=== PATIENT | female | born 1940 | race Caucasian/White ===

== ENCOUNTER 2017-03-05 11:47 | Inpatient (IN) | payer MEDICARE ==
[~2017-03-05] VITALS: Ht 167.6 cm; Wt 82.2 kg
[~2017-03-05 11:47] MED LIST: FOSA70TA PO; GABA300 PO; HYDR500C PO; LEVO150T7 PO; LORA-474 PO; NIFE1TAB85 PO; OMEP20TA39 PO; OXYBXL5 PO; PERC5TAB12 PO; RIVA20 PO; VITA20002 PO; VITA500T83 PO
[2017-03-05 11:48] VITALS: BP 153/70; PULSE 85; RESP 24; TEMP 98.8; O2SAT 97
--- NOTE | 2017-03-05 11:55 | PD ---
Physical Exam Date Seen by Provider: Mar 05, 2017 Time Seen by Provider: 11:51 Narrative 76 Y/O female presents with generalized Weakness and dry mouth and nose. Patient also reports falling out of bed 3 days ago, as she was pushed out of bed by her dog, but denies any pain or LOC. Patient feels Lightheaded and weak. Patient feels exhausted. Denies fever. No nausea. V/S Stable. Patient awaiting Med Bed Placement. Data Data Last Documented VS Vital Signs Date Time Temp Pulse Resp B/P Pulse Ox O2 Delivery O2 Flow Rate FiO2 03/05/17 11:48 98.8 85 24 153/70 97 Room Air [facility] Medical Record Reviewed: Yes Supervised Visit with AVERY: Yes Condition: Stable [place] Dumont Mar 05, 2017 11:55
[2017-03-05 13:15] LABS: AUTOMATED NEUTROPHIL # 21.8 TH/MM3 (1.8-7.7); BASOPHIL # 0.1 TH/MM3 (0-0.2); BASOPHIL % 0.2 % (0.0-2.0); HEMATOCRIT 37.5 % (35.0-46.0); LYMPH % 5.7 % (9.0-44.0); LYMPHOCYTE # 1.4 TH/MM3 (1.0-4.8); MEAN CELL VOLUME 97.7 FL (80.0-100.0); MEAN CORPUSCULAR HEMOGLOBIN 30.4 PG (27.0-34.0); MEAN CORPUSCULAR HGB CONC 31.1 % (32.0-36.0); MONO % 4.5 % (0.0-8.0); NEUT % 89.6 % (16.0-70.0); PLATELET COUNT 324 TH/MM3 (150-450); RED BLOOD COUNT 3.84 MIL/MM3 (4.00-5.30); RED CELL DISTRIBUTION WIDTH 14.3 % (11.6-17.2); WHITE BLOOD COUNT 24.3 TH/MM3 (4.0-11.0)
[2017-03-05 13:17] LABS: HEMO FLAGS AUTO DIFF
--- NOTE | 2017-03-05 13:37 | PD ---
HPI Chief Complaint: General Weakness Time Seen by Provider: 13:37 Travel History International Travel<30 days: No Contact w/Intl Traveler<30days: No Traveled to known affect area: No History of Present Illness HPI 76-year-old female with PMH of anemia, splenic infarction, urinary incontinence s/p InterStim implant, right AKA on Xarelto presents to the ED for evaluation of "weeks" long history of weakness, malaise, cough, anorexia. Patient denies dizziness, fevers, chills, chest pain, shortness of breath, abdominal pain, nausea, vomiting, back pain. She states that today the cough has been productive of yellowish-green sputum. She states that she saw her primary care and finished a course of Augmentin 2 days ago with no improvement of symptoms. PFSH Past Medical History Hx Anticoagulant Therapy: Yes Arthritis: Yes (OSTEO) Asthma: Yes Cancer: No Cardiovascular Problems: Yes Chemotherapy: No Cerebrovascular Accident: No Diabetes: No Diminished Hearing: No Endocrine: Yes Fibromyalgia: Yes Gastrointestinal Disorders: No Genitourinary: Yes (INCONTINENCE) Hepatitis: No Hiatal Hernia: No Hypertension: Yes Immune Disorder: Yes (FIBROMYALGIA) Implanted Vascular Access Dvce: Yes Musculoskeletal: Yes (OSTEOPOROSIS) Neurologic: No Psychiatric: No Reproductive: No Respiratory: Yes (ASTHMA) Thyroid Disease: Yes (HYPOTHYROID) Menopausal: Yes Ovarian Cysts: Yes Past Surgical History Abdominal Surgery: Yes (APPY) AICD: No Appendectomy: Yes Arteriovenous Shunt: No Body Medical Devices: BREAST IMPLANTS Cardiac Surgery: No Ear Surgery: No Endocrine Surgery: No Eye Surgery: No Genitourinary Surgery: Yes (BLADDER SLING) Gynecologic Surgery: Yes (HYSTERECTOMY) Hysterectomy: Yes Insulin Pump: No Joint Replacement: Yes (left hip) Neurologic Surgery: No Oral Surgery: No Pacemaker: No Thoracic Surgery: Yes (BREAST IMPLANTS) Other Surgery: Yes Social History Alcohol Use: Yes (OCC) Tobacco Use: No Substance Use: No Allergies-Medications (Allergen,Severity, Reaction): Coded Allergies: Bacitracin (Verified Allergy, Severe, 03/05/17) REDNESS, SWELLING Latex (Verified Allergy, Intermediate, 03/05/17) BLISTERS,RED,BURNING SKIN *MDRO Multi-Drug Resistant Organism (Unverified Adverse Reaction, Unknown , 03/05/17) MRSA wound 04/2015. MRSA PCR screen positive - 01/09/16 Reported Meds & Prescriptions Reported Meds & Active Scripts Active Nifedipine Er (Nifedipine) 30 Mg Tab 30 Mg PO DAILY Percocet 5-325 mg (Oxycodone/Acetaminophen) Oxycodone 5/325 Acetaminophen Tab 1 Tab PO Q4H PRN Neurontin (Gabapentin) 300 Mg Cap 300 Mg PO TID 30 Days Xarelto 20 Mg Tab (Rivaroxaban) 20 Mg Tab 20 Mg PO DAILY 30 Days Reported Hydroxyurea 500 Mg Cap 500 Mg PO DAILY Vitamin C (Ascorbic Acid) 500 Mg Tab 500 Mg PO DAILY Ditropan XL 5 mg (Oxybutynin Chloride) 5 Mg Lena 5 Mg PO BID Levothyroxine 150 mcg (Levothyroxine Sodium) 150 Mcg Tab 150 Mcg PO DAILY Ativan (Lorazepam) 1 Mg Tab 1 Mg PO TID Vitamin D-3 (Cholecalciferol) 2 000 Tab 2,000 Unit PO DAILY Hm Omeprazole (Omeprazole) 20 Mg Tab 20 Mg PO DAILY Fosamax (Alendronate Sodium) 70 Mg Tab 70 Mg PO Q7D TAKE 30 MINUTES BEFORE THE MORNING MEAL, ONLY WATER Review of Systems Except as stated in HPI: all other systems reviewed are Neg Physical Exam Narrative GENERAL: Well-nourished, well-developed white female in no acute distress. SKIN: Focused skin assessment warm/dry. Right AKA with well-healed surgical scars, no signs of infection. HEAD: Normocephalic. EYES: No scleral icterus. No injection or drainage. ENT: mucous membranes dry. NECK: Supple, trachea midline. No JVD or lymphadenopathy. CARDIOVASCULAR: Regular rate and rhythm without murmurs, gallops, or rubs. RESPIRATORY: Breath sounds clear and equal bilaterally. No accessory muscle use. GASTROINTESTINAL: Abdomen soft, non-tender, nondistended. Active bowel sounds. MUSCULOSKELETAL: No cyanosis. 2+ pitting edema to the mid sanders on the left. Right AKA. BACK: Nontender without obvious deformity. No CVA tenderness. Data Data Last Documented VS Vital Signs Date Time Temp Pulse Resp B/P Pulse Ox O2 Delivery O2 Flow Rate FiO2 03/05/17 11:48 98.8 85 24 153/70 97 Room Air Orders Electrocardiogram (03/05/17 11:55) Complete Blood Count With Diff (03/05/17 11:55) Basic Metabolic Panel (Bmp) (03/05/17 11:55) Troponin I (03/05/17 11:55) Urinalysis - C+S If Indicated (03/05/17 12:34) Ecg Monitoring (03/05/17 14:13) Iv Access Insert/Monitor (03/05/17 14:13) Oximetry (03/05/17 14:13) Sodium Chloride 0.9% Flush (Ns Flush) (03/05/17 14:15) Sodium Chlor 0.9% 1000 Ml Inj (Ns 1000 M (03/05/17 14:13) Chest, Single Ap (03/05/17 14:27) Sodium Chloride 0.9% Flush (Ns Flush) (03/05/17 14:30) B-Type Natriuretic Peptide (03/05/17 14:43) Ceftriaxone Inj (Rocephin Inj) (03/05/17 14:44) Azithromycin Inj (Zithromax Inj) (03/05/17 14:44) Labs Laboratory Tests Test 03/05/17 03/05/17 12:30 13:45 White Blood Count 24.3 TH/MM3 Red Blood Count 3.84 MIL/MM3 Hemoglobin 11.7 GM/DL Hematocrit 37.5 % Mean Corpuscular Volume 97.7 FL Mean Corpuscular Hemoglobin 30.4 PG Mean Corpuscular Hemoglobin 31.1 % Concent Red Cell Distribution Width 14.3 % Platelet Count 324 TH/MM3 Mean Platelet Volume 10.0 FL Neutrophils (%) (Auto) 89.6 % Lymphocytes (%) (Auto) 5.7 % Monocytes (%) (Auto) 4.5 % Eosinophils (%) (Auto) 0.0 % Basophils (%) (Auto) 0.2 % Neutrophils # (Auto) 21.8 TH/MM3 Lymphocytes # (Auto) 1.4 TH/MM3 Monocytes # (Auto) 1.1 TH/MM3 Eosinophils # (Auto) 0.0 TH/MM3 Basophils # (Auto) 0.1 TH/MM3 CBC Comment AUTO DIFF Differential Total Cells 100 Counted Neutrophils % (Manual) 84 % Band Neutrophils % 6 % Lymphocytes % 5 % Monocytes % 4 % Neutrophils # (Manual) 22.1 TH/MM3 Myelocytes 1 % Differential Comment FINAL DIFF MANUAL Platelet Estimate NORMAL Platelet Morphology Comment NORMAL Sodium Level 140 MEQ/L Potassium Level 4.0 MEQ/L Chloride Level 107 MEQ/L Carbon Dioxide Level 27.8 MEQ/L Anion Gap 5 MEQ/L Blood Urea Nitrogen 19 MG/DL Creatinine 0.90 MG/DL Estimat Glomerular Filtration 61 ML/MIN Rate Random Glucose 131 MG/DL Calcium Level 8.8 MG/DL Troponin I LESS THAN 0.02 NG/ML Urine Color YELLOW Urine Turbidity CLEAR Urine pH 6.5 Urine Specific [place] 1.014 Urine Protein TRACE mg/dL Urine Glucose (UA) NEG mg/dL Urine Ketones NEG mg/dL Urine Occult Blood TRACE Urine Nitrite NEG Urine Bilirubin NEG Urine Urobilinogen LESS THAN 2.0 MG/DL Urine Leukocyte Esterase NEG Urine RBC LESS THAN 1 /hpf Urine WBC 1 /hpf Urine Squamous Epithelial 1 /hpf Cells Urine Transitional Epithelial <1 /hpf Cells Urine Bacteria RARE /hpf Microscopic Urinalysis Comment CULT NOT INDICATED MDM Medical Decision Making Medical Screen Exam Complete: Yes Emergency Medical Condition: Yes Differential Diagnosis Anemia versus dehydration versus pneumonia versus UTI versus electrolyte abnormality versus other Narrative Course 76-year-old female with PMH of anemia, splenic infarction, urinary incontinence s/p InterStim implant, right AKA on Xarelto presents to the ED for evaluation of "weeks" long history of weakness, malaise, cough, anorexia. Patient denies dizziness, fevers, chills, chest pain, shortness of breath, abdominal pain, nausea, vomiting, back pain. She states that today the cough has been productive of yellowish-green sputum. She states that she saw her primary care and finished a course of Augmentin 2 days ago with no improvement of symptoms. Followed by Dr. Coates, PCP. Vitals reviewed. O2 saturation 97% on room air. Physical exam reveals a nontoxic-appearing white female in no acute distress. Chest is clear to auscultation bilaterally. Abdomen soft, nontender. Well- healed right AKA stump. 2+ pitting edema to the mid sanders on the left leg. Palpable DP pulse. Otherwise unremarkable. Patient was placed on continuous monitoring. IV is established. CBC: WBC 24.3 with a left shift. CMP: BUN 19, creatinine 0.9 BNP: pending Troponin: Less than 0.02. EKG: rate 78, QRS 96 ms, QTC 435 ms, normal axis. No ST changes. Reading obscured by InterStim interference. Reviewed by Dr. Costello. CXR: Patchy areas of non-consolidative infiltrate in the left lower lung per radiology read. UA: no culture indicated Patient was administered 1 L normal saline, IV Rocephin, IV azithromycin. Patient has failed outpatient treatment, call placed to [facility] for admission. I spoke with Dr. Campbell who agrees to accept the patient to the medicine service. Please see medicine notes for disposition. Diagnosis Primary Impression: Left lower lobe pneumonia Qualified Code: J18.1 - Pneumonia of left lower lobe due to infectious organism Additional Impression: Dehydration Condition: Stable Mariela Alanis Mar 05, 2017 13:37
[2017-03-05 13:44] LABS: ANION GAP 5 MEQ/L (5-15); BICARBONATE 27.8 MEQ/L (21.0-32.0); BLOOD UREA NITROGEN 19 MG/DL (7-18); CHLORIDE 107 MEQ/L (98-107); GLOMERULAR FILTRATION RATE 61 ML/MIN (>89); SODIUM (NA) 140 MEQ/L (136-145)
[2017-03-05 13:50] LABS: BANDS 6 % (0-6); MYELOCYTES 1 % (0-0); NEUTROPHIL # MANUAL DIFF 22.1 TH/MM3 (1.8-7.7); POLYS (SEG NEUTROPHILS) 84 % (16-70); WBC DIFF SAMPLE 100
[2017-03-05 13:52] LABS: PLATELET ESTIMATE SMEAR NORMAL (NORMAL); PLATELET MORPHOLOGY NORMAL (NORMAL); SCAN/DIFF FINAL DIFF MANUAL
[2017-03-05] MEDS ORDERED: SODIUM CHLOR 0.9% 1000 ML INJ 1,000 ML IV ONE (14:13)
[2017-03-05] MEDS ORDERED: SODIUM CHLORIDE 0.9% FLUSH 10 ML FLUSH IVF PRN ×2 (14:15→14:30)
[2017-03-05 14:23] LABS: BACTERIA, URINE RARE /hpf; BLOOD, URINE TRACE (NEG); COMMENT (UR) CULT NOT INDICATED; CULTURE IF INDICATED CULT NOT INDICATED; GLUCOSE,URINE NEG (NEG); KETONE, URINE NEG (NEG); NITRITE,URINE NEG (NEG); PH, URINE 6.5 (5.0-8.5); SQUAMOUS EPITHELIAL CELL URINE 1 /hpf (0-5); TRANSITIONAL EPI CELLS, URINE <1 /hpf; URINE COLOR YELLOW (YELLW/STRAW)
[2017-03-05] MEDS ORDERED: cefTRIAXone INJ 2,000 MG in SODIUM CHLORIDE 0.9% INJ 100 ML IV STA (14:44)
[2017-03-05] MEDS ORDERED: AZITHROMYCIN INJ 500 MG in SODIUM CHLOR 0.9% 250 ML INJ 250 ML IV STA (14:44)
--- NOTE | 2017-03-05 15:21 | RADRPT ---
EXAM DATE/TIME: 03/05/2017 15:00 [facility] COMPARISON: CHEST SINGLE AP, January 04, 2016, 13:45. INDICATIONS : Cough and shortness of breath post treatment for bronchitis. MEDICAL HISTORY : Hypertension. asthma; ovarian cysts SURGICAL HISTORY : Appendectomy. Hysterectomy. ENCOUNTER: Initial ACUITY: 2 weeks PAIN SCORE: 5/10 LOCATION: Bilateral upper chest FINDINGS: The patient is mildly rotated towards the right. There are patchy areas of infiltrate in the lower l ateral right lung without consolidation. Both hemidiaphragms will delineated. Left lung is clear. The heart is normal in size. CONCLUSION: Patchy areas of non-consolidative infiltrate lower lateral right lung. Anibal Alves MD on March 05, 2017 at 15:19 Board Certified Radiologist. This report was verified electronically.
[2017-03-05 15:45] VITALS: O2SAT 100
[2017-03-05] MEDS ORDERED: ASCO500T PO (16:29)
[2017-03-05] MEDS ORDERED: FOSA70TA PO (16:29)
[2017-03-05] MEDS ORDERED: GABA300C5 PO (16:34)
[2017-03-05] MEDS ORDERED: HYDR500C2 PO (16:34)
[2017-03-05] MEDS ORDERED: LEVO150T7 PO (16:34)
[2017-03-05] MEDS ORDERED: D-20TAB3 PO (16:34)
[2017-03-05] MEDS ORDERED: LORA-474 PO (16:37)
[2017-03-05] MEDS ORDERED: XARE20TA PO (16:41)
[2017-03-05] MEDS ORDERED: NIFE30TA61 PO (16:41)
[2017-03-05] MEDS ORDERED: OXYC1CAP PO (16:41)
[2017-03-05] MEDS ORDERED: ACETAMINOPHEN 325 MG TAB PO PRN (17:45)
--- NOTE | 2017-03-05 17:45 | HHI.HP ---
HPI Service [facility] Hospitalists Primary Care Physician [place] Coates M.D. Admission Diagnosis pneumonia weakness Chief Complaint: weak/sob Travel History International Travel<30 Days: No Contact w/Intl Traveler <30 Da: No Traveled to Known Affected Are: No History of Present Illness Pt is 76 yo with hypercoagulable d/o, essential thrombocytosis, myelofibrosis, right aka, who presents with sob and weakness. In ED found to have pna and given rocephin and azithromycin. no n/v/d. Pt was initially very weak and lethargic when I entered the room. I began asking questions about her dog and she became very alert and appeared in no distress. Review of Systems Other generally weak cough Past Family Social History Past Medical History Hypercoagulable essential thrombocytosis myelofibrosis pancreatitis splenic infarction right leg thromboembolic occlusion Osteoarthritis HTN Anemia Hyperlipidemia Hypothyroidism Asthma ckd Anxiety/Depression Fibromyalgia Hx of erosive gastritis right AKA on 01/24/[address] Frobes Left total hip arthroplasty with direct anterior exposure Anterior colporrhaphy Hysterectomy Tubal ligation Breast lumpectomy (benign) Reported Medications Reported Meds & Active Scripts Active Reported Xarelto (Rivaroxaban) 20 Mg Tab 20 Mg PO DAILY Oxycodone (Oxycodone HCl) 5 Mg Cap 5 Mg PO Q4H PRN Nifedipine ER 24 HR (Nifedipine) 30 Mg Tab 30 Mg PO DAILY Ativan (Lorazepam) 1 Mg Tab 1 Mg PO TID PRN Levothyroxine (Levothyroxine Sodium) 150 Mcg Tab 150 Mcg PO DAILY Hydroxyurea 500 Mg Cap 500 Mg PO DAILY Gabapentin 300 Mg Cap 300 Mg PO TID D-2000 Maximum Strength (Cholecalciferol) 2,000 Unit Tab 2,000 Units PO DAILY Ascorbic Acid 500 Mg Tab 500 Mg PO Allergies: Coded Allergies: Bacitracin (Verified Allergy, Severe, 03/05/17) REDNESS, SWELLING Latex (Verified Allergy, Intermediate, 03/05/17) BLISTERS,RED,BURNING SKIN *MDRO Multi-Drug Resistant Organism (Unverified Adverse Reaction, Unknown , 03/05/17) MRSA wound 04/2015. MRSA PCR screen positive - 01/09/16 Family History Mother - Hx of aneurysm, blood clot when she was Father - CAD/[place] Brother - Hx of CAD, Ulcerative colitis, Diabetes Sister - Hx of colon cancer Social History no etoh/tob Physical Exam Vital Signs initially appeared lethargic after mentioning her dog..pt perked up and was very alert and no appearance of labored breathing. heart reg lung wheezes gavin. diminished bases abd s/nt ext right aka. Vital Signs Date Time Temp Pulse Resp B/P Pulse Ox O2 Delivery O2 Flow Rate FiO2 03/05/17 15:45 Room Air 03/05/17 15:45 100 Room Air 03/05/17 11:48 98.8 85 24 153/70 97 Room Air Laboratory Laboratory Tests Test 03/05/17 03/05/17 12:30 13:45 White Blood Count 24.3 Red Blood Count 3.84 Hemoglobin 11.7 Hematocrit 37.5 Mean Corpuscular Volume 97.7 Mean Corpuscular Hemoglobin 30.4 Mean Corpuscular Hemoglobin 31.1 Concent Red Cell Distribution Width 14.3 Platelet Count 324 Mean Platelet Volume 10.0 Neutrophils (%) (Auto) 89.6 Lymphocytes (%) (Auto) 5.7 Monocytes (%) (Auto) 4.5 Eosinophils (%) (Auto) 0.0 Basophils (%) (Auto) 0.2 Neutrophils # (Auto) 21.8 Lymphocytes # (Auto) 1.4 Monocytes # (Auto) 1.1 Eosinophils # (Auto) 0.0 Basophils # (Auto) 0.1 CBC Comment AUTO DIFF Differential Total Cells 100 Counted Neutrophils % (Manual) 84 Band Neutrophils % 6 Lymphocytes % 5 Monocytes % 4 Neutrophils # (Manual) 22.1 Myelocytes 1 Differential Comment FINAL DIFF MANUAL Platelet Estimate NORMAL Platelet Morphology Comment NORMAL Sodium Level 140 Potassium Level 4.0 Chloride Level 107 Carbon Dioxide Level 27.8 Anion Gap 5 Blood Urea Nitrogen 19 Creatinine 0.90 Estimat Glomerular Filtration 61 Rate Random Glucose 131 Calcium Level 8.8 Troponin I LESS THAN 0.02 Urine Color YELLOW Urine Turbidity CLEAR Urine pH 6.5 Urine Specific [place] 1.014 Urine Protein TRACE Urine Glucose (UA) NEG Urine Ketones NEG Urine Occult Blood TRACE Urine Nitrite NEG Urine Bilirubin NEG Urine Urobilinogen LESS THAN 2.0 Urine Leukocyte Esterase NEG Urine RBC LESS THAN 1 Urine WBC 1 Urine Squamous Epithelial 1 Cells Urine Transitional Epithelial <1 Cells Urine Bacteria RARE Microscopic Urinalysis Comment CULT NOT INDICATED Result Diagram: 03/05/17 1230 03/05/17 1230 Assessment and Plan Problem List: (1) Pneumonia Status: Acute Plan: Pt is 76 yo with essential thrombocytosis, myelofibrosis, hypercoagulable problems with both venous and arterial thrombosis. right AKA. on chronic hydrea and xarelto. presents with cough and weakness. found to have wbc 24k and right lung infiltrate concerning for CAP. cont iv abx to cover CAP nebs as needed. CTchest. oxygen PT. cont her xarelto and hydrea further w/up as needed. 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 In the case of services not specified as inpatient-only, they are appropriately provided as inpatient services in accordance with the 2-midnight benchmark. Estimated LOS (days): 3 3 days is the estimated time the patient will need to remain in the hospital, assuming treatment plan goals are met and no additional complications. Post-Hospital Plan: Home Austin Campbell MD Mar 05, 2017 17:45
[2017-03-05] MEDS: GABAPENTIN 300 MG CAP PO SCH (19:17)
[2017-03-05] MEDS: RESP: ALBUTEROL 2.5 MG/IPRATROPIUM 0.5 MG NEB (SCH) NEB (19:19)
[2017-03-05 19:20] VITALS: O2SAT 96
[2017-03-05 20:10] VITALS: TEMP 98.9
[2017-03-05 20:17] VITALS: BP 138/62; PULSE 93; RESP 18; TEMP 98; O2SAT 97
--- NOTE | 2017-03-05 20:32 | RADRPT ---
EXAM DATE/TIME: 03/05/2017 19:49 [facility] COMPARISON: CT THORAX W/O CONTRAST, January 27, 2015, 20:49. INDICATIONS : Shortness of breath; possible pneumonia. RADIATION DOSE: 6.14 CTDIvol (mGy) MEDICAL HISTORY : Cardiovascular disease. Hypertension. SURGICAL HISTORY : breast augmentation ENCOUNTER: Initial ACUITY: 1 day PAIN SCALE: 0/10 LOCATION: chest TECHNIQUE: Volumetric scanning of the chest was performed. Using automated exposure control and adjustment of t he mA and/or kV according to patient size, radiation dose was kept as low as reasonably achievable to obtain optimal diagnostic quality images. FINDINGS: LUNGS: There are new scattered areas of opacity, characterized by increased ground substance and non-consoli dative opacity located in the periphery of the right lower lung and in the lateral left midlung. No focal areas of consolidation seen. PLEURAE: Prior CT had demonstrated a moderate-sized left pleural effusion. This has resolved. No pleural eff usion seen on today's examination. MEDIASTINUM: The heart and great vessels demonstrate no acute abnormality. There is no mediastinal or hilar lymph adenopathy. AXILLAE: Within normal limits. No lymphadenopathy. Bilateral breast implants. MUSCULOSKELETAL: Within normal limits for patient age. MISCELLANEOUS: Prior CT demonstrated marked splenomegaly. The spleen is normal today's exam measuring 7.1 cm in garcia perior/inferior extent. CONCLUSION: 1. There are new patchy areas of non-consolidative infiltrate and groundglass opacity in the peripher y of the right lung and a solitary area of non-consolidative infiltrate in the left lung. 2. Interval resolution of left pleural effusion and splenomegaly. Anibal Alves MD on March 05, 2017 at 20:25 Board Certified Radiologist. This report was verified electronically.
[2017-03-06] VITALS (7 sets, daily range): BP systolic 106–126; BP diastolic 53–71; PULSE 68–95; RESP 16–20; TEMP 98–99.8; O2SAT 95–99
[2017-03-06] MEDS: LEVOTHYROXINE SODIUM 150 MCG TAB PO SCH (05:34)
[2017-03-06 07:23] LABS: AUTOMATED NEUTROPHIL # 12.1 TH/MM3 (1.8-7.7); BASOPHIL # 0.1 TH/MM3 (0-0.2); BASOPHIL % 0.8 % (0.0-2.0); EOSINOPHIL # 0.5 TH/MM3 (0-0.4); HEMO FLAGS DIFF FINAL; LYMPH % 14.3 % (9.0-44.0); LYMPHOCYTE # 2.4 TH/MM3 (1.0-4.8); MEAN CORPUSCULAR HEMOGLOBIN 30.9 PG (27.0-34.0); MEAN CORPUSCULAR HGB CONC 31.6 % (32.0-36.0); MONO % 10.7 % (0.0-8.0); NEUT % 71.2 % (16.0-70.0); PLATELET COUNT 274 TH/MM3 (150-450); RED BLOOD COUNT 3.36 MIL/MM3 (4.00-5.30); RED CELL DISTRIBUTION WIDTH 14.3 % (11.6-17.2); WHITE BLOOD COUNT 16.9 TH/MM3 (4.0-11.0)
[2017-03-06 07:28] LABS: BICARBONATE 23.6 MEQ/L (21.0-32.0); POTASSIUM 3.4 MEQ/L (3.5-5.1)
[2017-03-06] MEDS: RESP: ALBUTEROL 2.5 MG/IPRATROPIUM 0.5 MG NEB (SCH) NEB ×3 (08:10→20:50)
[2017-03-06] MEDS: NIFEdipine 30 MG SUSTAINED RELEASE TAB PO SCH ×2 (09:00→09:23)
[2017-03-06] MEDS: HYDROXYUREA 500 MG CAP PO SCH (09:22)
[2017-03-06] MEDS: GABAPENTIN 300 MG CAP PO SCH ×3 (09:23→18:08)
[2017-03-06] MEDS: RIVAROXABAN 20 MG TAB PO SCH (09:23)
--- NOTE | 2017-03-06 13:06 | HHI.PR ---
Subjective Remarks pt seems more alert and comfortable. Objective Vitals heart reg lung course bs gavin abd s/nt ext no edema. aka right Vital Signs Date Time Temp Pulse Resp B/P Pulse Ox O2 Delivery O2 Flow Rate FiO2 03/06/17 12:01 98.2 91 18 106/53 96 03/06/17 08:11 99 21 03/06/17 08:00 Room Air 03/06/17 08:00 98.7 76 20 126/71 97 03/06/17 04:00 98.0 72 16 116/59 97 03/06/17 00:00 98.1 85 18 112/56 99 03/06/17 00:00 Room Air 03/05/17 20:17 98.0 93 18 138/62 97 03/05/17 20:10 98.9 03/05/17 19:20 96 03/05/17 15:45 Room Air 03/05/17 15:45 100 Room Air 03/05/17 03/05/17 03/06/17 15:00 23:00 07:00 Intake Total 120 ml 120 ml Balance 120 ml 120 ml Intake Oral 120 ml 120 ml # Voids 1 1 # Bowel Movements 0 0 Result Diagram: 03/06/17 0637 03/06/17 0637 A/P Problem List: (1) Pneumonia Status: Acute Plan: Pt is 76 yo with essential thrombocytosis, myelofibrosis, hypercoagulable problems with both venous and arterial thrombosis. right AKA. on chronic hydrea and xarelto. presents with cough and weakness. found to have wbc 24k and right lung infiltrate concerning for CAP. ct shows smaller infiltrate on the left. overall today seems better. wbc trending down sputum gs/cx. urine antigens nebs prn mucinex cont abx oxygen PT. 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
[2017-03-06] MEDS ORDERED: PADIMATE (CHAPSTICK) 4.5 GM TUBE TOPICAL PRN (13:15)
[2017-03-06] MEDS ORDERED: guaiFENesin E.R. 600 MG TAB PO ONE (13:15)
[2017-03-06] MEDS ORDERED: PADIMATE (CHAPSTICK) 4.5 GM TUBE TOPICAL ONE (13:15)
--- NOTE | 2017-03-06 14:39 | EKG ---
Date Performed: 03/05/2017 Time Performed: 12:13:43 PTAGE: 76 years EKG: ELECTRONIC ATRIAL PACEMAKER Tracing appears to have an atrial pacer at a high escape rate, conduction is controlled by sinus mechanism. Possibility of artifact should also be considered Clinic al correlation is strongly recommended ABNORMAL RHYTHM ECG PREVIOUS TRACING : 01/04/2016 13.39 DOCTOR: Eris Best Interpretating Date/Time 03/06/2017 14:38:04
[2017-03-06] MEDS: cefTRIAXone INJ 1,000 MG in SODIUM CHLORIDE 0.9% INJ 100 ML IV SCH (15:55)
[2017-03-06] MEDS: AZITHROMYCIN INJ 500 MG in SODIUM CHLOR 0.9% 250 ML INJ 250 ML IV SCH (18:07)
[2017-03-06] MEDS: LORazepam 1 MG TAB PO PRN (21:11)
[2017-03-06] MEDS: guaiFENesin E.R. 600 MG TAB PO SCH (21:11)
[2017-03-07] VITALS (8 sets, daily range): BP systolic 115–160; BP diastolic 56–77; PULSE 66–92; RESP 17–20; TEMP 97.9–99.9; O2SAT 91–98
[2017-03-07] MEDS: LEVOTHYROXINE SODIUM 150 MCG TAB PO SCH (04:05)
[2017-03-07] MEDS: LORazepam 1 MG TAB PO PRN ×2 (04:05→08:39)
[2017-03-07 07:40] LABS: AUTOMATED NEUTROPHIL # 11.5 TH/MM3 (1.8-7.7); BASOPHIL # 0.1 TH/MM3 (0-0.2); BASOPHIL % 0.6 % (0.0-2.0); EOSINOPHIL # 0.6 TH/MM3 (0-0.4); EOSINOPHIL % 3.4 % (0.0-4.0); HEMATOCRIT 33.6 % (35.0-46.0); HEMO FLAGS DIFF FINAL; LYMPH % 14.3 % (9.0-44.0); LYMPHOCYTE # 2.3 TH/MM3 (1.0-4.8); MEAN CELL VOLUME 97.6 FL (80.0-100.0); MEAN CORPUSCULAR HEMOGLOBIN 31.3 PG (27.0-34.0); MONO % 10.4 % (0.0-8.0); NEUT % 71.3 % (16.0-70.0); PLATELET COUNT 288 TH/MM3 (150-450); RED BLOOD COUNT 3.44 MIL/MM3 (4.00-5.30); RED CELL DISTRIBUTION WIDTH 14.5 % (11.6-17.2); WHITE BLOOD COUNT 16.1 TH/MM3 (4.0-11.0)
[2017-03-07 07:54] LABS: BICARBONATE 23.1 MEQ/L (21.0-32.0)
[2017-03-07 07:57] LABS: POTASSIUM 4.2 MEQ/L (3.5-5.1)
[2017-03-07] MEDS: guaiFENesin E.R. 600 MG TAB PO SCH ×2 (08:38→21:50)
[2017-03-07] MEDS: RIVAROXABAN 20 MG TAB PO SCH (08:38)
[2017-03-07] MEDS: GABAPENTIN 300 MG CAP PO SCH ×3 (08:39→17:13)
[2017-03-07] MEDS: HYDROXYUREA 500 MG CAP PO SCH (08:42)
[2017-03-07] MEDS: RESP: ALBUTEROL 2.5 MG/IPRATROPIUM 0.5 MG NEB (SCH) NEB ×3 (09:12→20:48)
--- NOTE | 2017-03-07 09:33 | HHI.PR ---
Subjective Remarks c/o right lbp.msk. starting to cough up sputum Objective Vitals heart reg lung scattered wheezing gavin. diminished right base abd s/nt ext no edema. aka right tender to palpation lumbar paraspinous muscles. Vital Signs Date Time Temp Pulse Resp B/P Pulse Ox O2 Delivery O2 Flow Rate FiO2 03/07/17 08:00 99.2 82 20 140/71 98 03/07/17 04:00 Room Air 03/07/17 04:00 97.9 85 17 160/77 97 03/07/17 00:15 Room Air 03/07/17 00:15 98.1 66 19 115/60 96 03/06/17 20:45 98.4 68 17 113/55 95 03/06/17 20:45 Room Air 03/06/17 16:00 99.8 95 18 119/58 97 03/06/17 12:01 98.2 91 18 106/53 96 03/06/17 03/06/17 03/07/17 15:00 23:00 07:00 Intake Total 480 ml 500 ml 900 ml Balance 480 ml 500 ml 900 ml Intake Oral 480 ml 500 ml 900 ml # Voids 2 1 2 # Bowel Movements 0 0 Result Diagram: 03/07/17 0655 03/07/17 0653 A/P Problem List: (1) Pneumonia Status: Acute Plan: Pt is 76 yo with essential thrombocytosis, myelofibrosis, hypercoagulable problems with both venous and arterial thrombosis. right AKA. on chronic hydrea and xarelto. presents with cough and weakness. found to have wbc 24k and right lung infiltrate concerning for CAP. ct shows smaller infiltrate on the left. sputum gs/cx. urine antigens pending nebs and mucomyst scheduled. mucinex cont abx oxygen PT. oob inc spirometer. cont her xarelto and hydrea few doses naprosyn for lbp. (2) Hypercoagulable state Status: Chronic (3) Essential thrombocytosis Status: Chronic (4) HTN (hypertension), benign Status: Chronic (5) Hypothyroidism Status: Chronic (6) Hyperlipidemia Status: Chronic (7) Hypertension Status: Chronic (8) Above knee amputation of right lower extremity Status: Chronic Austin Campbell MD Mar 07, 2017 09:33
[2017-03-07] MEDS ORDERED: NAPROXEN 500 MG TAB PO ONE (11:00)
[2017-03-07] MEDS: RESP: ACETYLCYSTEINE 20% 30 ML NEB NEB SCH ×2 (13:42→20:48)
[2017-03-07] MEDS: cefTRIAXone INJ 1,000 MG in SODIUM CHLORIDE 0.9% INJ 100 ML IV SCH (15:00)
[2017-03-07] MEDS: AZITHROMYCIN INJ 500 MG in SODIUM CHLOR 0.9% 250 ML INJ 250 ML IV SCH (15:43)
[2017-03-07] MEDS: NAPROXEN 500 MG TAB PO SCH (21:50)
[2017-03-08] VITALS (8 sets, daily range): BP systolic 104–134; BP diastolic 54–73; PULSE 66–96; RESP 14–18; TEMP 97.1–98.1; O2SAT 94–98
[2017-03-08] MEDS: LEVOTHYROXINE SODIUM 150 MCG TAB PO SCH (05:33)
[2017-03-08 08:05] LABS: AUTOMATED NEUTROPHIL # 8.4 TH/MM3 (1.8-7.7); BASOPHIL # 0.1 TH/MM3 (0-0.2); BASOPHIL % 0.9 % (0.0-2.0); EOSINOPHIL # 0.5 TH/MM3 (0-0.4); HEMO FLAGS DIFF FINAL; LYMPH % 14.8 % (9.0-44.0); LYMPHOCYTE # 1.8 TH/MM3 (1.0-4.8); MEAN CELL VOLUME 98.7 FL (80.0-100.0); MEAN CORPUSCULAR HEMOGLOBIN 30.8 PG (27.0-34.0); MEAN CORPUSCULAR HGB CONC 31.2 % (32.0-36.0); MONO % 11.7 % (0.0-8.0); NEUT % 68.6 % (16.0-70.0); PLATELET COUNT 230 TH/MM3 (150-450); RED BLOOD COUNT 3.44 MIL/MM3 (4.00-5.30); RED CELL DISTRIBUTION WIDTH 14.2 % (11.6-17.2); WHITE BLOOD COUNT 12.2 TH/MM3 (4.0-11.0)
[2017-03-08] MEDS: HYDROXYUREA 500 MG CAP PO SCH (08:49)
[2017-03-08] MEDS: NAPROXEN 500 MG TAB PO SCH (09:00)
[2017-03-08] MEDS: GABAPENTIN 300 MG CAP PO SCH ×3 (09:00→17:38)
[2017-03-08] MEDS: guaiFENesin E.R. 600 MG TAB PO SCH ×2 (09:00→22:17)
[2017-03-08] MEDS: RIVAROXABAN 20 MG TAB PO SCH (09:00)
[2017-03-08] MEDS: RESP: ACETYLCYSTEINE 20% 30 ML NEB NEB SCH ×3 (09:01→19:10)
[2017-03-08] MEDS: RESP: ALBUTEROL 2.5 MG/IPRATROPIUM 0.5 MG NEB (SCH) NEB ×3 (09:01→19:10)
--- NOTE | 2017-03-08 11:45 | HHI.PR ---
Subjective Remarks Pt overall feeling better today Less cough/congestion Afebrile Pt is on RA Objective Vitals Vital Signs Date Time Temp Pulse Resp B/P Pulse Ox O2 Delivery O2 Flow Rate FiO2 03/08/17 09:04 98 21 03/08/17 08:00 97.8 71 18 121/73 98 03/08/17 04:00 97.1 66 14 105/54 97 03/08/17 00:00 97.6 80 16 104/54 94 03/07/17 20:50 95 03/07/17 20:00 Room Air 03/07/17 20:00 97.9 85 18 117/57 91 03/07/17 16:00 99.4 92 20 122/56 97 03/07/17 13:42 96 21 03/07/17 12:00 99.9 83 18 141/65 97 03/07/17 03/07/17 03/08/17 15:00 23:00 07:00 Intake Total 240 ml 530 ml 240 ml Balance 240 ml 530 ml 240 ml Intake Oral 240 ml 530 ml 240 ml # Voids 2 2 0 # Bowel Movements 0 0 0 Result Diagram: 03/08/17 0735 03/07/17 0653 Other Results Laboratory Tests Test 03/07/17 03/07/17 03/08/17 06:53 06:55 07:35 Sodium Level 143 MEQ/L Potassium Level 4.2 MEQ/L Chloride Level 109 MEQ/L Carbon Dioxide Level 23.1 MEQ/L Anion Gap 11 MEQ/L Blood Urea Nitrogen 12 MG/DL Creatinine 0.63 MG/DL Estimat Glomerular Filtration 92 ML/MIN Rate Random Glucose 95 MG/DL Calcium Level 8.1 MG/DL White Blood Count 16.1 TH/MM3 12.2 TH/MM3 Red Blood Count 3.44 MIL/MM3 3.44 MIL/MM3 Hemoglobin 10.8 GM/DL 10.6 GM/DL Hematocrit 33.6 % 34.0 % Mean Corpuscular Volume 97.6 FL 98.7 FL Mean Corpuscular Hemoglobin 31.3 PG 30.8 PG Mean Corpuscular Hemoglobin 32.0 % 31.2 % Concent Red Cell Distribution Width 14.5 % 14.2 % Platelet Count 288 TH/MM3 230 TH/MM3 Mean Platelet Volume 9.8 FL 9.6 FL Neutrophils (%) (Auto) 71.3 % 68.6 % Lymphocytes (%) (Auto) 14.3 % 14.8 % Monocytes (%) (Auto) 10.4 % 11.7 % Eosinophils (%) (Auto) 3.4 % 4.0 % Basophils (%) (Auto) 0.6 % 0.9 % Neutrophils # (Auto) 11.5 TH/MM3 8.4 TH/MM3 Lymphocytes # (Auto) 2.3 TH/MM3 1.8 TH/MM3 Monocytes # (Auto) 1.7 TH/MM3 1.4 TH/MM3 Eosinophils # (Auto) 0.6 TH/MM3 0.5 TH/MM3 Basophils # (Auto) 0.1 TH/MM3 0.1 TH/MM3 CBC Comment DIFF FINAL DIFF FINAL Differential Comment Imaging Last Impressions Chest X-Ray 03/05/17 1427 Signed Impressions: Service Date/Time: Sunday, March 05, 2017 15:00 - CONCLUSION: Patchy areas of non-consolidative infiltrate lower lateral right lung. Anibal Alves MD Chest CT 03/05/17 0000 Signed Impressions: Service Date/Time: Sunday, March 05, 2017 19:49 - CONCLUSION: 1. There are new patchy areas of non-consolidative infiltrate and groundglass opacity in the periphery of the right lung and a solitary area of non-consolidative infiltrate in the left lung. 2. Interval resolution of left pleural effusion and splenomegaly. Anibal Alves MD Objective Remarks General: NAD, AAOx3 Chest: CTA Cardiac: Regular Abd: +BS, soft ND/NT Ext: no edema A/P Problem List: (1) Pneumonia Status: Acute Plan: - Pt is 76 yo with essential thrombocytosis, myelofibrosis, hypercoagulable problems with both venous and arterial thrombosis and previous right AKA. - Pt is on chronic Hydrea and Xarelto. - She presented with cough and weakness. She was found to have WBC 24k at admission and right lung infiltrate concerning for CAP. - CT Thorax (03/05) --> There are new patchy areas of non-consolidative infiltrate and groundglass opacity in the periphery of the right lung and a solitary area of non-consolidative infiltrate in the left lung. - Sputum GS with rare positive cocci in pairs and moderate budding yeast with pseudohyphae. - Sputum CX is pending. - Urine antigens are negative. - Cont. nebs and Mucomyst scheduled. - Cont. Mucinex - Cont. Azithromycin/Ceftriaxone - Pt has been weaned off supplemental O2 to RA - PT daily/Encourage OOB - Inc spirometer. - Cont her Xarelto and Hydrea - Pt plans to return to home at the time of discharge. 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 Assessment and plan formulated with Marline Keys PA-C. I agree with the above. Marline Keys Mar 08, 2017 11:45 Herber Mosquera DO March 19, 2017 10:58
[2017-03-08] MEDS: LEVOFLOXACIN 500 MG TAB PO SCH (14:00)
[2017-03-09 01:30] VITALS: BP 113/54; PULSE 81; RESP 16; TEMP 98.3; O2SAT 98
[2017-03-09 05:27] VITALS: BP 132/66; PULSE 76; RESP 16; TEMP 97.7; O2SAT 97
[2017-03-09] MEDS: LEVOTHYROXINE SODIUM 150 MCG TAB PO SCH (06:08)
[2017-03-09 08:00] VITALS: BP 136/63; PULSE 83; RESP 18; TEMP 97.9; O2SAT 100
[2017-03-09] MEDS: RESP: ACETYLCYSTEINE 20% 30 ML NEB NEB SCH ×3 (08:38→20:00)
[2017-03-09] MEDS: RESP: ALBUTEROL 2.5 MG/IPRATROPIUM 0.5 MG NEB (SCH) NEB ×2 (08:38→14:36)
[2017-03-09] MEDS: RIVAROXABAN 20 MG TAB PO SCH (09:25)
[2017-03-09] MEDS: GABAPENTIN 300 MG CAP PO SCH ×3 (09:25→18:32)
[2017-03-09] MEDS: HYDROXYUREA 500 MG CAP PO SCH (09:26)
[2017-03-09] MEDS: LEVOFLOXACIN 500 MG TAB PO SCH (09:27)
[2017-03-09] MEDS: guaiFENesin E.R. 600 MG TAB PO SCH ×2 (09:27→21:47)
[2017-03-09] MEDS ORDERED: MUCI600T PO (09:56)
--- NOTE | 2017-03-09 09:59 | HHI.FF ---
Face to Face Verification Diagnosis: (1) Left lower lobe pneumonia (2) HTN (hypertension), benign (3) Hypercoagulable state (4) Hyperlipidemia (5) Hypothyroidism Physical Therapy Order: Evaluate and Treat, Improve ambulation, Strength and gait training Home Health Nursing Order: Medical education Signs/symptoms of disease process Nursing assessment with vital signs I have seen patient Sheila Villa on 03/09/17. My clinical findings support the need for the requested home health care services because: High risk of falls I certify that my clinical findings support that this patient is homebound because: Unsteady gait/balance Marline Keys Mar 09, 2017 09:59
--- NOTE | 2017-03-09 10:03 | HHI.DCPOC ---
Discharge Care Plan Diagnosis: (1) Left lower lobe pneumonia (2) HTN (hypertension), benign (3) Hypercoagulable state (4) Essential thrombocytosis (5) Hyperlipidemia (6) Hypothyroidism Goals to Promote Your Health - Patient will complete 5 more days of Levaquin 500mg once daily - She can continue to use Mucinex 600mg twice daily to help with the mucous production - Patient will continue to use Albuterol/Ipratropium nebulizers every 4-6 hours while awake for the next 4-5 days and then can be backed down to every 4-6 hours as needed for any shortness of breath or wheezing. - Patient is to followup with her PCP, Dr. Coates, in 1 week, call for an appt. Directions to Meet Your Goals Take your medications as prescribed Follow your dietary instruction Follow activity as directed Keep your appointments as scheduled Take your immunizations and boosters as scheduled If your symptoms worsen call your PCP, if no PCP go to Urgent Care Center or Emergency Room Smoking is Dangerous to Your Health. Avoid second hand smoke Call the 24-hour hour crisis hotline for domestic abuse at Marline Keys Mar 09, 2017 10:03 Herber Mosquera DO March 19, 2017 11:00
--- NOTE | 2017-03-09 11:16 | HHI.DS ---
Discharge Summary Admission Date Mar 05, 2017 at 16:04 Discharge Date: Mar 10, 2017 Admitting Diagnosis pneumonia weakness (1) Pneumonia Diagnosis: Principal (2) Hypercoagulable state (3) Essential thrombocytosis Diagnosis: Secondary (4) HTN (hypertension), benign Diagnosis: Secondary (5) Hypothyroidism Diagnosis: Secondary (6) Hyperlipidemia Diagnosis: Secondary (7) Hypertension Diagnosis: Secondary (8) Above knee amputation of right lower extremity Diagnosis: Secondary Brief History Pt is 76 yo with hypercoagulable d/o, essential thrombocytosis, myelofibrosis, right aka, who presents with sob and weakness. In ED found to have pna and given rocephin and azithromycin. no n/v/d. Pt was initially very weak and lethargic when I entered the room. I began asking questions about her dog and she became very alert and appeared in no distress. CBC/BMP: 03/08/17 0735 03/07/17 0653 Significant Findings Laboratory Tests Test 03/07/17 03/07/17 03/08/17 06:53 06:55 07:35 Chloride Level 109 MEQ/L (98-107) Calcium Level 8.1 MG/DL (8.5-10.1) White Blood Count 16.1 TH/MM3 12.2 TH/MM3 (4.0-11.0) (4.0-11.0) Red Blood Count 3.44 MIL/MM3 3.44 MIL/MM3 (4.00-5.30) (4.00-5.30) Hemoglobin 10.8 GM/DL 10.6 GM/DL (11.6-15.3) (11.6-15.3) Hematocrit 33.6 % 34.0 % (35.0-46.0) (35.0-46.0) Neutrophils (%) (Auto) 71.3 % (16.0-70.0) Monocytes (%) (Auto) 10.4 % 11.7 % (0.0-8.0) (0.0-8.0) Neutrophils # (Auto) 11.5 TH/MM3 8.4 TH/MM3 (1.8-7.7) (1.8-7.7) Monocytes # (Auto) 1.7 TH/MM3 1.4 TH/MM3 (0-0.9) (0-0.9) Eosinophils # (Auto) 0.6 TH/MM3 0.5 TH/MM3 (0-0.4) (0-0.4) Mean Corpuscular Hemoglobin 31.2 % Concent (32.0-36.0) Imaging Last Impressions Chest X-Ray 03/05/17 1427 Signed Impressions: Service Date/Time: Sunday, March 05, 2017 15:00 - CONCLUSION: Patchy areas of non-consolidative infiltrate lower lateral right lung. Anibal Alves MD Chest CT 03/05/17 0000 Signed Impressions: Service Date/Time: Sunday, March 05, 2017 19:49 - CONCLUSION: 1. There are new patchy areas of non-consolidative infiltrate and groundglass opacity in the periphery of the right lung and a solitary area of non-consolidative infiltrate in the left lung. 2. Interval resolution of left pleural effusion and splenomegaly. Anibal Alves MD PE at Discharge General: NAD, AAOx3 Chest: CTA Cardiac: Regular Abd: +BS, soft ND/NT Ext: no edema Hospital Course Pt is 76 yo with essential thrombocytosis, myelofibrosis, hypercoagulable problems with both venous and arterial thrombosis and previous right AKA. Pt is on chronic Hydrea and Xarelto. She presented with cough and weakness. She was found to have WBC 24k at admission and right lung infiltrate concerning for CAP. CT Thorax (03/05) revealed new patchy areas of non-consolidative infiltrate and groundglass opacity in the periphery of the right lung and a solitary area of non-consolidative infiltrate in the left lung. Sputum GS with rare positive cocci in pairs and moderate budding yeast with pseudohyphae. Preliminary sputum culture with heavy growth of normal respiratory luna. Urine antigens are negative for legionella and strep pneumoniae. Pt has been treated with Duo nebs and Mucomyst scheduled, Mucinex BID, and was on IV Azithromycin/Ceftriaxone up until 03/08/17 when she was switched to PO Levaquin which she tolerated well. Pts sputum culture resulted on 03/10/17 with MRSA resistant to Levaquin so her antibiotics were changed to Bactrim DS BID dosing x 7 days at discharge, first dose give prior to discharge. Pt has been weaned off supplemental O2 to RA. PT evaluated the pt and recommended HHC/PT. Pt evaluated on the day of discharge and is felt to be stable for discharge to home on po Bactrim, Mucinex BID and continued Duoneb treatments. Pt will need to followup with her PCP, Dr. [place] Coates, in 1 week. Pt Condition on Discharge: Stable Discharge Disposition: Disch w/ Home Health Serv Discharge Instructions DIET: Follow Instructions for: Heart Healthy Diet Activities you can perform: Regular-No Restrictions Follow up Referrals: PCP Follow-up - [address] [place] Coates New Medications: Albuterol Neb (Albuterol Neb) 2.5 Mg/3 Ml Neb 2.5 MG NEB Q4HR NEB PRN SHORTNESS OF BREATH #60 Ref 0 NEBULE Ipratropium Neb (Ipratropium Neb) 0.5 Mg/2.5 Ml Amp 0.5 MG NEB Q4HR NEB PRN SHORTNESS OF BREATH #180 Ref 0 NEBULE Nebulizer/Adult Mask (Nebulizer/Adult Mask) 1 Kit Kit 1 KIT .ROUTE DIRECTED Breathing Treatment #1 Ref 0 KIT Sulfamethoxazole-Trimethoprim (Bactrim DS) 800-160 Mg Tab 1 TAB PO BID Infection #14 Ref 0 TAB Guaifenesin ER 12 HR (Mucinex ER 12 HR) 600 Mg Lena 600 MG PO BID pneumonia #14 TAB Continued Medications: Ascorbic Acid (Ascorbic Acid) 500 Mg Tab 500 MG PO TAB Cholecalciferol (D-2000 Maximum Strength) 2,000 Unit Tab 2000 UNITS PO DAILY Nutritional Supplement #30 Ref 0 TAB Gabapentin (Gabapentin) 300 Mg Cap 300 MG PO TID #90 Ref 0 CAP Hydroxyurea (Hydroxyurea) 500 Mg Cap 500 MG PO DAILY Ref 0 CAP Levothyroxine (Levothyroxine) 150 Mcg Tab 150 MCG PO DAILY Thyroid #30 Ref 0 TAB Lorazepam (Ativan) 1 Mg Tab 1 MG PO TID PRN ANXIETY AND/OR AGITATION Ref 0 TAB Oxycodone (Oxycodone) 5 Mg Cap 5 MG PO Q4H PRN PAIN Ref 0 CAP Rivaroxaban (Xarelto) 20 Mg Tab 20 MG PO DAILY Blood Clot Prevention Ref 0 TAB Additional Information Patient examined. Assessment and plan formulated with Marline Keys PA-C. I agree with the above. Marline Keys Mar 09, 2017 11:16 Herber Mosquera DO March 19, 2017 10:58
[2017-03-09] MEDS ORDERED: IPRA0.02 NEB (11:18)
[2017-03-09] MEDS ORDERED: ALBU0.08 NEB (11:18)
[2017-03-09] MEDS ORDERED: NEBULIZER/ADULT1 KIT (11:19)
[2017-03-09] MEDS: ACYCLOVIR 5% OINT 5 APPLIC/5 GM TUBE TOPICAL SCH ×3 (14:00→21:50)
[2017-03-09 16:00] VITALS: BP 124/62; PULSE 82; RESP 18; TEMP 97.3; O2SAT 99
[2017-03-09 20:00] VITALS: BP 116/55; PULSE 94; RESP 20; TEMP 98.1; O2SAT 98
[2017-03-09 20:14] VITALS: O2SAT 99
[2017-03-09] MEDS: RESP: ALBUTEROL 2.5 MG/IPRATROPIUM 0.5 MG NEB (PRN) NEB (20:14)
[2017-03-10] VITALS: BP 119/58; PULSE 96; RESP 20; TEMP 98; O2SAT 93
[2017-03-10 04:00] VITALS: BP 141/80; PULSE 86; RESP 20; TEMP 98.6; O2SAT 98
[2017-03-10] MEDS: LEVOTHYROXINE SODIUM 150 MCG TAB PO SCH (05:37)
[2017-03-10] MEDS: ACYCLOVIR 5% OINT 5 APPLIC/5 GM TUBE TOPICAL SCH (05:39)
[2017-03-10] MEDS: RESP: ALBUTEROL 2.5 MG/IPRATROPIUM 0.5 MG NEB (PRN) NEB ×2 (07:55→13:07)
[2017-03-10] MEDS: RESP: ACETYLCYSTEINE 20% 30 ML NEB NEB SCH ×2 (07:55→13:07)
[2017-03-10 08:00] VITALS: BP 145/63; PULSE 85; RESP 20; TEMP 97.3; O2SAT 100
[2017-03-10] MEDS ORDERED: BACT800T5 PO (08:49)
[2017-03-10] MEDS ORDERED: SULFAMETHOXAZOLE-TRIMETHOPRIM DS 800-160 MG TAB PO SCH (09:00)
[2017-03-10] MEDS: GABAPENTIN 300 MG CAP PO SCH ×2 (09:00→13:00)
[2017-03-10] MEDS: guaiFENesin E.R. 600 MG TAB PO SCH (09:58)
[2017-03-10] MEDS: RIVAROXABAN 20 MG TAB PO SCH (09:58)
[2017-03-10] MEDS: HYDROXYUREA 500 MG CAP PO SCH (10:03)
[2017-03-10] MEDS ORDERED: ACYC5OIN4 TOPICAL (10:36)
[2017-03-10 12:00] VITALS: BP 182/83; PULSE 81; RESP 20; TEMP 98; O2SAT 97
== END 2017-03-10 17:25 | disposition home health service (06) | DRG 194 ==
LOC: NEPC 11:47 → NEDA 16:04 → N04A 20:17
PROVIDERS: ADMIT Hospitalist; ATTEND Hospitalist
DX: J18.9 Pneumonia, unspecified organism (principal); D75.81 Myelofibrosis; D68.59 Other primary thrombophilia; Z89.611 Acquired absence of right leg above knee; D47.3 Essential (hemorrhagic) thrombocythemia; Z79.01 Long term (current) use of anticoagulants; I12.9 Hypertensive chronic kidney disease with stage 1 through stage 4 chronic kidney disease, or unspecified chronic kidney disease; E03.9 Hypothyroidism, unspecified; E78.5 Hyperlipidemia, unspecified; N18.9 Chronic kidney disease, unspecified; M19.90 Unspecified osteoarthritis, unspecified site; M79.7 Fibromyalgia; F32.9 Major depressive disorder, single episode, unspecified; F41.9 Anxiety disorder, unspecified; Z96.642 Presence of left artificial hip joint
CPT/HCPCS: 71010; 71250; 80048; 81001; 83880; 84484; 85007; 85025; 85027; 86403; 87070; 87077; 87186; 87205; 87449; 93005; 94150; 94640; 94664; J0456; J0696; J7030; J7050; J7608

== ENCOUNTER 2018-03-14 15:42 | Emergency (ER) | payer MEDICARE ==
[~2018-03-14] VITALS: Ht 152.4 cm; Wt 75.0 kg
[~2018-03-14 15:42] MED LIST changes: +ACYC5OIN4 TOPICAL; +ALBU0.08 NEB; +ASCO500T PO; +BACT800T5 PO; +D-20TAB3 PO; -FOSA70TA PO; -GABA300 PO; +GABA300C5 PO; -HYDR500C PO; +IPRA0.02 NEB; +NEBULIZER/ADULT1 KIT; -NIFE1TAB85 PO; -OMEP20TA39 PO; -OXYBXL5 PO; +OXYC1CAP PO; -PERC5TAB12 PO; -RIVA20 PO; -VITA20002 PO; -VITA500T83 PO; +XARE20TA PO
[2018-03-14 15:51] VITALS: BP 121/60; PULSE 65; RESP 16; TEMP 98.3; O2SAT 100
[2018-03-14] MEDS ORDERED: SODIUM CHLOR 0.9% 1000 ML INJ 1,000 ML IV ONE (16:15)
[2018-03-14 16:28] VITALS: BP 137/63; PULSE 62; RESP 12; O2SAT 95; O2SAT 98
--- NOTE | 2018-03-14 16:33 | PD ---
HPI Chief Complaint: Skin Problem Time Seen by Provider: 15:56 Travel History International Travel<30 days: No Contact w/Intl Traveler<30days: No Traveled to known affect area: No History of Present Illness HPI 77 YO F with PMH of fibromyalgia, thrombocytosis, HTN, iron deficiency anemia on Xarelto presents to the ED for evaluation of wound of the dorsum of the left foot. Patient states the wound has been present for " a few weeks." She denies fever, chills, chest pain, shortness of breath. She is largely confined to a wheelchair due to right AKA and intolerance of her prosthesis. She saw her computer forensic examiner, Dr. Atwood, who was concerned for ulcer caused by venous insufficiency versus hydrea treatment, withheld the medication and prescribed steroid cream. The patient then saw a provider at urgent care and was prescribed doxycycline. She states that she then saw Dr. Forbes who added a second (unknown) antibiotic. She has also been evaluated by an infectious disease provider. Patient has been referred to vascular surgeon but has not yet followed up. PFSH Past Medical History Hx Anticoagulant Therapy: Yes Arthritis: Yes (OSTEO) Asthma: Yes Cancer: No Cardiovascular Problems: Yes Chemotherapy: No Cerebrovascular Accident: No Diabetes: No Diminished Hearing: No Endocrine: Yes Fibromyalgia: Yes Gastrointestinal Disorders: No Genitourinary: Yes (INCONTINENCE) Hepatitis: No Hiatal Hernia: No Hypertension: Yes Immune Disorder: Yes (FIBROMYALGIA) Implanted Vascular Access Dvce: Yes Musculoskeletal: Yes Neurologic: No Psychiatric: No Reproductive: No Respiratory: Yes Thyroid Disease: Yes (HYPOTHYROID) Menopausal: Yes Ovarian Cysts: Yes Past Surgical History Abdominal Surgery: Yes (APPY) AICD: No Appendectomy: Yes Arteriovenous Shunt: No Body Medical Devices: BREAST IMPLANTS Cardiac Surgery: No Ear Surgery: No Endocrine Surgery: No Eye Surgery: No Genitourinary Surgery: Yes (BLADDER SLING) Gynecologic Surgery: Yes (HYSTERECTOMY) Hysterectomy: Yes Insulin Pump: No Joint Replacement: Yes (left hip) Neurologic Surgery: No Oral Surgery: No Pacemaker: No Thoracic Surgery: Yes (BREAST IMPLANTS) Other Surgery: Yes Social History Alcohol Use: Yes (OCC) Tobacco Use: No Substance Use: No Allergies-Medications (Allergen,Severity, Reaction): Coded Allergies: bacitracin (Unverified Allergy, Severe, 03/14/18) REDNESS, SWELLING latex (Unverified Allergy, Intermediate, 03/14/18) BLISTERS,RED,BURNING SKIN *MDRO Multi-Drug Resistant Organism (Unverified Adverse Reaction, Unknown , 03/14/18) MRSA (wound) - 04/2015; (sputum) - 03/07/17 MRSA PCR Screen POSITIVE - 01/09/16 Reported Meds & Prescriptions Reported Meds & Active Scripts Active Clindamycin (Clindamycin HCl) 150 Mg Cap 450 Mg PO Q6H 7 Days Acyclovir Topical (Acyclovir) 5% Oint 1 Applic TOPICAL 5 TIMES A DAY Bactrim DS (Sulfamethoxazole-Trimethoprim) 800-160 Mg Tab 1 Tab PO BID Ipratropium Neb (Ipratropium [place]) 0.5 Mg/2.5 Ml Amp 0.5 Mg NEB Q4HR NEB PRN Albuterol Neb (Albuterol Sulfate) 2.5 Mg/3 Ml Neb 2.5 Mg NEB Q4HR NEB PRN Reported Vesicare (Solifenacin) 10 Mg Tab 10 Mg PO DAILY Ambien (Zolpidem Tartrate) 10 Mg Tab 10 Mg PO HS PRN Amoxicillin 500 Mg Cap 500 Mg PO TID 10 Days Norvasc (Amlodipine Besylate) 2.5 Mg Tab 2.5 Mg PO DAILY Xarelto (Rivaroxaban) 10 Mg Tab 10 Mg PO DAILY Ativan (Lorazepam) 1 Mg Tab 1 Mg PO TID PRN Levothyroxine (Levothyroxine Sodium) 150 Mcg Tab 150 Mcg PO DAILY Gabapentin 300 Mg Cap 300 Mg PO TID D-2000 Maximum Strength (Cholecalciferol) 2,000 Unit Tab 2,000 Units PO DAILY Review of Systems Except as stated in HPI: all other systems reviewed are Neg Physical Exam Narrative GENERAL: Well-nourished, well-developed white female no acute distress. SKIN: Focused skin assessment warm/dry. 1 cm shallow ulcer of the dorsum of the left foot with surrounding erythema, edema, tenderness and warmth. Stage I decubitus ulcer noted. HEAD: Normocephalic. EYES: No scleral icterus. No injection or drainage. NECK: Supple, trachea midline. No JVD or lymphadenopathy. CARDIOVASCULAR: Regular rate and rhythm without murmurs, gallops, or rubs. RESPIRATORY: Breath sounds clear and equal bilaterally. No accessory muscle use. GASTROINTESTINAL: Abdomen soft, non-tender, nondistended. MUSCULOSKELETAL: No cyanosis. FOCUSED LEFT LOWER EXTREMITY EXAM: 2+ DP pulse. Edema and erythema of the anterior aspect of the sanders. Homans sign positive. Patient retains full, active, painless ROM of the extremity. Neurovascularly intact distally. BACK: Nontender without obvious deformity. No CVA tenderness. Data Data Last Documented VS Vital Signs Date Time Temp Pulse Resp B/P (MAP) Pulse Ox O2 Delivery O2 Flow Rate FiO2 03/14/18 19:25 03/14/18 18:30 72 17 96 Room Air 03/14/18 15:51 98.3 Orders Orders Complete Blood Count With Diff (03/14/18 16:15) Comprehensive Metabolic Panel (03/14/18 16:15) Prothrombin Time / Inr (Pt) (03/14/18 16:15) Act Partial Throm Time (Ptt) (03/14/18 16:15) Urinalysis - C+S If Indicated (03/14/18 16:15) Blood Culture (03/14/18 16:15) Ecg Monitoring (03/14/18 16:15) Iv Access Insert/Monitor (03/14/18 16:15) Oximetry (03/14/18 16:15) Sodium Chlor 0.9% 1000 Ml Inj (Ns 1000 M (03/14/18 16:15) Us Leg Venous Doppler (03/14/18 16:15) Foot, Limited (2vws) (03/14/18 16:15) Clindamycin 900 Mg/Ns Premix (Cleocin 90 (03/14/18 17:45) Ed Discharge Order (03/14/18 19:22) Labs Laboratory Tests Test 03/14/18 17:05 03/14/18 18:08 03/14/18 18:15 White Blood Count 13.4 TH/MM3 Red Blood Count 4.69 MIL/MM3 Hemoglobin 13.2 GM/DL Hematocrit 41.4 % Mean Corpuscular Volume 88.3 FL Mean Corpuscular Hemoglobin 28.2 PG Mean Corpuscular Hemoglobin Concent 31.9 % Red Cell Distribution Width 16.7 % Platelet Count 688 TH/MM3 Mean Platelet Volume 9.6 FL Neutrophils (%) (Auto) 64.7 % Lymphocytes (%) (Auto) 18.0 % Monocytes (%) (Auto) 10.8 % Eosinophils (%) (Auto) 5.8 % Basophils (%) (Auto) 0.7 % Neutrophils # (Auto) 8.7 TH/MM3 Lymphocytes # (Auto) 2.4 TH/MM3 Monocytes # (Auto) 1.5 TH/MM3 Eosinophils # (Auto) 0.8 TH/MM3 Basophils # (Auto) 0.1 TH/MM3 CBC Comment AUTO DIFF Differential Comment AUTO DIFF CONFIRMED Platelet Estimate HIGH Platelet Morphology Comment ENLARGED Prothrombin Time 12.7 SEC Prothromb Time International Ratio 1.3 RATIO Activated Partial Thromboplast Time 34.7 SEC Blood Urea Nitrogen 12 MG/DL Creatinine 0.67 MG/DL Random Glucose 74 MG/DL Total Protein 6.6 GM/DL Albumin 3.2 GM/DL Calcium Level 8.2 MG/DL Alkaline Phosphatase 81 U/L Aspartate Amino Transf (AST/SGOT) 40 U/L Alanine Aminotransferase (ALT/SGPT) 38 U/L Total Bilirubin 0.2 MG/DL Sodium Level 141 MEQ/L Potassium Level 4.2 MEQ/L Chloride Level 110 MEQ/L Carbon Dioxide Level 23.6 MEQ/L Anion Gap 7 MEQ/L Estimat Glomerular Filtration Rate 86 ML/MIN Urine Color LIGHT-YELLOW Urine Turbidity CLEAR Urine pH 6.5 Urine Specific [place] 1.009 Urine Protein NEG mg/dL Urine Glucose (UA) NEG mg/dL Urine Ketones NEG mg/dL Urine Occult Blood SMALL Urine Nitrite NEG Urine Bilirubin NEG Urine Urobilinogen LESS THAN 2.0 MG/DL Urine Leukocyte Esterase TRACE Urine RBC 11 /hpf Urine WBC 1 /hpf Urine Squamous Epithelial Cells 1 /hpf Microscopic Urinalysis Comment CATH-CULT NOT IND MDM Medical Decision Making Medical Screen Exam Complete: Yes Emergency Medical Condition: Yes Differential Diagnosis cellulitis versus DVT versus venous stasis ulcer versus anemia versus other Narrative Course 77 YO F with PMH of fibromyalgia, thrombocytosis, HTN, iron deficiency anemia on Xarelto presents to the ED for evaluation of wound of the dorsum of the left foot. Patient states the wound has been present for " a few weeks." She is largely confined to a wheelchair due to right AKA and intolerance of her prosthesis. She saw her computer forensic examiner, Dr. Atwood who prescribed steroid cream. She then saw a provider at urgent care and was prescribed doxycycline. She then saw Dr. Forbes who added a second (unknown) antibiotic. She has also been evaluated by an infectious disease provider. Patient is afebrile on presentation. On exam there is a shallow ulcer on the dorsum of the left foot with surrounding cellulitic changes. Patient also has some edema of the calf with positive Homans sign. IV was established. CBC: WBC 13.4. Hemoglobin 13.2. INR: 1.3. CMP: BUN 12, creatinine 0.67. Calcium 8.2. UA: No culture indicated. X-ray: Osseous structures of foot grossly intact. Ultrasound left lower extremity: No sonographic evidence for DVT. Redemonstration of Shetty's cyst. Calf soft tissue edema. Patient was administered 900 mg clindamycin IV. She is prescribed a course of antibiotics to take home. She is instructed to follow-up with the wrist liner and vascular surgeon. She is given strict instructions to return to the ED in 48 hours if symptoms have not improved. The patient and her son at bedside indicated understanding of the instructions and are agreeable to care plan. The patient is stable and discharged home. Diagnosis Primary Impression: Cellulitis of left lower extremity Referrals: Abel Bailey MD, Jessica Isabel DPM Additional Instructions: Rest, hydrate. Keep the foot wound clean, dry and covered. Begin antibiotics tomorrow and take them until every dose is gone. Continue treatment of sacral decubitus as previously prescribed. Call the wrist liner tomorrow for a follow up appointment as discussed. Call the vascular surgeon tomorrow for a follow up appointment as discussed. Return to the ED for worsening symptoms or any urgent/ emergent medical condition. Med/Other Pt SpecificInfo: Prescription(s) given Scripts Clindamycin (Clindamycin) 150 Mg Cap 450 MG PO Q6H for Infection for 7 Days, #84 CAP 0 Refills Prov: Mayank Briceño MD 03/14/18 Disposition: 01 DISCHARGE HOME Condition: Stable Mariela Alanis March 14, 2018 16:33
--- NOTE | 2018-03-14 16:47 | RADRPT ---
EXAM DATE/TIME: 03/14/2018 16:28 [facility] COMPARISON: No previous studies available for comparison. INDICATIONS : Left foot inflammation and pain, sore on dorsal surface. MEDICAL HISTORY : None. SURGICAL HISTORY : None. ENCOUNTER: Initial ACUITY: 3 weeks PAIN SCORE: 5/10 LOCATION: Left foot, dorsal surface. FINDINGS: Two view examination of the left foot demonstrates no soft tissue swelling, dislocation, or fracture. The calcaneus is intact. Bony mineralization is normal. CONCLUSION: The osseous structures of the foot are grossly intact. Anibal Alves MD on March 14, 2018 at 16:45 Board Certified Radiologist. This report was verified electronically.
[2018-03-14] MEDS ORDERED: AMBI10TA PO (17:05)
[2018-03-14] MEDS ORDERED: XARE10TA PO (17:05)
[2018-03-14] MEDS ORDERED: AMOX500C PO (17:05)
[2018-03-14] MEDS ORDERED: VESI10TA2 PO (17:05)
[2018-03-14] MEDS ORDERED: NORV2.5T PO (17:05)
--- NOTE | 2018-03-14 17:09 | RADRPT ---
EXAM DATE/TIME: 03/14/2018 16:34 [facility] COMPARISON: US LEG LEFT VENOUS DOPPLER, March 26, 2015, 18:41. INDICATIONS : Left anterior foot wound x 2 weeks. MEDICAL HISTORY : Renal insufficiency, chronic. Hypertension. Hypothyroidism. Peripheral Vascular Disease. Asthma. Splenic Infarction. Gastritis. Esophagitis. Fibromyalgia. MRSA wound infection - 04/2015. Essent ial Thrombocytosis. SURGICAL HISTORY : Appendectomy. Hysterectomy. Right Above the Knee Amputation. Left total hip replacement. ENCOUNTER: Initial ACUITY: 2 weeks PAIN SCORE: 3/10 LOCATION: Left leg. TECHNIQUE: Venous ultrasound of the leg was performed from the inguinal ligament to the proximal calf. Real-herminio e, color Doppler and spectral tracing, compression and augmentation techniques were used. FINDINGS: There is normal compressibility of the deep venous system from the inguinal region to the proximal ca lf. No echogenic clot is seen in the lumen of the common femoral, femoral, popliteal, and posterior tibial veins. There is a normal response of the venous system to proximal and distal augmentation an d respiration. Diffuse soft tissue edema with a small complex hypoechoic collection in the popliteal fossa measuring 3.9 x 2.9 x 1.2 cm similar to prior exam. CONCLUSION: 1. No sonographic evidence for left lower extremity DVT. 2. Redemonstration of left popliteal fossa Shetty's cyst. 3. Calf soft tissue edema. Yoni Norris MD on March 14, 2018 at 17:06 Board Certified Radiologist. This report was verified electronically.
[2018-03-14 17:29] LABS: AUTOMATED NEUTROPHIL # 8.7 TH/MM3 (1.8-7.7); BASOPHIL # 0.1 TH/MM3 (0-0.2); BASOPHIL % 0.7 % (0.0-2.0); EOSINOPHIL # 0.8 TH/MM3 (0-0.4); EOSINOPHIL % 5.8 % (0.0-4.0); HEMATOCRIT 41.4 % (35.0-46.0); HEMOGLOBIN 13.2 GM/DL (11.6-15.3); LYMPHOCYTE # 2.4 TH/MM3 (1.0-4.8); MEAN CELL VOLUME 88.3 FL (80.0-100.0); MEAN CORPUSCULAR HEMOGLOBIN 28.2 PG (27.0-34.0); MEAN CORPUSCULAR HGB CONC 31.9 % (32.0-36.0); MEAN PLATELET VOLUME 9.6 FL (7.0-11.0); MONO % 10.8 % (0.0-8.0); MONOCYTE # 1.5 TH/MM3 (0-0.9); NEUT % 64.7 % (16.0-70.0); PLATELET COUNT 688 TH/MM3 (150-450); RED BLOOD COUNT 4.69 MIL/MM3 (4.00-5.30); RED CELL DISTRIBUTION WIDTH 16.7 % (11.6-17.2); WHITE BLOOD COUNT 13.4 TH/MM3 (4.0-11.0)
[2018-03-14 17:31] VITALS: BP 135/60; PULSE 62; RESP 13; O2SAT 97
[2018-03-14 17:40] LABS: INTERNATIONAL NORMALIZED RATIO 1.3 RATIO; PROTHROMBIN TIME - PATIENT 12.7 SEC (9.8-11.6)
[2018-03-14] MEDS ORDERED: CLINDAMYCIN 900 MG/NS PREMIX 50 ML IV ONE (17:45)
[2018-03-14 18:22] VITALS: BP 143/63; PULSE 70; RESP 18; O2SAT 98
[2018-03-14 18:30] VITALS: BP 127/58; PULSE 72; RESP 17; O2SAT 96
[2018-03-14 18:47] LABS: BILIRUBIN, URINE NEG (NEG); BLOOD, URINE SMALL (NEG); GLUCOSE,URINE NEG (NEG); KETONE, URINE NEG (NEG); NITRITE,URINE NEG (NEG); PH, URINE 6.5 (5.0-8.5); SQUAMOUS EPITHELIAL CELL URINE 1 /hpf (0-5); URINE COLOR LIGHT-YELLOW (YELLW/STRAW); URINE LEUKOCYTE ESTERASE TRACE (NEG)
[2018-03-14] MEDS ORDERED: CLIN150C14 PO (18:57)
[2018-03-14 19:13] LABS: ALT (GPT) 38 U/L (10-53)
[2018-03-14 19:15] LABS: ALKALINE PHOSPHATASE 81 U/L (45-117); TOTAL BILIRUBIN ADULT 0.2 MG/DL (0.2-1.0); TOTAL PROTEIN 6.6 GM/DL (6.4-8.2)
[2018-03-14 19:19] LABS: ALBUMIN 3.2 GM/DL (3.4-5.0); AST (GOT) 40 U/L (15-37); BICARBONATE 23.6 MEQ/L (21.0-32.0); BLOOD UREA NITROGEN 12 MG/DL (7-18); CALCIUM 8.2 MG/DL (8.5-10.1); CHLORIDE 110 MEQ/L (98-107); CREATININE 0.67 MG/DL (0.50-1.00); GLOMERULAR FILTRATION RATE 86 ML/MIN (>89); GLUCOSE,RANDOM 74 MG/DL (74-106); SODIUM (NA) 141 MEQ/L (136-145)
== END 2018-03-14 19:53 | disposition home or self-care (01) ==
LOC: NEPE 15:42
DX: L03.116 Cellulitis of left lower limb (principal); E03.9 Hypothyroidism, unspecified; D50.9 Iron deficiency anemia, unspecified; L89.891 Pressure ulcer of other site, stage 1; M79.672 Pain in left foot; M79.7 Fibromyalgia
CPT/HCPCS: 73620; 80053; 81001; 85025; 85610; 85730; 87040; 93971; 96361; 96365; 99285; J7030

== ENCOUNTER 2018-04-10 14:30 | Emergency (ER) | payer MEDICARE ==
[~2018-04-10] VITALS: Ht 152.4 cm; Wt 60.0 kg
[~2018-04-10 14:30] MED LIST changes: +AMBI10TA PO; +AMOX500C PO; -ASCO500T PO; +CLIN150C14 PO; -NEBULIZER/ADULT1 KIT; +NORV2.5T PO; -OXYC1CAP PO; +VESI10TA2 PO; +XARE10TA PO; -XARE20TA PO
[2018-04-10 14:34] VITALS: BP 160/65; PULSE 72; RESP 16; TEMP 98.3; O2SAT 99
[2018-04-10] MEDS ORDERED: LIDOCAINE HCL 5% OINT 37 GM TUBE TOPICAL ONE (15:45)
[2018-04-10 16:25] LABS: AUTOMATED NEUTROPHIL # 8.1 TH/MM3 (1.8-7.7); BASOPHIL # 0.1 TH/MM3 (0-0.2); BASOPHIL % 0.9 % (0.0-2.0); EOSINOPHIL # 0.8 TH/MM3 (0-0.4); EOSINOPHIL % 5.8 % (0.0-4.0); HEMATOCRIT 44.2 % (35.0-46.0); LYMPH % 23.5 % (9.0-44.0); LYMPHOCYTE # 3.3 TH/MM3 (1.0-4.8); MEAN CELL VOLUME 80.7 FL (80.0-100.0); MEAN CORPUSCULAR HEMOGLOBIN 25.6 PG (27.0-34.0); MEAN CORPUSCULAR HGB CONC 31.8 % (32.0-36.0); MEAN PLATELET VOLUME 9.8 FL (7.0-11.0); MONO % 11.9 % (0.0-8.0); MONOCYTE # 1.7 TH/MM3 (0-0.9); NEUT % 57.9 % (16.0-70.0); PLATELET COUNT 714 TH/MM3 (150-450); RED BLOOD COUNT 5.47 MIL/MM3 (4.00-5.30); RED CELL DISTRIBUTION WIDTH 17.4 % (11.6-17.2)
[2018-04-10 16:42] LABS: INTERNATIONAL NORMALIZED RATIO 1.3 RATIO; PROTHROMBIN TIME - PATIENT 13.4 SEC (9.8-11.6)
[2018-04-10 16:47] LABS: ALBUMIN 3.7 GM/DL (3.4-5.0); ALKALINE PHOSPHATASE 100 U/L (45-117); ALT (GPT) 19 U/L (10-53); AST (GOT) 30 U/L (15-37); BICARBONATE 28.5 MEQ/L (21.0-32.0); BLOOD UREA NITROGEN 16 MG/DL (7-18); CALCIUM 9.2 MG/DL (8.5-10.1); CHLORIDE 104 MEQ/L (98-107); CREATININE 0.87 MG/DL (0.50-1.00); GLOMERULAR FILTRATION RATE 63 ML/MIN (>89); GLUCOSE,RANDOM 85 MG/DL (74-106); SODIUM (NA) 143 MEQ/L (136-145); TOTAL BILIRUBIN ADULT 0.5 MG/DL (0.2-1.0); TOTAL PROTEIN 7.5 GM/DL (6.4-8.2)
--- NOTE | 2018-04-10 16:49 | PD ---
HPI Chief Complaint: Skin Problem Time Seen by Provider: 15:23 Travel History International Travel<30 days: No Contact w/Intl Traveler<30days: No Traveled to known affect area: No History of Present Illness HPI 77-year-old female with history of right below-knee amputation for coagulopathy , presents emergency department complaining of a wound on the dorsal aspect of the foot that is been present for months. She says that she has been evaluated by her wound care physician, Dr. Cardona and he has been taking care of her. Says that she decided to come in today because she had some mild stinging. Says that she has been taking clindamycin 450 mg every 6 hours for at least one week to help resolve this wound. She denies any increased redness or swelling. She denies severe pain. She denies fevers or chills. PFSH Past Medical History Hx Anticoagulant Therapy: Yes Arthritis: Yes (OSTEO) Asthma: Yes Anxiety: Yes Cancer: No Cardiovascular Problems: Yes Chemotherapy: No Cerebrovascular Accident: No Diabetes: No Diminished Hearing: No Endocrine: Yes Fibromyalgia: Yes Gastrointestinal Disorders: No Genitourinary: Yes (INCONTINENCE) Hepatitis: No Hiatal Hernia: No Hypertension: Yes Immune Disorder: Yes (FIBROMYALGIA) Implanted Vascular Access Dvce: Yes Musculoskeletal: Yes Neurologic: No Psychiatric: No Reproductive: No Respiratory: Yes Pneumonia: Yes Thyroid Disease: Yes (HYPOTHYROID) ?: Not Menopausal: Yes Ovarian Cysts: Yes Past Surgical History Abdominal Surgery: Yes (APPY) AICD: No Appendectomy: Yes Arteriovenous Shunt: No Body Medical Devices: BREAST IMPLANTS Cardiac Surgery: No Ear Surgery: No Endocrine Surgery: No Eye Surgery: No Genitourinary Surgery: Yes (BLADDER SLING) Gynecologic Surgery: Yes (HYSTERECTOMY) Hysterectomy: Yes Insulin Pump: No Joint Replacement: Yes (LEFT TOTAL HIP REPLACEMENT) Neurologic Surgery: No Oral Surgery: No Pacemaker: No Thoracic Surgery: Yes (BREAST IMPLANTS) Other Surgery: Yes (RIGHT REAR INTERSTEM IMPLANT) Social History Alcohol Use: Yes (OCC) Tobacco Use: No Substance Use: No Allergies-Medications (Allergen,Severity, Reaction): Coded Allergies: bacitracin (Unverified Allergy, Severe, 03/14/18) REDNESS, SWELLING latex (Unverified Allergy, Intermediate, 03/14/18) BLISTERS,RED,BURNING SKIN *MDRO Multi-Drug Resistant Organism (Unverified Adverse Reaction, Unknown , 03/14/18) MRSA (wound) - 04/2015; (sputum) - 03/07/17 MRSA PCR Screen POSITIVE - 01/09/16 Reported Meds & Prescriptions Reported Meds & Active Scripts Active Clindamycin (Clindamycin HCl) 150 Mg Cap 450 Mg PO Q6H 7 Days Acyclovir Topical (Acyclovir) 5% Oint 1 Applic TOPICAL 5 TIMES A DAY Bactrim DS (Sulfamethoxazole-Trimethoprim) 800-160 Mg Tab 1 Tab PO BID Ipratropium Neb (Ipratropium [place]) 0.5 Mg/2.5 Ml Amp 0.5 Mg NEB Q4HR NEB PRN Albuterol Neb (Albuterol Sulfate) 2.5 Mg/3 Ml Neb 2.5 Mg NEB Q4HR NEB PRN Reported Vesicare (Solifenacin) 10 Mg Tab 10 Mg PO DAILY Ambien (Zolpidem Tartrate) 10 Mg Tab 10 Mg PO HS PRN Amoxicillin 500 Mg Cap 500 Mg PO TID 10 Days Norvasc (Amlodipine Besylate) 2.5 Mg Tab 2.5 Mg PO DAILY Xarelto (Rivaroxaban) 10 Mg Tab 10 Mg PO DAILY Ativan (Lorazepam) 1 Mg Tab 1 Mg PO TID PRN Levothyroxine (Levothyroxine Sodium) 150 Mcg Tab 150 Mcg PO DAILY Gabapentin 300 Mg Cap 300 Mg PO TID D-2000 Maximum Strength (Cholecalciferol) 2,000 Unit Tab 2,000 Units PO DAILY Review of Systems Except as stated in HPI: all other systems reviewed are Neg Physical Exam Narrative GENERAL: Well-developed, well-nourished in no apparent distress SKIN: Focused skin assessment warm/dry. Dorsal aspect of left foot-area of ulceration with white exudate, surrounding erythema extending out approximately 1-2 cm. No pitting edema. Neurovascular intact HEAD: Atraumatic. Normocephalic. EYES: Pupils equal and round. No scleral icterus. No injection or drainage. ENT: No nasal bleeding or discharge. Mucous membranes pink and moist. NECK: Trachea midline. No JVD. CARDIOVASCULAR: Regular rate and rhythm. No murmur appreciated. RESPIRATORY: No accessory muscle use. Clear to auscultation. Breath sounds equal bilaterally. MUSCULOSKELETAL: No obvious deformities. No clubbing. No cyanosis. No edema. Homans sign negative bilaterally NEUROLOGICAL: Awake and alert. No obvious cranial nerve deficits. Motor grossly within normal limits. Normal speech. PSYCHIATRIC: Appropriate mood and affect; insight and judgment normal. Data Data Last Documented VS Vital Signs Date Time Temp Pulse Resp B/P (MAP) Pulse Ox O2 Delivery O2 Flow Rate FiO2 04/10/18 14:34 98.3 72 16 160/65 (96) 99 Orders Orders Lidocaine 5% Oint (Xylocaine 5% Oint) (04/10/18 15:45) Complete Blood Count With Diff (04/10/18 15:32) Comprehensive Metabolic Panel (04/10/18 15:32) Act Partial Throm Time (Ptt) (04/10/18 15:32) Prothrombin Time / Inr (Pt) (04/10/18 15:32) Potassium Chloride (Kcl) (04/10/18 17:00) Ed Discharge Order (04/10/18 17:05) Labs Laboratory Tests Test 04/10/18 15:50 White Blood Count 14.0 TH/MM3 Red Blood Count 5.47 MIL/MM3 Hemoglobin 14.0 GM/DL Hematocrit 44.2 % Mean Corpuscular Volume 80.7 FL Mean Corpuscular Hemoglobin 25.6 PG Mean Corpuscular Hemoglobin Concent 31.8 % Red Cell Distribution Width 17.4 % Platelet Count 714 TH/MM3 Mean Platelet Volume 9.8 FL Neutrophils (%) (Auto) 57.9 % Lymphocytes (%) (Auto) 23.5 % Monocytes (%) (Auto) 11.9 % Eosinophils (%) (Auto) 5.8 % Basophils (%) (Auto) 0.9 % Neutrophils # (Auto) 8.1 TH/MM3 Lymphocytes # (Auto) 3.3 TH/MM3 Monocytes # (Auto) 1.7 TH/MM3 Eosinophils # (Auto) 0.8 TH/MM3 Basophils # (Auto) 0.1 TH/MM3 CBC Comment DIFF FINAL Differential Comment Prothrombin Time 13.4 SEC Prothromb Time International Ratio 1.3 RATIO Activated Partial Thromboplast Time 35.6 SEC Blood Urea Nitrogen 16 MG/DL Creatinine 0.87 MG/DL Random Glucose 85 MG/DL Total Protein 7.5 GM/DL Albumin 3.7 GM/DL Calcium Level 9.2 MG/DL Alkaline Phosphatase 100 U/L Aspartate Amino Transf (AST/SGOT) 30 U/L Alanine Aminotransferase (ALT/SGPT) 19 U/L Total Bilirubin 0.5 MG/DL Sodium Level 143 MEQ/L Potassium Level 3.3 MEQ/L Chloride Level 104 MEQ/L Carbon Dioxide Level 28.5 MEQ/L Anion Gap 11 MEQ/L Estimat Glomerular Filtration Rate 63 ML/MIN MDM Medical Decision Making Medical Screen Exam Complete: Yes Emergency Medical Condition: Yes Differential Diagnosis Right foot ulcer, cellulitis, erysipelas Narrative Course 77-year-old female with a history of 5 myalgia, thrombocytosis, hypertension, iron deficiency anemia on Xarelto presents emergency department complaining of a wound on the dorsal aspect of the foot that is been present for months. She says that she has been evaluated by her wound care physician, Dr. Cardona and he has been taking care of her. Says that she decided to come in today because she had some mild stinging. Says that she has been taking clindamycin 450 mg every 6 hours for at least one week to help resolve this wound. She denies any increased redness or swelling. She denies severe pain. She denies fevers or chills. Vital signs are stable. Exam findings are reassuring. Demonstrates ulceration of the dorsal aspect of the left foot. No pitting edema. Erythema extending out about 1-2 cm from the ulcer. Patient follows wound care regularly. She is currently on clindamycin 450 mg every 6 hours. I do not suspect any worsening of her ulcer today. Lidocaine applied for comfort. Patient will have her foot redressed and advised to follow-up with her document preparation specialist. She is advised to return for worsening or persistent symptoms. Diagnosis Primary Impression: Ulcer Referrals: [facility] Primary Care Physician Patient Instructions: Acute Wounds (ED), General Instructions Additional Instructions: Follow up with your wound care provider within the next few days. Take your antibiotic as previously prescribed. Keep foot clean and dry. Disposition: 01 DISCHARGE HOME Condition: Stable Becky Medina April 10, 2018 16:49
[2018-04-10] MEDS ORDERED: POTASSIUM CHLORIDE 10 MEQ CONTROLLED RELEASE TAB PO ONE (17:00)
== END 2018-04-10 17:41 | disposition home or self-care (01) ==
LOC: NEPD 14:30
DX: L97.529 Non-pressure chronic ulcer of other part of left foot with unspecified severity (principal); J45.909 Unspecified asthma, uncomplicated; F41.9 Anxiety disorder, unspecified; M79.7 Fibromyalgia; I10 Essential (primary) hypertension; E03.9 Hypothyroidism, unspecified; M19.90 Unspecified osteoarthritis, unspecified site; Z89.511 Acquired absence of right leg below knee; Z79.01 Long term (current) use of anticoagulants
CPT/HCPCS: 80053; 85025; 85610; 85730; 99283

== ENCOUNTER 2018-07-31 11:40 | Inpatient (IN) ==
--- NOTE | 2018-07-31 12:53 | ED ---
HPI General Chief complaint: Skin/Abscess/Foreign Body Stated complaint: skin Time Seen by Provider: 07/31/18 12:49 Source: patient Mode of arrival: ambulatory Limitations: no limitations History of Present Illness HPI narrative: bedsores. She states that the facility that she is now because she is not very mobile she is not being moved as much and they are getting worse.The patient is a 77-year-old female with history of essential thrombocytosis and no complications resulting to right AKA presenting for evaluation right leg wound and bedsores No fever or chills. no other complaints. She has been having pressure ulcers for about 2 weeks now since she was discharged from the hospital to a rehab facility. She denies any nausea vomiting or diarrhea. She does have bleeding from the ulcerations and she states that they are very painful. MD complaint: other ("bed sores") Onset (ago): month(s) Tetanus Immunization: <5 Years Location: buttocks Severity: severe Severity scale (1-10): 10 Quality: burning Pain Consistency: constant Relieving factors: none Exacerbating factors: movement and other (palpation) Associated symptoms: denies other symptoms Related Data Home Medications Medication Instructions Recorded Confirmed amlodipine 2.5 mg PO DAILY 07/01/18 07/31/18 levothyroxine 150 mcg PO DAILY 07/01/18 07/31/18 lorazepam 0.5 mg PO DAILY 07/01/18 07/31/18 oxycodone 10 mg PO Q4-6H PRN 07/01/18 07/31/18 rivaroxaban [Xarelto] 10 mg PO DAILY 07/01/18 07/31/18 ipratropium-albuterol 3 ml INHALATION QID PRN 07/31/18 07/31/18 Allergies Allergy/AdvReac Type Severity Reaction Status Date / Time bacitracin Allergy Severe Swelling Verified 07/31/18 12:54 latex Allergy Intermediate Itching, Verified 07/31/18 12:54 Generalized Review of Systems ROS: all other systems reviewed are negative Musculoskeletal Comments: Right AKA Integumentary/Breasts Comments: Chronic left foot wound PMFSH History History Provided By: Patient Medical History Medical History HTN (hypertension) (Acute) Blood clotting disorder (Acute) DVT (deep venous thrombosis) (Acute) Osteoarthritis (Acute) Surgical History Surgical History History of eye surgery (Acute) Amputation of leg (Acute) Social History Social History Substance History: No History of Abuse Second Hand Smoke Exposure: No Smoking Status: Never smoker How Often Do You Have a Drink Containing Alcohol: Never Recent Travel in [facility] within the Last 8 Weeks: No Recent Out of Country Travel within the Last 8 Weeks: No Exam Narrative Exam Narrative: GENERAL: Alert and oriented in moderate distress feeling uncomfortable due to wall buttock SKIN: Patient with a pressure ulcer stage 2 on buttock bilaterally. There is surrounding erythema suggestive of cellulitis. Left foot ulceration HEAD: Atraumatic. Normocephalic. EYES: Pupils equal and round. No scleral icterus. No injection or drainage. ENT: No nasal bleeding or discharge. Mucous membranes pink and moist. NECK: Trachea midline. No JVD. CARDIOVASCULAR: Regular rate and rhythm. No murmur appreciated. RESPIRATORY: No accessory muscle use. Clear to auscultation. Breath sounds equal bilaterally. GASTROINTESTINAL: Abdomen soft, non-tender, nondistended. Hepatic and splenic margins not palpable. MUSCULOSKELETAL: No obvious deformities. No clubbing. No cyanosis. Mild edema on the anterior aspect of her left foot with a 2 x 5 centimeter ulceration. Purulent discharge. Right AKA NEUROLOGICAL: Awake and alert. No obvious cranial nerve deficits. Motor grossly within normal limits. Normal speech. PSYCHIATRIC: Appropriate mood and affect; insight and judgment normal. Course Hospital Course: Patient was evaluated for possible sepsis. He does have a leukocytosis without lactic acidosis. Hemodynamically stable. She was started on Vanco and Zosyn due to the location and severity of her pressure ulcers. Patient not appearing toxic Initial Documented Vital Signs Temperature 97.8 F 07/31/18 12:45 Pulse Rate 79 07/31/18 12:45 Respiratory Rate 17 07/31/18 12:45 Blood Pressure 130/61 07/31/18 12:45 Pulse Oximetry 98 07/31/18 12:45 Last Documented Vital Signs Temperature 98.4 F 08/01/18 03:51 Pulse Rate 70 08/01/18 03:51 Respiratory Rate 16 09/18/18 03:51 Blood Pressure 136/62 08/01/18 03:51 Pulse Oximetry 98 08/01/18 03:51 Medical Decision Making MDM Narrative Medical decision making narrative: Patient with significant stage II pressure ulcers. Elevated white count not septic. Started on broad-spectrum antibiotics due to location of the bed sores which are extensive. Not appearing septic. Stable vitals afebrile was admitted for further evaluation and treatment Medical Screen Exam Complete: Yes Emergency Medical Condition: Yes Lab Data Lab results reviewed: Yes I reviewed the patient's lab results. Result diagrams: 07/31/18 13:00 07/31/18 13:00 Lab Results 07/31/18 07/31/18 07/31/18 Range/Units 13:00 13:00 13:00 WBC 16.7 H (4.0-11.0) th/mm3 RBC 4.98 (4.00-5.30) mil/mm3 Hgb 12.4 (11.6-15.3) gm/dL Hct 39.9 (35.0-46.0) % MCV 80.2 (80.0-100.0) fL MCH 24.8 L (27.0-34.0) pg MCHC 30.9 L (32.0-36.0) % RDW 19.7 H (11.6-17.2) % Plt Count 608 H (150-450) th/mm3 MPV 9.2 (7.0-11.0) fL Prelim Diff (Auto) Slide review pending Neut % (Auto) 66.4 (16.0-70.0) % Lymph % (Auto) 12.5 (9.0-44.0) % [place] % (Auto) 15.8 H (0.0-8.0) % Eos % (Auto) 4.1 H (0.0-4.0) % Baso % (Auto) 1.2 (0.0-2.0) % Neut # (Auto) 11.1 H (1.8-7.7) th/mm3 Lymph # (Auto) 2.1 (1.0-4.8) th/mm3 [place] # (Auto) 2.6 H (0.0-0.9) th/mm3 Eos # (Auto) 0.7 H (0.0-0.4) th/mm3 Baso # (Auto) 0.2 (0.0-0.2) th/mm3 WBC Differential Manual diff final Seg Neuts % (Manual) 71 H (16-70) % Band Neuts % (Manual) 2 (0-6) % Lymphocytes % (Manual) 15 (9-44) % Monocytes % (Manual) 10 H (0-8) % Basophils % (Manual) 2 (0-2) % Abs Neuts (Manual) 12.2 H (1.8-7.7) th/mm3 Differential Comment . Platelet Estimate High H (Normal) Platelet Morphology Enlarged H (Normal) Ovalocytes 1+ H (None) Sodium 141 Cancelled (136-145) meq/L Potassium 3.6 Cancelled (3.5-5.1) meq/L Chloride 108 H Cancelled (98-107) meq/L Carbon Dioxide 23.3 Cancelled (21.0-32.0) meq/L Anion Gap 10 Cancelled (5-15) meq/L BUN 14 Cancelled (7-18) mg/dL Creatinine 0.61 Cancelled (0.50-1.00) mg/dL Estimated GFR Greater than 89 Cancelled (>89) mL/min Random Glucose 90 Cancelled (74-106) mg/dL Calcium 8.7 Cancelled (8.5-10.1) mg/dL Prot Corrected Calcium Cancelled Total Bilirubin 0.4 Cancelled (0.2-1.0) mg/dL AST 18 Cancelled (15-37) U/L ALT 13 Cancelled (10-53) U/L Alkaline Phosphatase 69 Cancelled (45-117) U/L Total Protein 6.2 L Cancelled (6.4-8.2) g/dL Albumin 2.8 L Cancelled (3.4-5.0) g/dL Discharge Plan Discharge Disposition Patient Disposition: 30 Still Patient Discharge Condition Condition: Stable Discharge Details Diagnosis: Cellulitis, HTN (hypertension), Decubitus skin ulcer Physicians Team ED Provider: Fernando Noriega Primary Care Provider: Derek Oviedo Attending Provider: Austin Campbell Discharge Interventions Interventions: ED Discharge Assessment Last Done: 07/31/18 17:52 Vital Signs Last Done: 07/31/18 17:52 Status ED Status: Left Department Discharge Information Discharge Date/Time: 07/31/18 17:50
[2018-07-31 13:17] LABS: Baso # (Auto) 0.2 th/mm3 (0.0-0.2); Baso % (Auto) 1.2 % (0.0-2.0); Eos # (Auto) 0.7 th/mm3 (0.0-0.4); Eos % (Auto) 4.1 % (0.0-4.0); Hematocrit 39.9 % (35.0-46.0); Hemoglobin 12.4 gm/dL (11.6-15.3); Lymph # (Auto) 2.1 th/mm3 (1.0-4.8); Lymph % (Auto) 12.5 % (9.0-44.0); Mean Corpuscular Hemoglobin 24.8 pg (27.0-34.0); Mean Corpuscular Volume 80.2 fL (80.0-100.0); Mean Platelet Volume 9.2 fL (7.0-11.0); Mono # (Auto) 2.6 th/mm3 (0.0-0.9); Mono % (Auto) 15.8 % (0.0-8.0); Neut # (Auto) 11.1 th/mm3 (1.8-7.7); Neut % (Auto) 66.4 % (16.0-70.0); Platelet Count 608 th/mm3 (150-450); Red Blood Count 4.98 mil/mm3 (4.00-5.30); Red Cell Distribution Width 19.7 % (11.6-17.2); White Blood Count 16.7 th/mm3 (4.0-11.0)
[2018-07-31 13:21] LABS: Mean Corpuscular HGB Conc 30.9 % (32.0-36.0)
[2018-07-31 13:44] LABS: Anion Gap 10 meq/L (5-15); Blood Urea Nitrogen 14 mg/dL (7-18); Calcium 8.7 mg/dL (8.5-10.1); Carbon Dioxide 23.3 meq/L (21.0-32.0); Chloride 108 meq/L (98-107); Glomerular Filtration Rate Greater Than 89 mL/min (>89); Glucose,Random 90 mg/dL (74-106); Potassium 3.6 meq/L (3.5-5.1); Sodium 141 meq/L (136-145)
[2018-07-31 14:03] LABS: Lymphocytes 15 % (9-44); Monocytes 10 % (0-8)
[2018-07-31 14:04] LABS: Ovalocytes 1+
[2018-07-31] MEDS ORDERED: Vancomycin Inj 1 GM/200 ML PIGGYBACK IV.SIG SCH (15:00)
--- NOTE | 2018-07-31 15:42 | P.HP ---
History of Present Illness Primary Care Physician: Derek Oviedo MD Chief Complaint: "sores on my butt" History of Present Illness: This is a 77 year old female patient with a past medical history which includes : Hypercoagulable, essential thrombocytosis, myelofibrosis, pancreatitis, splenic infarction, right leg thromboembolic occlusion, Osteoarthritis, HTN, Anemia, Hyperlipidemia, Hypothyroidism, Asthma, ckd, Anxiety/Depression, Fibromyalgia, erosive gastritis and right AKA on 01/24/[address] Forbes. Patient is a poor historian, information gathered from patient, prior computerized charting and talking with outpatient PCP DR. Oviedo. Notes from ER [facility] reports that patient was set to the hospital from wound care clinic Dr. Cardona due to failed outpatient abx therapy for LLE ulcer which had been present for 6 weeks prior to arrival on 07/20/18. Patient was admitted to [facility] from 07/20/18 to 07/23/18 treated for cellulitis of LLE. Patient was treated with Zosyn and Vancomycin. Patient then left [facility] AMA. Patient did see her PCP Dr. Oviedo after DC on 07/25/18. PCP Dr. Oviedo was able to get patient admitted to [facility] with orders for IV Vancomycin and Ancef through 08/03 as well as wound care physician. Patient then left [facility] after four days. Patient reports that she is now home with her . Patient reports that the pressure ulceration on buttock started approximately 2 weeks ago. Patient reports that the buttock ulcers are getting more painful and are now bleeding. Patient denies fevers, chills, N/V/D/C, SOB or chest pain. WBC elevated on admission was 16.7 Past Medical/Surgical History Hypercoagulable essential thrombocytosis myelofibrosis pancreatitis splenic infarction right leg thromboembolic occlusion Osteoarthritis HTN Anemia Hyperlipidemia Hypothyroidism Asthma ckd Anxiety/Depression Fibromyalgia Hx of erosive gastritis Past Surgical History: right AKA on 01/24/[address] Forbes Left total hip arthroplasty with direct anterior exposure Anterior colporrhaphy Hysterectomy Tubal ligation Breast lumpectomy (benign) Family History Mother - Hx of aneurysm, blood clot when she was Father - CAD/NH Brother - Hx of CAD, Ulcerative colitis, Diabetes Sister - Hx of colon cancer Social History no etoh/tob - Diagnosis (1) Cellulitis Review of Systems All other systems reviewed negative except as stated in HPI PMFSH - History History Provided By: Patient - Medical History Medical History: Medical History (Last Updated 07/31/18 @ 12:57 by Christina Thomas) HTN (hypertension) (Acute) Blood clotting disorder (Acute) DVT (deep venous thrombosis) (Acute) Osteoarthritis (Acute) - Surgical History Surgical History: Surgical History (Last Updated 07/31/18 @ 12:57 by Christina Thomas) History of eye surgery (Acute) Amputation of leg (Acute) - Tobacco History Second Hand Smoke Exposure: No Smoking Status: Never smoker - Alcohol History How Often Do You Have a Drink Containing Alcohol: Never - Substance Use History Substance History: No History of Abuse - Travel History Recent Travel in the [place] Within the Last 8 Weeks: No Recent Travel Out of the Country Within the Last 8 Weeks: No - Immunization History Tetanus Immunization: <5 Years Hx Influenza Vaccine This Season: No Medications and Allergies Active Medications: Active Medications Vancomycin/Sodium Chloride (Vancomycin Inj) 1 gm in 200 mls @ 200 mls/hr IV.SIG FILAMENT MAKER FORTINO Allergies Allergy/AdvReac Type Severity Reaction Status Date / Time bacitracin Allergy Severe Swelling Verified 07/31/18 12:54 latex Allergy Intermediate Itching, Verified 07/31/18 12:54 Generalized Home Medications Medication Instructions Recorded Confirmed Type amlodipine 2.5 mg PO DAILY 07/01/18 07/31/18 History levothyroxine 150 mcg PO DAILY 07/01/18 07/31/18 History lorazepam 0.5 mg PO DAILY 07/01/18 07/31/18 History oxycodone 10 mg PO Q4-6H PRN 07/01/18 07/31/18 History rivaroxaban [Xarelto] 10 mg PO DAILY 07/01/18 07/31/18 History ipratropium-albuterol 3 ml INHALATION QID PRN 07/31/18 07/31/18 History Exam Vital signs: Vital Signs 07/31/18 12:45 07/31/18 14:30 Temperature 97.8 F 97.9 F Pulse Rate 79 83 Respiratory Rate 17 15 Blood Pressure 130/61 156/74 H Pulse Oximetry 98 98 Intake & Output 09/16/18 09/17/18 09/17/18 18:59 06:59 18:59 Intake Total 100 / 100 Balance 100 / 100 Weight 68.039 kg Intake: IV 100 / 100 Rocephin Inj 1,000 MG In NS Inj 100 / 100 100 ML @ 200 mls/hr IV.SIG ONCE ONE Rx#:[id number] Narrative: GENERAL: This is a well-nourished, well-developed patient, pressured rapid speech, in no acute distress. Skin 3 large open stage two ulcerations bilateral buttock with surrounding erythema, L anterior foot open ulceration approximately 2 cm x 6 cm with thick white/yellow drainage present CARDIOVASCULAR: Regular rate and rhythm RESPIRATORY: Clear to auscultation. Breath sounds equal bilaterally. GASTROINTESTINAL: Abdomen soft, non-tender, nondistended. Normal active bowel sounds MUSCULOSKELETAL: Extremities without clubbing, cyanosis, or edema. R AKA NEURO: Alert pressured speech, poor/unreliable historian. Results - Labs CBC & Chem 7: 07/31/18 13:00 07/31/18 13:00 Labs: Laboratory Results - last 24 hr 07/31/18 07/31/18 13:00 13:00 WBC 16.7 H RBC 4.98 Hgb 12.4 Hct 39.9 MCV 80.2 MCH 24.8 L MCHC 30.9 L RDW 19.7 H Plt Count 608 H MPV 9.2 Prelim Diff (Auto) Slide review pending Neut % (Auto) 66.4 Lymph % (Auto) 12.5 [place] % (Auto) 15.8 H Eos % (Auto) 4.1 H Baso % (Auto) 1.2 Neut # (Auto) 11.1 H Lymph # (Auto) 2.1 [place]imes # (Auto) 2.6 H Eos # (Auto) 0.7 H Baso # (Auto) 0.2 WBC Differential Manual diff final Seg Neuts % (Manual) 71 H Band Neuts % (Manual) 2 Lymphocytes % (Manual) 15 Monocytes % (Manual) 10 H Basophils % (Manual) 2 Abs Neuts (Manual) 12.2 H Differential Comment . Platelet Estimate High H Platelet Morphology Enlarged H Ovalocytes 1+ H Sodium 141 Potassium 3.6 Chloride 108 H Carbon Dioxide 23.3 Anion Gap 10 BUN 14 Creatinine 0.61 Estimated GFR Greater than 89 Random Glucose 90 Calcium 8.7 Caprini VTE Risk Assessment Caprini VTE Risk Assessment: Moderate/High Risk (score >= 2) Caprini Risk Assessment Model: Point Value = 1 Point Value = 2 Point Value = 3 Point Value = 5 Age 41-60 Minor surgery BMI > 25 kg/m2 Swollen legs Varicose veins or History of unexplained or recurrent spontaneous Oral contraceptives or hormone replacement Sepsis (< 1 month) Serious lung disease, including pneumonia (< 1 month) Abnormal pulmonary function Acute myocardial infarction Congestive heart failure (< 1 month) History of inflammatory bowel disease Medical patient at bed rest Age 61-74 Arthroscopic surgery Major open surgery (> 45 min) Laparoscopic surgery (> 45 min) Malignancy Confined to bed (> 72 hours) Immobilizing plaster cast Central venous access Age >= 75 History of VTE Family history of VTE Factor V Leiden Prothrombin [id number] Lupus anticoagulant Anticardiolipin antibodies Elevated serum homocysteine Heparin-induced thrombocytopenia Other congenital or acquired thrombophilia Stroke (< 1 month) Elective arthroplasty Hip, pelvis, or leg fracture Acute spinal cord injury (< 1 month) Prophylaxis Regimen: Total Risk Factor Score Risk Level Prophylaxis Regimen 0-1 Low Early ambulation 2 Moderate Order ONE of the following: *Sequential Compression Device (SCD) *Heparin 5000 units SQ BID 3-4 Higher Order ONE of the following medications: *Heparin 5000 units SQ TID *Enoxaparin/Lovenox 40 mg SQ daily (WT < 150 kg, CrCl > 30 mL/min) *Enoxaparin/Lovenox 30 mg SQ daily (WT < 150 kg, CrCl > 10-29 mL/min) *Enoxaparin/Lovenox 30 mg SQ BID (WT < 150 kg, CrCl > 30 mL/min) AND/OR *Sequential Compression Device (SCD) 5 or more Highest Order ONE of the following medications: *Heparin 5000 units SQ TID (Preferred with Epidurals) *Enoxaparin/Lovenox 40 mg SQ daily (WT < 150 kg, CrCl > 30 mL/min) *Enoxaparin/Lovenox 30 mg SQ daily (WT < 150 kg, CrCl > 10-29 mL/min) *Enoxaparin/Lovenox 30 mg SQ BID (WT < 150 kg, CrCl > 30 mL/min) AND *Sequential Compression Device (SCD) Assessment and Plan - Assessment (1) Cellulitis Code(s): L03.90 - Cellulitis, unspecified Status: Acute Plan: This is a 77 year old female patient with a past medical history which includes : Hypercoagulable, essential thrombocytosis, myelofibrosis, pancreatitis, splenic infarction, right leg thromboembolic occlusion, Osteoarthritis, HTN, Anemia, Hyperlipidemia, Hypothyroidism, Asthma, ckd, Anxiety/Depression, Fibromyalgia, erosive gastritis and right AKA on 01/24/[address] Forbes. Patient is a poor historian, information gathered from patient, prior computerized charting and talking with outpatient PCP DR. Oviedo. Notes from ER [facility] reports that patient was set to the hospital from wound care clinic Dr. Cardona due to failed outpatient abx therapy for LLE ulcer which had been present for 6 weeks prior to arrival on 07/20/18. Patient was admitted to [facility] from 07/20/18 to 07/23/18 treated for cellulitis of LLE. Patient was treated with Zosyn and Vancomycin. Patient then left [facility] AMA. Patient did see her PCP Dr. Oviedo after DC on 07/25/18. PCP Dr. Oviedo was able to get patient admitted to [facility] with orders for IV Vancomycin and Ancef through 08/03 as well as wound care physician. Patient then left [facility] after four days. Patient reports that she is now home with her . Patient reports that the pressure ulceration on buttock started approximately 2 weeks ago. Patient reports that the buttock ulcers are getting more painful and are now bleeding. Patient denies fevers, chills, N/V/D/C, SOB or chest pain. WBC elevated on admission was 16.7 Cellulitis and open ulcerations buttocks Patient has existing PICC line LUE - remove Vancomycin IV with pharmacy to dose Diflucan PO 100mg PO daily Wound care pressure reduction Ulceration left foot Patient recently admitted to [facility] - treated for cellulitis and failed outpatient therapy patient and at bedside report foot looks much better than it did continue Vancomycin IV Wound care consulted Hypercoagulable ( followed by Dr. Atwood outpatient hematology) with history of splenic infarct, right leg thromboembolic occlusion continue patient's home Xarelto Hypothyroidism Continue home levothyroxine Asthma Duonebs as needed HTN continue home amlodipine 2.5 mg daily DVT prophylaxis continue patient's home Xarelto
[2018-07-31] MEDS ORDERED: Vancomycin Consult Pharmacy OTHER PRN (16:08)
[2018-07-31] MEDS ORDERED: Vancomycin Inj 1,000 MG in Sodium Chlor 0.9% Inj 250 ML IV.SIG SCH (17:00)
[2018-07-31] MEDS ORDERED: Acetaminophen 325 MG Tablet PO PRN (17:00)
[2018-07-31 17:18] LABS: Alanine Aminotransferase 13 U/L (10-53); Albumin 2.8 g/dL (3.4-5.0); Aspartate Aminotransferase 18 U/L (15-37)
[2018-07-31 17:20] LABS: Alkaline Phosphatase 69 U/L (45-117); Total Protein 6.2 g/dL (6.4-8.2)
[2018-07-31] MEDS: Senna/Docusate Sodium 8.6/50 MG Tablet PO SCH (20:12)
[2018-08-01] MEDS: Levothyroxine 150 MCG Tablet PO SCH (05:21)
[2018-08-01 07:07] LABS: Baso # (Auto) 0.4 th/mm3 (0.0-0.2); Baso % (Auto) 2.9 % (0.0-2.0); Eos # (Auto) 1.1 th/mm3 (0.0-0.4); Eos % (Auto) 8.3 % (0.0-4.0); Hematocrit 37.7 % (35.0-46.0); Hemoglobin 11.9 gm/dL (11.6-15.3); Lymph % (Auto) 14.9 % (9.0-44.0); Mean Corpuscular HGB Conc 31.6 % (32.0-36.0); Mean Corpuscular Hemoglobin 25.1 pg (27.0-34.0); Mean Corpuscular Volume 79.3 fL (80.0-100.0); Mean Platelet Volume 9.4 fL (7.0-11.0); Mono % (Auto) 14.2 % (0.0-8.0); Neut # (Auto) 8.2 th/mm3 (1.8-7.7); Neut % (Auto) 59.7 % (16.0-70.0); Platelet Count 671 th/mm3 (150-450); Red Blood Count 4.76 mil/mm3 (4.00-5.30); Red Cell Distribution Width 19.3 % (11.6-17.2); White Blood Count 13.7 th/mm3 (4.0-11.0)
[2018-08-01 07:29] LABS: Albumin 2.4 g/dL (3.4-5.0); Anion Gap 10 meq/L (5-15); Blood Urea Nitrogen 12 mg/dL (7-18); Calcium 8.2 mg/dL (8.5-10.1); Carbon Dioxide 25.1 meq/L (21.0-32.0); Chloride 111 meq/L (98-107); Glucose,Random 72 mg/dL (74-106); Potassium 3.5 meq/L (3.5-5.1); Sodium 146 meq/L (136-145)
[2018-08-01 07:32] LABS: Alanine Aminotransferase 10 U/L (10-53); Alkaline Phosphatase 63 U/L (45-117); Aspartate Aminotransferase 15 U/L (15-37); Glomerular Filtration Rate Greater Than 89 mL/min (>89); Total Protein 5.7 g/dL (6.4-8.2)
[2018-08-01] MEDS ORDERED: Sodium Chloride 0.45 % Inj 1,000 ML IV.CONT SCH (07:45)
--- NOTE | 2018-08-01 08:12 | P.PNIM ---
Subjective Interval history: Follow up: cellulitis L foot and buttocks with open ulcers Patient reports, "blood," oozing from buttock ulcers Physical Exam Vital signs: Vital Signs 07/31/18 12:45 07/31/18 14:30 07/31/18 17:52 Temperature 97.8 F 97.9 F 97.7 F Pulse Rate 79 83 76 Respiratory Rate 17 15 18 Blood Pressure 130/61 156/74 H 124/77 Pulse Oximetry 98 98 99 07/31/18 19:53 07/31/18 23:25 08/01/18 03:51 Temperature 98.4 F 98.4 F Pulse Rate 86 72 70 Respiratory Rate 16 17 16 Blood Pressure 134/63 120/54 L 136/62 Pulse Oximetry 98 97 98 08/01/18 07:57 Temperature 98.0 F Pulse Rate 84 Respiratory Rate 16 Blood Pressure 127/60 Pulse Oximetry 100 Intake & Output 07/31/18 08/01/18 08/01/18 18:59 06:59 18:59 Intake Total 100 / 100 Balance 100 / 100 Weight 68.039 kg 68.039 kg Intake: IV 100 / 100 Rocephin Inj 1,000 MG In NS Inj 100 / 100 100 ML @ 200 mls/hr IV.SIG ONCE ONE Rx#:[id number] Other: # Voids 3 Weight On Admission 68.039 kg Narrative: GENERAL: This is a well-nourished, well-developed patient, pressured rapid speech, in no acute distress. Skin 3 large open stage two ulcerations bilateral buttock with surrounding erythema, L anterior foot open ulceration approximately 2 cm x 6 cm with thick white/yellow drainage present CARDIOVASCULAR: Regular rate and rhythm RESPIRATORY: Clear to auscultation. Breath sounds equal bilaterally. GASTROINTESTINAL: Abdomen soft, non-tender, nondistended. Normal active bowel sounds MUSCULOSKELETAL: Extremities without clubbing, cyanosis, or edema. R AKA NEURO: Alert pressured speech, poor/unreliable historian. Results - Labs CBC & Chem 7: 08/01/18 06:20 08/01/18 06:20 Laboratory Results - last 24 hr 07/31/18 07/31/18 07/31/18 13:00 13:00 13:00 WBC 16.7 H RBC 4.98 Hgb 12.4 Hct 39.9 MCV 80.2 MCH 24.8 L MCHC 30.9 L RDW 19.7 H Plt Count 608 H MPV 9.2 Prelim Diff (Auto) Slide review pending Neut % (Auto) 66.4 Lymph % (Auto) 12.5 [place]ckett % (Auto) 15.8 H Eos % (Auto) 4.1 H Baso % (Auto) 1.2 Neut # (Auto) 11.1 H Lymph # (Auto) 2.1 [place] # (Auto) 2.6 H Eos # (Auto) 0.7 H Baso # (Auto) 0.2 WBC Differential Manual diff final Seg Neuts % (Manual) 71 H Band Neuts % (Manual) 2 Lymphocytes % (Manual) 15 Monocytes % (Manual) 10 H Basophils % (Manual) 2 Abs Neuts (Manual) 12.2 H Differential Comment . Platelet Estimate High H Platelet Morphology Enlarged H Ovalocytes 1+ H Sodium 141 Cancelled Potassium 3.6 Cancelled Chloride 108 H Cancelled Carbon Dioxide 23.3 Cancelled Anion Gap 10 Cancelled BUN 14 Cancelled Creatinine 0.61 Cancelled Estimated GFR Greater than 89 Cancelled Random Glucose 90 Cancelled Calcium 8.7 Cancelled Prot Corrected Calcium Cancelled Total Bilirubin 0.4 Cancelled AST 18 Cancelled ALT 13 Cancelled Alkaline Phosphatase 69 Cancelled Total Protein 6.2 L Cancelled Albumin 2.8 L Cancelled 08/01/18 08/01/18 06:20 06:20 WBC 13.7 H RBC 4.76 Hgb 11.9 Hct 37.7 MCV 79.3 L MCH 25.1 L MCHC 31.6 L RDW 19.3 H Plt Count 671 H MPV 9.4 Prelim Diff (Auto) Slide review pending Neut % (Auto) 59.7 Lymph % (Auto) 14.9 [place] % (Auto) 14.2 H Eos % (Auto) 8.3 H Baso % (Auto) 2.9 H Neut # (Auto) 8.2 H Lymph # (Auto) 2.0 [place] # (Auto) 2.0 H Eos # (Auto) 1.1 H Baso # (Auto) 0.4 H WBC Differential Seg Neuts % (Manual) Band Neuts % (Manual) Lymphocytes % (Manual) Monocytes % (Manual) Basophils % (Manual) Abs Neuts (Manual) Differential Comment . Platelet Estimate Platelet Morphology Ovalocytes Sodium 146 H Potassium 3.5 Chloride 111 H Carbon Dioxide 25.1 Anion Gap 10 BUN 12 Creatinine 0.56 Estimated GFR Greater than 89 Random Glucose 72 L Calcium 8.2 L Prot Corrected Calcium Total Bilirubin 0.3 AST 15 ALT 10 Alkaline Phosphatase 63 Total Protein 5.7 L Albumin 2.4 L Assessment and Plan - Assessment (1) Cellulitis Code(s): L03.90 - Cellulitis, unspecified Status: Acute Plan: This is a 77 year old female patient with a past medical history which includes : Hypercoagulable, essential thrombocytosis, myelofibrosis, pancreatitis, splenic infarction, right leg thromboembolic occlusion, Osteoarthritis, HTN, Anemia, Hyperlipidemia, Hypothyroidism, Asthma, ckd, Anxiety/Depression, Fibromyalgia, erosive gastritis and right AKA on 01/24/[address] Forbes. Patient is a poor historian, information gathered from patient, prior computerized charting and talking with outpatient PCP DR. Oviedo. Notes from ER [facility] reports that patient was set to the hospital from wound care clinic Dr. Cardona due to failed outpatient abx therapy for LLE ulcer which had been present for 6 weeks prior to arrival on 07/20/18. Patient was admitted to [facility] from 07/20/18 to 07/23/18 treated for cellulitis of LLE. Patient was treated with Zosyn and Vancomycin. Patient then left [facility] AMA. Patient did see her PCP Dr. Oviedo after DC on 07/25/18. PCP Dr. Oviedo was able to get patient admitted to [facility] with orders for IV Vancomycin and Ancef through 08/03 as well as wound care physician. Patient then left [facility] after four days. Patient reports that she is now home with her . Patient reports that the pressure ulceration on buttock started approximately 2 weeks ago. Patient reports that the buttock ulcers are getting more painful and are now bleeding. Patient denies fevers, chills, N/V/D/C, SOB or chest pain. WBC elevated on admission was 16.7 Cellulitis and open ulcerations buttocks WBC elevated on admission was 16.7 -> 13.7 (08/01) Patient has existing PICC line LUE - remove Continue Vancomycin IV with pharmacy to dose Continue Diflucan PO 100mg PO daily Wound care consulted pressure reduction Ulceration left foot Patient recently admitted to [facility] - treated for cellulitis and failed outpatient therapy patient and at bedside report foot looks much better than it did continue Vancomycin IV Wound care consulted Hypercoagulable ( followed by Dr. Atwood outpatient hematology) with history of splenic infarct, right leg thromboembolic occlusion continue patient's home Xarelto Hypothyroidism Continue home levothyroxine Asthma Duonebs as needed HTN continue home amlodipine 2.5 mg daily DVT prophylaxis continue patient's home Xarelto (1) Cellulitis Qualifiers: Site of cellulitis: buttock Qualified Code(s): L03.317 - Cellulitis of buttock
[2018-08-01] MEDS: amLODIPine 5 MG Tablet PO SCH (10:05)
[2018-08-01] MEDS: Senna/Docusate Sodium 8.6/50 MG Tablet PO SCH ×2 (10:07→21:14)
[2018-08-01] MEDS: Fluconazole 100 MG Tablet PO SCH (10:09)
[2018-08-01] MEDS: Rivaroxaban 10 MG Tablet PO SCH (10:09)
--- NOTE | 2018-08-01 17:12 | P.PNWCN ---
Wound Care Nurse Consult Description: wound consult ordered by Leo AYALA for wound management. Communicated with: Ashlie RN, Leo AYALA Recommendation: 1. Manually reposition patient every 2 hours for comfort and offloading to left and right side. 2. Pleas control moisture by use of Purewic female cath and UltraSorb moisture wicking underpads. 3. Cleanse intra gluteal cleft bilateral ischium and vagina skin folds with remedy soft cloth barrier wipes or normal saline.Pat dry 4. Apply Silvadene/Lidocaine 4% , 50/50 mix to open wound base and periwound cover with Maxorb ll cut to fit wound bases secure with ABD /paper tape. 5. Change dressing daily or as needed for dislodgement/exudate management. 6. Apply thin even layer of remedy antifungal powder to pannus/groin skin folds. 7. Follow up with out patient wound center. Additional information: Patient was seen today by financial writer , Ashlie MANE and [employer] nursing students.Patient alert and oriented x4 ,easily distracted and hard to keep focused on questions.Patient states she is incontinent of bladder and usually wears a brief or pad.Patient currently laying on cotton under pad with 2 UltraSorb underpads.Patient was repositioned to right side with 2 person minimum assistance UltraSorb underpad noted to be very soiled with urine and serous exudate.Intra gluteal cleft,vaginal area and surrounding tissue cleansed with normal saline and remedy soft cloth wipes.Patient noted to have diffuse moisture /friction /possible mechanical (brief) partial thickness wounds to bilateral gluteus ,inner thighs , right ischium .Wounds are red non granular tissue wound edges are well defined irregular in shape ,Maceration noted to all periwound/ intra gluteal cleft. Small amount of sanguinous exudate noted with out odor.patient very tender to touch unable to recall how she acquired wounds or when.Diffuse Satalite lesions noted to buttock/thigh regions.Pannus and groin skin folds noted to have erythema with Satalite lesion indicating fungal rash.Remedy anti fungal powder applied to skin folds and intra gluteal cleft open wounds covered with Maxorb ll nicolle to fit and Calazime cream applied to periwound to help aide in moisture control.Patient tolerated wound care with some difficulty noted. Wound/Pressure Injury - Wound Buttocks Wound Assessment: Admission Wound Type: Traumatic Wound Is This a Chronic Wound: Yes Requested from Provider a Wound Care Consult: No (Romero MANE,[facility] seen 08/01) Length: 11 Width: 12 Wound Bed Appearance: Red, Shiny Surrounding Tissue Appearance: Bright Red, Erythema Surrounding Tissue Temperature: Warm Drainage Description: Sanguinous Drainage Amount: Moderate Drainage Odor: No Odor Dressing Status: Changed Topical: Medicated Ointment Wound Packing Type: Alginate Primary Dressing: Absorbant Pad Tape Type: Silk Sacrum Wound Assessment: Admission Wound Type: Pressure Injury Is This a Chronic Wound: Yes Requested from Provider a Wound Care Consult: Yes Length: 11 Width: 12 Wound Bed Appearance: Blisters - Intact, Red Surrounding Tissue Appearance: Bright Red, Edematous, Erythema Surrounding Tissue Temperature: Warm Drainage Description: Sanguinous Drainage Amount: Moderate Drainage Odor: Slight Odor Dressing Status: Reinforced Topical: Medicated Ointment Wound Packing Type: Gauze Pads Primary Dressing: Adhesive Dressing Tape Type: Silk Lower Buttocks Wound Type: Pressure Injury Left Anterior Foot Wound Assessment: Admission Wound Type: Pressure Injury Is This a Chronic Wound: Yes Requested from Provider a Wound Care Consult: Yes Length: 3 Width: 2 Wound Bed Appearance: Willow, Red Surrounding Tissue Appearance: Edematous, Erythema, Willow Surrounding Tissue Temperature: Warm Drainage Description: Yellow Drainage Amount: Scant Drainage Odor: Foul Odor Dressing Status: Reinforced Topical: Medicated Ointment Primary Dressing: Adhesive Dressing Right Elbow Wound Assessment: Admission Wound Type: Pressure Injury Is This a Chronic Wound: No Right Lower Buttocks Wound Assessment: Admission Wound Type: Pressure Injury Is This a Chronic Wound: Yes Requested from Provider a Wound Care Consult: Yes Length: 6 Width: 3 Wound Bed Appearance: Blisters - Intact, Willow, Red Surrounding Tissue Appearance: Bright Red, Erythema, Willow Surrounding Tissue Temperature: Warm Drainage Description: Sanguinous Drainage Amount: Minimal Drainage Odor: No Odor Dressing Status: Reinforced Topical: Medicated Ointment Primary Dressing: Adhesive Dressing Tape Type: Silk Left Lower Buttocks Wound Assessment: Admission Wound Type: Pressure Injury Is This a Chronic Wound: Yes Requested from Provider a Wound Care Consult: Yes Length: 6 Width: 10 Wound Bed Appearance: Willow, Red Surrounding Tissue Appearance: Bright Red, Willow Surrounding Tissue Temperature: Warm Drainage Description: Sanguinous Drainage Amount: Minimal Drainage Odor: No Odor Dressing Status: Reinforced Topical: Medicated Ointment Wound Packing Type: Gauze Pads Primary Dressing: Absorbant Pad Tape Type: Silk
[2018-08-01] MEDS: Vancomycin Inj 1,000 MG in Sodium Chlor 0.9% Inj 250 ML IV.SIG SCH (19:14)
[2018-08-01] MEDS: Nystatin 100,000 UNITS/GM Powder 15 GM Bottle TOPICAL SCH ×2 (20:43→21:14)
[2018-08-02] MEDS: Vancomycin Inj 1,000 MG in Sodium Chlor 0.9% Inj 250 ML IV.SIG SCH ×2 (02:10→14:41)
[2018-08-02] MEDS: Levothyroxine 150 MCG Tablet PO SCH (05:17)
[2018-08-02 06:08] LABS: Glomerular Filtration Rate Greater Than 89 mL/min (>89)
--- NOTE | 2018-08-02 08:01 | P.PNIM ---
Subjective Interval history: Pt complains of burning and itching in her buttock area Nurse reports that the pt was cleaned up three times last night. Pt states that [place] does not typically work for her for pain control and requests a change to Percocet Physical Exam Vital signs: Vital Signs 08/01/18 07:57 08/01/18 11:42 08/01/18 15:48 Temperature 98.0 F 98.1 F 98.0 F Pulse Rate 84 79 76 Respiratory Rate 16 20 20 Blood Pressure 127/60 124/59 L 116/58 L Pulse Oximetry 100 98 96 08/01/18 20:00 08/02/18 00:00 08/02/18 04:00 Temperature 98.3 F 98.4 F 98.6 F Pulse Rate 82 81 76 Respiratory Rate 19 16 16 Blood Pressure 107/51 L 116/70 113/62 Pulse Oximetry 96 95 95 Intake & Output 08/01/18 08/02/18 08/02/18 18:59 06:59 18:59 Intake Total 1500 / 1500 Balance 1500 / 1500 Intake: IV 1500 / 1500 1/2 Normal Saline Inj 1,000 ML 1000 / 1000 @ 84 mls/hr IV.CONT .[id number] [facility] Rx#:[id number] Vancomycin Inj 1,000 MG In NS 500 / 500 Inj 250 ML @ 250 mls/hr IV.SIG Q12H [facility] Rx#:[id number] Other: # Voids 4 Narrative: GENERAL: This is a well-nourished, well-developed patient, pressured rapid speech, in no acute distress. SKIN: 3 large open stage two ulcerations bilateral buttock with surrounding erythema, L anterior foot open ulceration approximately 2 cm x 6 cm with thick white/yellow drainage present CARDIO: Regular RESP: CTA bilaterally. ABD: +BS, soft, non-tender, nondistended. EXT: R AKA NEURO: Alert, pressured speech, poor/unreliable historian. Results - Labs CBC & Chem 7: 08/01/18 06:20 08/02/18 05:28 Laboratory Results - last 24 hr 08/01/18 08/02/18 06:20 05:28 WBC Differential . Diff Scan Auto diff confirmed Creatinine 0.56 Estimated GFR Greater than 89 Assessment and Plan - Assessment (1) Cellulitis Code(s): L03.90 - Cellulitis, unspecified Status: Acute Plan: This is a 77 year old female patient with a past medical history which includes : Hypercoagulable, essential thrombocytosis, myelofibrosis, pancreatitis, splenic infarction, right leg thromboembolic occlusion, Osteoarthritis, HTN, Anemia, Hyperlipidemia, Hypothyroidism, Asthma, ckd, Anxiety/Depression, Fibromyalgia, erosive gastritis and right AKA on 01/24/[address] Forbes. Patient is a poor historian, information gathered from patient, prior computerized charting and talking with outpatient PCP DR. Oviedo. Notes from ER [facility] reports that patient was set to the hospital from wound care clinic Dr. Cardona due to failed outpatient abx therapy for LLE ulcer which had been present for 6 weeks prior to arrival on 07/20/18. Patient was admitted to [facility] from 07/20/18 to 07/23/18 treated for cellulitis of LLE. Patient was treated with Zosyn and Vancomycin. Patient then left [facility] AMA. Patient did see her PCP Dr. Oviedo after DC on 07/25/18. PCP Dr. Oviedo was able to get patient admitted to [facility] with orders for IV Vancomycin and Ancef through 08/03 as well as wound care physician. Patient then left [facility] after four days. Patient reports that she is now home with her . Patient reports that the pressure ulceration on buttock started approximately 2 weeks ago. Patient reports that the buttock ulcers are getting more painful and are now bleeding. Patient denies fevers, chills, N/V/D/C, SOB or chest pain. WBC elevated on admission was 16.7 Cellulitis and open ulcerations buttocks - Pt had a noted WBC elevated on admission was 16.7 -> 13.7 (08/01) - At admission the pt had an existing PICC line LUE which was removed - Continue Vancomycin IV with pharmacy to dose - Continue Diflucan PO 100mg PO daily - Appreciate Wound care consultation, recommendation: 1. Manually reposition patient every 2 hours for comfort and offloading 2. Please control moisture by use of Purewic female cath and UltraSorb moisture wicking underpads. 3.Cleanse intra gluteal cleft bilateral ischium and vagina skin folds with remedy soft cloth barrier wipes or normal saline.Pat dry 4. Apply Silvadene/Lidocaine 4% , 50/50 mix to open wound base and periwound cover with Maxorb ll cut to fit wound bases secure with ABD /paper tape. 5. Change dressing daily or as needed for dislodgement/exudate management. 6. Follow up with out patient wound center. Ulceration left foot - Patient recently admitted to [facility] - treated for cellulitis and failed outpatient therapy - Continue Vancomycin IV - Follow wound care recommendations Hypercoagulable (followed by Dr. Atwood outpatient hematology) - Pt with history of splenic infarct, right leg thromboembolic occlusion - Continue patient's home Xarelto Hypothyroidism - Continue home levothyroxine Asthma - Duonebs as needed HTN - Continue home amlodipine 2.5 mg daily DVT prophylaxis with Xarelto The exam, history, and the medical decision-making described in the above note were completed with the assistance of the mid-level provider. I reviewed and agree with the findings presented. I attest that I had a [id number] encounter with the patient on the same day, and personally performed and documented my assessment and findings in the medical record. buttock cellulitis and severe skin breakdown bilaterally. gnr on cx so far cont wound care. broaden abx and f/u cx. left foot ulceration/cellulitis. (1) Cellulitis Qualifiers: Site of cellulitis: buttock Qualified Code(s): L03.317 - Cellulitis of buttock
[2018-08-02] MEDS: amLODIPine 5 MG Tablet PO SCH (08:21)
[2018-08-02] MEDS: Senna/Docusate Sodium 8.6/50 MG Tablet PO SCH ×2 (08:21→20:13)
[2018-08-02] MEDS: Fluconazole 100 MG Tablet PO SCH (08:21)
[2018-08-02] MEDS: Rivaroxaban 10 MG Tablet PO SCH (08:22)
[2018-08-02] MEDS: Silver Sulfadiazine 1% Ceam 400 GM Jar TOPICAL SCH (08:23)
[2018-08-02] MEDS: Nystatin 100,000 UNITS/GM Powder 15 GM Bottle TOPICAL SCH ×4 (08:26→20:13)
[2018-08-02] MEDS: oxyCODONE/Acetaminophen 10/325 Tablet PO PRN ×4 (10:46→23:33)
[2018-08-02] MEDS ORDERED: Pharmacy Ordered Lab Info OTHER ONE (14:45)
[2018-08-02 15:11] LABS: Vancomycin,Trough 17.2 mcg/mL (5.0-10.0)
[2018-08-02] MEDS: Piperacil/Tazo 3.375 GM Premix 50 ML IV.SIG SCH ×2 (16:39→23:33)
[2018-08-02] MEDS: LORazepam 0.5 MG Tablet PO PRN (20:11)
[2018-08-03] MEDS: Vancomycin Inj 750 MG in Sodium Chlor 0.9% Inj 250 ML IV.SIG SCH ×2 (03:47→15:11)
[2018-08-03] MEDS: Piperacil/Tazo 3.375 GM Premix 50 ML IV.SIG SCH ×2 (03:47→10:26)
[2018-08-03] MEDS: Levothyroxine 150 MCG Tablet PO SCH (05:07)
[2018-08-03 07:08] LABS: Baso # (Auto) 0.1 th/mm3 (0.0-0.2); Baso % (Auto) 0.4 % (0.0-2.0); Eos # (Auto) 1.4 th/mm3 (0.0-0.4); Eos % (Auto) 8.7 % (0.0-4.0); Hematocrit 38.1 % (35.0-46.0); Lymph # (Auto) 2.7 th/mm3 (1.0-4.8); Lymph % (Auto) 16.8 % (9.0-44.0); Mean Corpuscular HGB Conc 31.6 % (32.0-36.0); Mean Corpuscular Hemoglobin 24.9 pg (27.0-34.0); Mean Corpuscular Volume 78.8 fL (80.0-100.0); Mono # (Auto) 2.1 th/mm3 (0.0-0.9); Mono % (Auto) 13.1 % (0.0-8.0); Neut # (Auto) 9.9 th/mm3 (1.8-7.7); Platelet Count 776 th/mm3 (150-450); Red Blood Count 4.84 mil/mm3 (4.00-5.30); Red Cell Distribution Width 19.6 % (11.6-17.2); White Blood Count 16.2 th/mm3 (4.0-11.0)
[2018-08-03 07:19] LABS: Calcium 8.3 mg/dL (8.5-10.1); Carbon Dioxide 25.7 meq/L (21.0-32.0); Potassium 3.6 meq/L (3.5-5.1)
[2018-08-03] MEDS: oxyCODONE/Acetaminophen 10/325 Tablet PO PRN ×3 (08:37→20:49)
[2018-08-03] MEDS: Fluconazole 100 MG Tablet PO SCH (08:38)
[2018-08-03] MEDS: Rivaroxaban 10 MG Tablet PO SCH (08:38)
[2018-08-03] MEDS: amLODIPine 5 MG Tablet PO SCH (08:38)
[2018-08-03] MEDS: Nystatin 100,000 UNITS/GM Powder 15 GM Bottle TOPICAL SCH ×4 (08:39→20:49)
[2018-08-03] MEDS: Senna/Docusate Sodium 8.6/50 MG Tablet PO SCH ×2 (08:40→20:49)
[2018-08-03] MEDS: Silver Sulfadiazine 1% Ceam 400 GM Jar TOPICAL SCH (08:40)
--- NOTE | 2018-08-03 09:10 | P.PNIM ---
Subjective Interval history: no new complaints Physical Exam Vital signs: Vital Signs 08/02/18 16:31 08/02/18 19:54 08/03/18 00:00 Temperature 98.5 F 98 F 97.9 F Pulse Rate 70 74 70 Respiratory Rate 16 17 Blood Pressure 100/49 L 106/53 L 109/52 L Pulse Oximetry 98 98 99 08/03/18 04:00 08/03/18 08:11 Temperature 97.8 F 97.4 F L Pulse Rate 64 60 Respiratory Rate 17 18 Blood Pressure 116/62 121/60 Pulse Oximetry 97 99 Intake & Output 08/02/18 08/03/18 08/03/18 18:59 06:59 18:59 Intake Total 300 / 300 597.5 / 597.5 Output Total 700 / 700 Balance 300 / 300 -102.5 / -102.5 Weight 64 kg 65.7 kg Intake: IV 300 / 300 357.5 / 357.5 Zosyn 3.375 GM Premix 50 ML @ 50 / 50 100 / 100 100 mls/hr IV.SIG Q6H [facility] Rx#: [id number] Vancomycin Inj 1,000 MG In NS 250 / 250 Inj 250 ML @ 250 mls/hr IV.SIG Q12H [facility] Rx#:[id number] Vancomycin Inj 750 MG In NS Inj 257.5 / 257.5 250 ML @ 250 mls/hr IV.SIG Q12H [facility] Rx#:[id number] Oral 240 / 240 Output: Urine 700 / 700 Other: Date of Last Bowel Movement 07/31/18 08/01/18 # Bowel Movements 0 heart reg lung cta abd s/nt ext left dorsal foot superficial ulceration. surrounding erythema/swelling much improved bilateral buttock denuded/excoriated skin. no pus drainage. mild oozing of blood diffusely over wounds right aka. Results - Labs CBC & Chem 7: 08/03/18 05:33 08/03/18 05:33 Laboratory Results - last 24 hr 08/02/18 08/03/18 08/03/18 14:30 05:33 05:33 WBC 16.2 H RBC 4.84 Hgb 12.0 Hct 38.1 MCV 78.8 L MCH 24.9 L MCHC 31.6 L RDW 19.6 H Plt Count 776 H MPV 10.0 Neut % (Auto) 61.0 Lymph % (Auto) 16.8 [place] % (Auto) 13.1 H Eos % (Auto) 8.7 H Baso % (Auto) 0.4 Neut # (Auto) 9.9 H Lymph # (Auto) 2.7 [place] # (Auto) 2.1 H Eos # (Auto) 1.4 H Baso # (Auto) 0.1 WBC Differential . Differential Comment Auto diff final Sodium 146 H Potassium 3.6 Chloride 110 H Carbon Dioxide 25.7 Anion Gap 10 BUN 9 9 Creatinine 0.74 Estimated GFR 76 L Random Glucose 74 Calcium 8.3 L Vancomycin Trough 17.2 H Microbiology 08/01/18 Unknown Wound - Buttock Gram Stain - Final 08/01/18 Unknown Wound - Buttock Wound Culture - Preliminary gram negative rods Assessment and Plan - Assessment (1) Cellulitis Code(s): L03.90 - Cellulitis, unspecified Status: Acute Plan: This is a 77 year old female patient with a past medical history which includes : Hypercoagulable, essential thrombocytosis, myelofibrosis, pancreatitis, splenic infarction, right leg thromboembolic occlusion, Osteoarthritis, HTN, Anemia, Hyperlipidemia, Hypothyroidism, Asthma, ckd, Anxiety/Depression, Fibromyalgia, erosive gastritis and right AKA on 01/24/[address] Forbes. Patient is a poor historian, information gathered from patient, prior computerized charting and talking with outpatient PCP DR. Oviedo. Notes from ER [facility] reports that patient was set to the hospital from wound care clinic Dr. Cardona due to failed outpatient abx therapy for LLE ulcer which had been present for 6 weeks prior to arrival on 07/20/18. Patient was admitted to [facility] from 07/20/18 to 07/23/18 treated for cellulitis of LLE. Patient was treated with Zosyn and Vancomycin. Patient then left [facility] AMA. Patient did see her PCP Dr. Oviedo after DC on 07/25/18. PCP Dr. Oviedo was able to get patient admitted to [facility] with orders for IV Vancomycin and Ancef through 08/03 as well as wound care physician. Patient then left [facility] after four days. Patient reports that she is now home with her . Patient reports that the pressure ulceration on buttock started approximately 2 weeks ago. Patient reports that the buttock ulcers are getting more painful and are now bleeding. Patient denies fevers, chills, N/V/D/C, SOB or chest pain. WBC elevated on admission was 16.7 Cellulitis and open ulcerations buttocks - Pt had a noted WBC elevated on admission was 16.7 -> 13.7 (08/01) - At admission the pt had an existing PICC line LUE which was removed - Continue Vancomycin IV with pharmacy to dose and zosyn - Continue Diflucan PO 100mg PO daily - Appreciate Wound care consultation, recommendation: 1. Manually reposition patient every 2 hours for comfort and offloading 2. Please control moisture by use of Purewic female cath and UltraSorb moisture wicking underpads. 3.Cleanse intra gluteal cleft bilateral ischium and vagina skin folds with remedy soft cloth barrier wipes or normal saline.Pat dry 4. Apply Silvadene/Lidocaine 4% , 50/50 mix to open wound base and periwound cover with Maxorb ll cut to fit wound bases secure with ABD /paper tape. 5. Change dressing daily or as needed for dislodgement/exudate management. 6. Follow up with out patient wound center. wound cx of buttock growing gnr. cont current abx Ulceration left foot - Patient recently admitted to [facility] - treated for cellulitis and failed outpatient therapy - Continue Vancomycin IV - Follow wound care recommendations Hypercoagulable (followed by Dr. Atwood outpatient hematology) - Pt with history of splenic infarct, right leg thromboembolic occlusion - Continue patient's home Xarelto Hypothyroidism - Continue home levothyroxine Asthma - Duonebs as needed HTN - Continue home amlodipine 2.5 mg daily DVT prophylaxis with Xarelto (1) Cellulitis Qualifiers: Site of cellulitis: buttock Qualified Code(s): L03.317 - Cellulitis of buttock
[2018-08-03] MEDS ORDERED: Levofloxacin 500 mg Premix Inj 500 MG/100 ML PIGGYBACK IV.SIG ONE (16:00)
[2018-08-04] MEDS: oxyCODONE/Acetaminophen 10/325 Tablet PO PRN ×2 (04:56→20:59)
[2018-08-04] MEDS: Levothyroxine 150 MCG Tablet PO SCH (05:25)
[2018-08-04 07:40] LABS: Baso # (Auto) 0.2 th/mm3 (0.0-0.2); Baso % (Auto) 1.4 % (0.0-2.0); Eos # (Auto) 1.6 th/mm3 (0.0-0.4); Eos % (Auto) 10.3 % (0.0-4.0); Hematocrit 38.4 % (35.0-46.0); Hemoglobin 11.9 gm/dL (11.6-15.3); Lymph % (Auto) 12.8 % (9.0-44.0); Mean Corpuscular HGB Conc 31.1 % (32.0-36.0); Mean Corpuscular Hemoglobin 24.4 pg (27.0-34.0); Mean Corpuscular Volume 78.6 fL (80.0-100.0); Mono # (Auto) 1.8 th/mm3 (0.0-0.9); Mono % (Auto) 11.1 % (0.0-8.0); Neut # (Auto) 10.2 th/mm3 (1.8-7.7); Neut % (Auto) 64.4 % (16.0-70.0); Platelet Count 759 th/mm3 (150-450); Red Blood Count 4.89 mil/mm3 (4.00-5.30); Red Cell Distribution Width 19.5 % (11.6-17.2); White Blood Count 15.9 th/mm3 (4.0-11.0)
[2018-08-04] MEDS: amLODIPine 5 MG Tablet PO SCH (08:42)
[2018-08-04] MEDS: Rivaroxaban 10 MG Tablet PO SCH (08:42)
[2018-08-04] MEDS: Nystatin 100,000 UNITS/GM Powder 15 GM Bottle TOPICAL SCH ×4 (08:43→20:15)
[2018-08-04] MEDS: Fluconazole 100 MG Tablet PO SCH (08:43)
[2018-08-04] MEDS: Silver Sulfadiazine 1% Ceam 400 GM Jar TOPICAL SCH (08:44)
[2018-08-04] MEDS: Senna/Docusate Sodium 8.6/50 MG Tablet PO SCH ×2 (08:44→20:15)
--- NOTE | 2018-08-04 08:55 | P.PNIM ---
Subjective Interval history: pt comfortable Physical Exam Vital signs: Vital Signs 08/03/18 12:34 08/03/18 16:00 08/03/18 21:13 Temperature 98.1 F 98.0 F 98.1 F Pulse Rate 65 71 72 Respiratory Rate 18 18 Blood Pressure 110/60 126/60 122/60 Pulse Oximetry 100 96 99 08/04/18 00:00 08/04/18 04:00 08/04/18 07:16 Temperature 97.9 F 97.8 F 97.9 F Pulse Rate 79 60 69 Respiratory Rate 18 18 Blood Pressure 134/65 138/64 131/57 L Pulse Oximetry 99 96 99 Intake & Output 08/03/18 08/04/18 08/04/18 18:59 06:59 18:59 Intake Total 887.5 / 887.5 480 / 480 Output Total 800 / 800 1999 / 1999 Balance 87.5 / 87.5 -1520 / -1520 Intake: IV 407.5 / 407.5 Levaquin 500 mg Premix Inj 500 100 / 100 mg In 100 ml @ 100 mls/hr IV. SIG ONCE ONE Rx#:[id number] Zosyn 3.375 GM Premix 50 ML @ 50 / 50 100 mls/hr IV.SIG Q6H [facility] Rx#: [id number] Vancomycin Inj 750 MG In NS Inj 257.5 / 257.5 250 ML @ 250 mls/hr IV.SIG Q12H [facility] Rx#:[id number] Oral 480 / 480 480 / 480 Output: Urine 800 / 800 1999 / 1999 Other: # Voids 2 Date of Last Bowel Movement 08/01/18 08/01/18 08/01/18 # Bowel Movements 0 nad lying in bed heart reg lung cta abd s/nt buttock and left foot bandaged Results - Labs CBC & Chem 7: 08/04/18 07:00 08/04/18 07:00 Laboratory Results - last 24 hr 08/04/18 08/04/18 07:00 07:00 WBC 15.9 H RBC 4.89 Hgb 11.9 Hct 38.4 MCV 78.6 L MCH 24.4 L MCHC 31.1 L RDW 19.5 H Plt Count 759 H MPV 10.0 Neut % (Auto) 64.4 Lymph % (Auto) 12.8 [place] % (Auto) 11.1 H Eos % (Auto) 10.3 H Baso % (Auto) 1.4 Neut # (Auto) 10.2 H Lymph # (Auto) 2.0 [place] # (Auto) 1.8 H Eos # (Auto) 1.6 H Baso # (Auto) 0.2 WBC Differential . Differential Comment Auto diff final BUN 9 Microbiology 08/01/18 Unknown Wound - Buttock Gram Stain - Final 08/01/18 Unknown Wound - Buttock Wound Culture - Final Morganella morganii Assessment and Plan - Assessment (1) Cellulitis Code(s): L03.90 - Cellulitis, unspecified Status: Acute Plan: This is a 77 year old female patient with a past medical history which includes : Hypercoagulable, essential thrombocytosis, myelofibrosis, pancreatitis, splenic infarction, right leg thromboembolic occlusion, Osteoarthritis, HTN, Anemia, Hyperlipidemia, Hypothyroidism, Asthma, ckd, Anxiety/Depression, Fibromyalgia, erosive gastritis and right AKA on 01/24/[address] Forbes. Patient is a poor historian, information gathered from patient, prior computerized charting and talking with outpatient PCP DR. Oviedo. Notes from ER [facility] reports that patient was set to the hospital from wound care clinic Dr. Cardona due to failed outpatient abx therapy for LLE ulcer which had been present for 6 weeks prior to arrival on 07/20/18. Patient was admitted to [facility] from 07/20/18 to 07/23/18 treated for cellulitis of LLE. Patient was treated with Zosyn and Vancomycin. Patient then left [facility] AMA. Patient did see her PCP Dr. Oviedo after DC on 07/25/18. PCP Dr. Oviedo was able to get patient admitted to [facility] with orders for IV Vancomycin and Ancef through 08/03 as well as wound care physician. Patient then left [facility] after four days. Patient reports that she is now home with her . Patient reports that the pressure ulceration on buttock started approximately 2 weeks ago. Patient reports that the buttock ulcers are getting more painful and are now bleeding. Patient denies fevers, chills, N/V/D/C, SOB or chest pain. WBC elevated on admission was 16.7 Cellulitis and open ulcerations buttocks - Pt had a noted WBC elevated on admission was 16.7 -> 13.7 (08/01) - At admission the pt had an existing PICC line LUE which was removed - Continue Vancomycin IV with pharmacy to dose and zosyn - Continue Diflucan PO 100mg PO daily - Appreciate Wound care consultation, recommendation: 1. Manually reposition patient every 2 hours for comfort and offloading 2. Please control moisture by use of Purewic female cath and UltraSorb moisture wicking underpads. 3.Cleanse intra gluteal cleft bilateral ischium and vagina skin folds with remedy soft cloth barrier wipes or normal saline.Pat dry 4. Apply Silvadene/Lidocaine 4% , 50/50 mix to open wound base and periwound cover with Maxorb ll cut to fit wound bases secure with ABD /paper tape. 5. Change dressing daily or as needed for dislodgement/exudate management. 6. Follow up with out patient wound center. wound cx of buttock growing gnr morganella morganii. abx adjusted cont wound care Ulceration left foot - Patient recently admitted to [facility] - treated for cellulitis and failed outpatient therapy - Continue Vancomycin IV - Follow wound care recommendations Hypercoagulable (followed by Dr. Atwood outpatient hematology) - Pt with history of splenic infarct, right leg thromboembolic occlusion - Continue patient's home Xarelto Hypothyroidism - Continue home levothyroxine Asthma - Duonebs as needed HTN - Continue home amlodipine 2.5 mg daily DVT prophylaxis with Xarelto (1) Cellulitis Qualifiers: Site of cellulitis: buttock Qualified Code(s): L03.317 - Cellulitis of buttock
[2018-08-04] MEDS: LORazepam 0.5 MG Tablet PO PRN ×2 (10:56→20:02)
[2018-08-04] MEDS ORDERED: Pharmacy Ordered Lab Info OTHER ONE (14:45)
[2018-08-04] MEDS: Levofloxacin 500 mg Premix Inj 500 MG/100 ML PIGGYBACK IV.SIG SCH (16:20)
[2018-08-05] MEDS: oxyCODONE/Acetaminophen 10/325 Tablet PO PRN ×3 (02:40→21:34)
[2018-08-05] MEDS: LORazepam 0.5 MG Tablet PO PRN (04:15)
[2018-08-05] MEDS: Levothyroxine 150 MCG Tablet PO SCH (05:05)
[2018-08-05 05:15] LABS: Baso # (Auto) 0.3 th/mm3 (0.0-0.2); Baso % (Auto) 1.9 % (0.0-2.0); Eos # (Auto) 1.6 th/mm3 (0.0-0.4); Eos % (Auto) 9.5 % (0.0-4.0); Hematocrit 37.3 % (35.0-46.0); Lymph # (Auto) 2.5 th/mm3 (1.0-4.8); Lymph % (Auto) 14.3 % (9.0-44.0); Mean Corpuscular HGB Conc 32.1 % (32.0-36.0); Mean Corpuscular Volume 77.9 fL (80.0-100.0); Mean Platelet Volume 9.5 fL (7.0-11.0); Mono # (Auto) 1.8 th/mm3 (0.0-0.9); Mono % (Auto) 10.2 % (0.0-8.0); Neut # (Auto) 11.1 th/mm3 (1.8-7.7); Neut % (Auto) 64.1 % (16.0-70.0); Platelet Count 870 th/mm3 (150-450); Red Blood Count 4.79 mil/mm3 (4.00-5.30); Red Cell Distribution Width 19.4 % (11.6-17.2); White Blood Count 17.3 th/mm3 (4.0-11.0)
[2018-08-05] MEDS ORDERED: Vancomycin Consult Pharmacy OTHER PRN (07:18)
[2018-08-05] MEDS: Nystatin 100,000 UNITS/GM Powder 15 GM Bottle TOPICAL SCH ×4 (09:15→20:56)
[2018-08-05] MEDS: Silver Sulfadiazine 1% Ceam 400 GM Jar TOPICAL SCH (09:15)
[2018-08-05] MEDS: Senna/Docusate Sodium 8.6/50 MG Tablet PO SCH ×2 (09:16→20:55)
[2018-08-05] MEDS: Rivaroxaban 10 MG Tablet PO SCH (09:17)
[2018-08-05] MEDS: Fluconazole 100 MG Tablet PO SCH (09:17)
[2018-08-05] MEDS: amLODIPine 5 MG Tablet PO SCH (09:18)
--- NOTE | 2018-08-05 10:48 | P.PNIM ---
Subjective Interval history: sleeping comfortably when I arrived spoke to RN. dressing changed at 3am Physical Exam Vital signs: Vital Signs 08/04/18 11:35 08/04/18 12:00 08/04/18 16:00 Temperature 98.1 F 98.1 F 97.8 F Pulse Rate 70 70 70 Respiratory Rate 18 21 Blood Pressure 116/54 L 116/54 L 130/65 Pulse Oximetry 98 99 99 08/04/18 20:00 08/05/18 04:00 08/05/18 08:00 Temperature 98 F 97.3 F L 97.9 F Pulse Rate 83 65 70 Respiratory Rate 18 18 Blood Pressure 151/67 H 128/64 131/61 Pulse Oximetry 96 98 97 Intake & Output 08/04/18 08/05/18 08/05/18 18:59 06:59 18:59 Intake Total 1060 / 1060 240 / 240 Output Total 900 / 900 800 / 800 Balance 160 / 160 -560 / -560 Weight 66.7 kg Intake: IV 100 / 100 Levaquin 500 mg Premix Inj 500 100 / 100 mg In 100 ml @ 100 mls/hr IV. SIG Q24H [facility] Rx#:[id number] Oral 960 / 960 240 / 240 Output: Urine 900 / 900 800 / 800 Urine/Stool Mix 0 / 0 Other: Date of Last Bowel Movement 08/01/18 08/01/18 heart reg lung cta abd s/nt ext right aka left dorsal superficial ulceration foot buttock diffusely excoriated Results - Labs CBC & Chem 7: 08/05/18 03:50 08/05/18 03:50 Laboratory Results - last 24 hr 08/05/18 08/05/18 03:50 03:50 WBC 17.3 H RBC 4.79 Hgb 12.0 Hct 37.3 MCV 77.9 L MCH 25.0 L MCHC 32.1 RDW 19.4 H Plt Count 870 H MPV 9.5 Neut % (Auto) 64.1 Lymph % (Auto) 14.3 [place] % (Auto) 10.2 H Eos % (Auto) 9.5 H Baso % (Auto) 1.9 Neut # (Auto) 11.1 H Lymph # (Auto) 2.5 [place] # (Auto) 1.8 H Eos # (Auto) 1.6 H Baso # (Auto) 0.3 H WBC Differential . Differential Comment Auto diff final BUN 7 Assessment and Plan - Assessment (1) Cellulitis Code(s): L03.90 - Cellulitis, unspecified Status: Acute Plan: This is a 77 year old female patient with a past medical history which includes : Hypercoagulable, essential thrombocytosis, myelofibrosis, pancreatitis, splenic infarction, right leg thromboembolic occlusion, Osteoarthritis, HTN, Anemia, Hyperlipidemia, Hypothyroidism, Asthma, ckd, Anxiety/Depression, Fibromyalgia, erosive gastritis and right AKA on 01/24/[address] Forbes. Patient is a poor historian, information gathered from patient, prior computerized charting and talking with outpatient PCP DR. Oviedo. Notes from ER [facility] reports that patient was set to the hospital from wound care clinic Dr. Cardona due to failed outpatient abx therapy for LLE ulcer which had been present for 6 weeks prior to arrival on 07/20/18. Patient was admitted to [facility] from 07/20/18 to 07/23/18 treated for cellulitis of LLE. Patient was treated with Zosyn and Vancomycin. Patient then left [facility] AMA. Patient did see her PCP Dr. Oviedo after DC on 07/25/18. PCP Dr. Oviedo was able to get patient admitted to [facility] with orders for IV Vancomycin and Ancef through 08/03 as well as wound care physician. Patient then left [facility] after four days. Patient reports that she is now home with her . Patient reports that the pressure ulceration on buttock started approximately 2 weeks ago. Patient reports that the buttock ulcers are getting more painful and are now bleeding. Patient denies fevers, chills, N/V/D/C, SOB or chest pain. WBC elevated on admission was 16.7 Cellulitis and open ulcerations buttocks - Pt had a noted WBC elevated on admission was 16.7 -> 13.7 (08/01) - At admission the pt had an existing PICC line LUE which was removed - Continue Vancomycin IV with pharmacy to dose and zosyn - Continue Diflucan PO 100mg PO daily - Appreciate Wound care consultation, recommendation: 1. Manually reposition patient every 2 hours for comfort and offloading 2. Please control moisture by use of Purewic female cath and UltraSorb moisture wicking underpads. 3.Cleanse intra gluteal cleft bilateral ischium and vagina skin folds with remedy soft cloth barrier wipes or normal saline.Pat dry 4. Apply Silvadene/Lidocaine 4% , 50/50 mix to open wound base and periwound cover with Maxorb ll cut to fit wound bases secure with ABD /paper tape. 5. Change dressing daily or as needed for dislodgement/exudate management. 6. Follow up with out patient wound center. wound cx of buttock growing gnr morganella morganii. abx adjusted cont wound care Ulceration left foot - Patient recently admitted to [facility] - treated for cellulitis and failed outpatient therapy - Continue Vancomycin IV - Follow wound care recommendations Hypercoagulable (followed by Dr. Atwood outpatient hematology) - Pt with history of splenic infarct, right leg thromboembolic occlusion - Continue patient's home Xarelto Hypothyroidism - Continue home levothyroxine Asthma - Duonebs as needed HTN - Continue home amlodipine 2.5 mg daily DVT prophylaxis with Xarelto (1) Cellulitis Qualifiers: Site of cellulitis: buttock Qualified Code(s): L03.317 - Cellulitis of buttock
[2018-08-05] MEDS: Levofloxacin 500 mg Premix Inj 500 MG/100 ML PIGGYBACK IV.SIG SCH (15:15)
[2018-08-06] MEDS: Levothyroxine 150 MCG Tablet PO SCH (05:30)
[2018-08-06 07:12] LABS: Baso # (Auto) 0.1 th/mm3 (0.0-0.2); Baso % (Auto) 0.7 % (0.0-2.0); Eos # (Auto) 1.7 th/mm3 (0.0-0.4); Eos % (Auto) 9.6 % (0.0-4.0); Hematocrit 40.3 % (35.0-46.0); Hemoglobin 12.4 gm/dL (11.6-15.3); Lymph # (Auto) 2.8 th/mm3 (1.0-4.8); Lymph % (Auto) 15.9 % (9.0-44.0); Mean Corpuscular Hemoglobin 24.4 pg (27.0-34.0); Mean Platelet Volume 9.5 fL (7.0-11.0); Mono # (Auto) 2.1 th/mm3 (0.0-0.9); Mono % (Auto) 11.6 % (0.0-8.0); Neut % (Auto) 62.2 % (16.0-70.0); Platelet Count 731 th/mm3 (150-450); Red Cell Distribution Width 19.2 % (11.6-17.2); White Blood Count 17.8 th/mm3 (4.0-11.0)
[2018-08-06 07:17] LABS: Mean Corpuscular HGB Conc 30.8 % (32.0-36.0)
[2018-08-06] MEDS: Nystatin 100,000 UNITS/GM Powder 15 GM Bottle TOPICAL SCH ×4 (09:14→21:14)
[2018-08-06] MEDS: Silver Sulfadiazine 1% Ceam 400 GM Jar TOPICAL SCH (09:14)
[2018-08-06] MEDS: Senna/Docusate Sodium 8.6/50 MG Tablet PO SCH ×2 (09:14→21:13)
[2018-08-06] MEDS: amLODIPine 5 MG Tablet PO SCH (09:14)
[2018-08-06] MEDS: Rivaroxaban 10 MG Tablet PO SCH (09:14)
[2018-08-06] MEDS: oxyCODONE/Acetaminophen 10/325 Tablet PO PRN ×3 (09:19→21:14)
--- NOTE | 2018-08-06 10:44 | P.PNIM ---
Subjective Interval history: Pt without any new complaints today She was seen during dressing changes for the buttock wounds and they appear to be improving with wound care Physical Exam Vital signs: Vital Signs 08/05/18 12:00 08/05/18 16:00 08/05/18 20:00 Temperature 98.3 F 98.1 F 97.7 F Pulse Rate 67 72 72 Respiratory Rate 18 18 18 Blood Pressure 126/52 L 106/55 L 107/55 L Pulse Oximetry 97 98 96 08/06/18 00:00 08/06/18 04:00 08/06/18 08:00 Temperature 98.4 F 97.9 F 98.0 F Pulse Rate 72 69 71 Respiratory Rate 18 18 18 Blood Pressure 113/56 L 105/65 126/66 Pulse Oximetry 97 98 99 Intake & Output 08/05/18 08/06/18 08/06/18 18:59 06:59 18:59 Intake Total 100 / 100 Output Total 700 / 700 Balance -600 / -600 Weight 68.1 kg Intake: IV 100 / 100 Levaquin 500 mg Premix Inj 500 100 / 100 mg In 100 ml @ 100 mls/hr IV. SIG Q24H FORTINO Rx#:[id number] Output: Urine 700 / 700 Urine/Stool Mix 0 / 0 Other: Date of Last Bowel Movement 08/01/18 08/02/18 # Bowel Movements 0 Narrative: GENERAL: This is a well-nourished, well-developed patient, in no acute distress. SKIN: 3 large open stage two ulcerations bilateral buttock with surrounding erythema, appears to be improving. Left anterior foot with ulceration improving. CARDIO: Regular RESP: CTA bilaterally. ABD: +BS, soft, non-tender, nondistended. EXT: R AKA Results - Labs CBC & Chem 7: 08/06/18 06:12 08/06/18 06:12 Laboratory Results - last 24 hr 08/06/18 08/06/18 06:12 06:12 WBC 17.8 H RBC 5.10 Hgb 12.4 Hct 40.3 MCV 79.0 L MCH 24.4 L MCHC 30.8 L RDW 19.2 H Plt Count 731 H MPV 9.5 Neut % (Auto) 62.2 Lymph % (Auto) 15.9 [place] % (Auto) 11.6 H Eos % (Auto) 9.6 H Baso % (Auto) 0.7 Neut # (Auto) 11.0 H Lymph # (Auto) 2.8 [place] # (Auto) 2.1 H Eos # (Auto) 1.7 H Baso # (Auto) 0.1 WBC Differential . Differential Comment Auto diff final BUN 13 Assessment and Plan - Assessment (1) Cellulitis Code(s): L03.90 - Cellulitis, unspecified Status: Acute Plan: This is a 77 year old female patient with a past medical history which includes : Hypercoagulable, essential thrombocytosis, myelofibrosis, pancreatitis, splenic infarction, right leg thromboembolic occlusion, Osteoarthritis, HTN, Anemia, Hyperlipidemia, Hypothyroidism, Asthma, ckd, Anxiety/Depression, Fibromyalgia, erosive gastritis and right AKA on 01/24/[address] Forbes. Patient is a poor historian, information gathered from patient, prior computerized charting and talking with outpatient PCP DR. Oviedo. Notes from ER [facility] reports that patient was set to the hospital from wound care clinic Dr. Cardona due to failed outpatient abx therapy for LLE ulcer which had been present for 6 weeks prior to arrival on 07/20/18. Patient was admitted to [facility] from 07/20/18 to 07/23/18 treated for cellulitis of LLE. Patient was treated with Zosyn and Vancomycin. Patient then left [facility] AMA. Patient did see her PCP Dr. Oviedo after DC on 07/25/18. PCP Dr. Oviedo was able to get patient admitted to [facility] with orders for IV Vancomycin and Ancef through 08/03 as well as wound care physician. Patient then left [facility] after four days. Patient reports that she is now home with her . Patient reports that the pressure ulceration on buttock started approximately 2 weeks ago. Patient reports that the buttock ulcers are getting more painful and are now bleeding. Patient denies fevers, chills, N/V/D/C, SOB or chest pain. WBC elevated on admission was 16.7 Cellulitis and open ulcerations buttocks - Pt had a noted WBC elevated on admission was 16.7 -> 13.7 (08/01) - At admission the pt had an existing PICC line LUE which was removed - Continue Vancomycin IV with pharmacy to dose and zosyn - Continue Diflucan PO 100mg PO daily - Appreciate Wound care consultation, recommendation: 1. Manually reposition patient every 2 hours for comfort and offloading 2. Please control moisture by use of Purewic female cath and UltraSorb moisture wicking underpads. 3.Cleanse intra gluteal cleft bilateral ischium and vagina skin folds with remedy soft cloth barrier wipes or normal saline.Pat dry 4. Apply Silvadene/Lidocaine 4% , 50/50 mix to open wound base and periwound cover with Maxorb ll cut to fit wound bases secure with ABD /paper tape. 5. Change dressing daily or as needed for dislodgement/exudate management. 6. Follow up with out patient wound center. 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 - Abx changed to Levaquin IV on 08/04 - Cont daily wound care Ulceration left foot - Patient recently admitted to [facility] - treated for cellulitis and failed outpatient therapy - Continue Levaquin IV - Follow wound care recommendations Hypercoagulable (followed by Dr. Atwood outpatient hematology) - Pt with history of splenic infarct, right leg thromboembolic occlusion - Continue patient's home Xarelto Hypothyroidism - Continue home levothyroxine Asthma - Duonebs as needed HTN - Continue home amlodipine 2.5 mg daily DVT prophylaxis with Xarelto The exam, history, and the medical decision-making described in the above note were completed with the assistance of the mid-level provider. I reviewed and agree with the findings presented. I attest that I had a [id number] encounter with the patient on the same day, and personally performed and documented my assessment and findings in the medical record. buttock wounds improving but still severe superficial erosions with bleeding. no purulent drainage. cont abx and wound care . would benefit from snf at mo. (1) Cellulitis Qualifiers: Site of cellulitis: buttock Qualified Code(s): L03.317 - Cellulitis of buttock
[2018-08-06] MEDS: Vancomycin Inj 750 MG in Sodium Chlor 0.9% Inj 250 ML IV.SIG SCH (14:41)
[2018-08-06] MEDS: LORazepam 0.5 MG Tablet PO PRN (16:02)
[2018-08-06] MEDS: Levofloxacin 500 mg Premix Inj 500 MG/100 ML PIGGYBACK IV.SIG SCH (16:22)
[2018-08-07] MEDS: LORazepam 0.5 MG Tablet PO PRN ×3 (00:39→21:57)
[2018-08-07] MEDS: oxyCODONE/Acetaminophen 10/325 Tablet PO PRN ×2 (00:39→18:23)
[2018-08-07] MEDS: Levothyroxine 150 MCG Tablet PO SCH (06:06)
[2018-08-07] MEDS: amLODIPine 5 MG Tablet PO SCH (08:53)
[2018-08-07] MEDS: Rivaroxaban 10 MG Tablet PO SCH (08:54)
[2018-08-07] MEDS: Nystatin 100,000 UNITS/GM Powder 15 GM Bottle TOPICAL SCH ×4 (09:37→21:59)
[2018-08-07] MEDS: Silver Sulfadiazine 1% Ceam 400 GM Jar TOPICAL SCH (09:38)
[2018-08-07] MEDS: Senna/Docusate Sodium 8.6/50 MG Tablet PO SCH ×2 (09:38→22:00)
[2018-08-07] MEDS: Vancomycin Inj 750 MG in Sodium Chlor 0.9% Inj 250 ML IV.SIG SCH (12:02)
--- NOTE | 2018-08-07 13:18 | P.PNIM ---
Subjective Interval history: No new complaints. Physical Exam Vital signs: 08/07/18 04:00 08/07/18 08:00 08/07/18 12:00 Temperature 98.1 F 97.8 F 97.9 F Pulse Rate 67 63 65 Respiratory Rate 18 16 16 Blood Pressure 108/51 L 124/56 L 120/56 L Pulse Oximetry 96 99 96 Narrative: GENERAL: This is a well-nourished, well-developed patient, in no acute distress. SKIN: 3 large open stage two ulcerations bilateral buttock with surrounding erythema, appears to be improving. Left anterior foot with ulceration improving. CARDIO: Regular RESP: CTA bilaterally. ABD: +BS, soft, non-tender, nondistended. EXT: R AKA Results - Labs CBC & Chem 7: 08/06/18 06:12 08/07/18 05:14 Assessment and Plan - Assessment (1) Cellulitis Code(s): L03.90 - Cellulitis, unspecified Status: Acute Plan: This is a 77 year old female patient with a past medical history which includes : Hypercoagulable, essential thrombocytosis, myelofibrosis, pancreatitis, splenic infarction, right leg thromboembolic occlusion, Osteoarthritis, HTN, Anemia, Hyperlipidemia, Hypothyroidism, Asthma, ckd, Anxiety/Depression, Fibromyalgia, erosive gastritis and right AKA on 01/24/[address] Forbes. Patient is a poor historian, information gathered from patient, prior computerized charting and talking with outpatient PCP DR. Oviedo. Notes from ER [facility] reports that patient was set to the hospital from wound care clinic Dr. Cardona due to failed outpatient abx therapy for LLE ulcer which had been present for 6 weeks prior to arrival on 07/20/18. Patient was admitted to [facility] from 07/20/18 to 07/23/18 treated for cellulitis of LLE. Patient was treated with Zosyn and Vancomycin. Patient then left [facility] AMA. Patient did see her PCP Dr. Oviedo after DC on 07/25/18. PCP Dr. Oviedo was able to get patient admitted to [facility] with orders for IV Vancomycin and Ancef through 08/03 as well as wound care physician. Patient then left [facility] after four days. Patient reports that she is now home with her . Patient reports that the pressure ulceration on buttock started approximately 2 weeks ago. Patient reports that the buttock ulcers are getting more painful and are now bleeding. Patient denies fevers, chills, N/V/D/C, SOB or chest pain. WBC elevated on admission was 16.7 Cellulitis and open ulcerations buttocks - Pt had a noted WBC elevated on admission was 16.7 -> 13.7 (08/01) - At admission the pt had an existing PICC line LUE which was removed - Continue Vancomycin IV with pharmacy to dose and zosyn - Continue Diflucan PO 100mg PO daily - Appreciate Wound care consultation, recommendation: 1. Manually reposition patient every 2 hours for comfort and offloading 2. Please control moisture by use of Purewic female cath and UltraSorb moisture wicking underpads. 3.Cleanse intra gluteal cleft bilateral ischium and vagina skin folds with remedy soft cloth barrier wipes or normal saline.Pat dry 4. Apply Silvadene/Lidocaine 4% , 50/50 mix to open wound base and periwound cover with Maxorb ll cut to fit wound bases secure with ABD /paper tape. 5. Change dressing daily or as needed for dislodgement/exudate management. 6. Follow up with out patient wound center. 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 - IV levaquin (08/04 - present) - b/l buttock wound appeared irritated - case d/w nurse & floor covering printer assistant. I have requested close nursing care to ensure that would remains dry with care as outlined above. - Pt NOT yet ready for discharge - anticipate d/c to SNF in 2-3 days Ulceration left foot - resolved (08/07) - Patient recently admitted to [facility] - treated for cellulitis and failed outpatient therapy - Continue Levaquin IV - Follow wound care recommendations Hypercoagulable (followed by Dr. Atwood outpatient hematology) - Pt with history of splenic infarct, right leg thromboembolic occlusion - Continue patient's home Xarelto Hypothyroidism - Continue home levothyroxine Asthma - Duonebs as needed HTN - Continue home amlodipine 2.5 mg daily DVT prophylaxis with Xarelto (1) Cellulitis Qualifiers: Site of cellulitis: [facility] Qualified Code(s): L03.317 - Cellulitis [facility]
[2018-08-07] MEDS: Levofloxacin 500 mg Premix Inj 500 MG/100 ML PIGGYBACK IV.SIG SCH (15:04)
[2018-08-08] MEDS: oxyCODONE/Acetaminophen 10/325 Tablet PO PRN ×4 (00:38→20:16)
[2018-08-08] MEDS: Levothyroxine 150 MCG Tablet PO SCH (06:18)
[2018-08-08] MEDS: amLODIPine 5 MG Tablet PO SCH (10:11)
[2018-08-08] MEDS: Nystatin 100,000 UNITS/GM Powder 15 GM Bottle TOPICAL SCH ×4 (10:12→20:15)
[2018-08-08] MEDS: Rivaroxaban 10 MG Tablet PO SCH (10:12)
[2018-08-08] MEDS: Senna/Docusate Sodium 8.6/50 MG Tablet PO SCH ×2 (10:12→20:16)
[2018-08-08] MEDS: Silver Sulfadiazine 1% Ceam 400 GM Jar TOPICAL SCH (10:12)
[2018-08-08] MEDS: LORazepam 0.5 MG Tablet PO PRN ×2 (12:22→22:42)
[2018-08-08] MEDS: Vancomycin Inj 750 MG in Sodium Chlor 0.9% Inj 250 ML IV.SIG SCH (12:22)
--- NOTE | 2018-08-08 12:31 | P.PNIM ---
Subjective Interval history: Follow up: Cellulitis and open ulcerations buttocks and Ulceration left foot - resolved (08/07) Patient and RN report that ulcerations on buttocks are improving Patient reports mild itching bilateral upper extremity AC spaces Offers no other complaints at this time Physical Exam Vital signs: Vital Signs 08/07/18 16:00 08/07/18 20:00 08/08/18 00:00 Temperature 98.4 F 98.4 F 98.0 F Pulse Rate 78 71 67 Respiratory Rate 16 18 18 Blood Pressure 112/54 L 102/53 L 109/56 L Pulse Oximetry 98 96 95 08/08/18 04:00 08/08/18 08:00 08/08/18 12:00 Temperature 98.2 F 97.8 F 97.9 F Pulse Rate 66 73 102 H Respiratory Rate 18 20 20 Blood Pressure 110/60 113/53 L 98/47 L Pulse Oximetry 97 99 97 Intake & Output 08/07/18 08/08/18 08/08/18 18:59 06:59 18:59 Intake Total 1077.5 / 1077.5 Output Total 750 / 750 1000 / 1000 Balance 327.5 / 327.5 -1000 / -1000 Intake: IV 357.5 / 357.5 Levaquin 500 mg Premix Inj 500 100 / 100 mg In 100 ml @ 100 mls/hr IV. SIG Q24H [facility] Rx#:[id number] Vancomycin Inj 750 MG In NS Inj 257.5 / 257.5 250 ML @ 250 mls/hr IV.SIG Q24H [facility] Rx#:[id number] Oral 720 / 720 Output: Urine 750 / 750 1000 / 1000 Other: Date of Last Bowel Movement 08/02/18 08/06/18 08/06/18 # Bowel Movements 0 Narrative: GENERAL: This is a well-nourished, well-developed patient, in no acute distress. SKIN: 3 large open stage two ulcerations bilateral buttock with surrounding erythema, appears to be improving. Left anterior foot with ulceration improving. CARDIO: Regular RESP: CTA bilaterally. ABD: +BS, soft, non-tender, nondistended. EXT: R AKA Results - Labs CBC & Chem 7: 08/06/18 06:12 08/12/18 09:54 Laboratory Results - last 24 hr 08/08/18 06:57 BUN 16 Creatinine 0.80 Estimated GFR 70 L Assessment and Plan - Assessment (1) Cellulitis Code(s): L03.90 - Cellulitis, unspecified Status: Acute Plan: This is a 77 year old female patient with a past medical history which includes : Hypercoagulable, essential thrombocytosis, myelofibrosis, pancreatitis, splenic infarction, right leg thromboembolic occlusion, Osteoarthritis, HTN, Anemia, Hyperlipidemia, Hypothyroidism, Asthma, ckd, Anxiety/Depression, Fibromyalgia, erosive gastritis and right AKA on 01/24/[address] Forbes. Patient is a poor historian, information gathered from patient, prior computerized charting and talking with outpatient PCP DR. Oviedo. Notes from ER [facility] reports that patient was set to the hospital from wound care clinic Dr. Cardona due to failed outpatient abx therapy for LLE ulcer which had been present for 6 weeks prior to arrival on 07/20/18. Patient was admitted to [facility] from 07/20/18 to 07/23/18 treated for cellulitis of LLE. Patient was treated with Zosyn and Vancomycin. Patient then left [facility] AMA. Patient did see her PCP Dr. Oviedo after DC on 07/25/18. PCP Dr. Oviedo was able to get patient admitted to [facility] with orders for IV Vancomycin and Ancef through 08/03 as well as wound care physician. Patient then left [facility] after four days. Patient reports that she is now home with her . Patient reports that the pressure ulceration on buttock started approximately 2 weeks ago. Patient reports that the buttock ulcers are getting more painful and are now bleeding. Patient denies fevers, chills, N/V/D/C, SOB or chest pain. WBC elevated on admission was 16.7 Cellulitis and open ulcerations buttocks - Pt had a noted WBC elevated on admission was 16.7 -> 13.7 (08/01) - At admission the pt had an existing PICC line LUE which was removed - Continue Vancomycin IV with pharmacy to dose and zosyn - Continue Diflucan PO 100mg PO daily - Appreciate Wound care consultation, recommendation: 1. Manually reposition patient every 2 hours for comfort and offloading 2. Please control moisture by use of Purewic female cath and UltraSorb moisture wicking underpads. 3.Cleanse intra gluteal cleft bilateral ischium and vagina skin folds with remedy soft cloth barrier wipes or normal saline.Pat dry 4. Apply Silvadene/Lidocaine 4% , 50/50 mix to open wound base and periwound cover with Maxorb ll cut to fit wound bases secure with ABD /paper tape. 5. Change dressing daily or as needed for dislodgement/exudate management. 6. Follow up with out patient wound center. 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 - IV levaquin (08/04 - present) - b/l buttock wound appeared irritated - case d/w nurse & floorworker lasting. I have requested close nursing care to ensure that would remains dry with care as outlined above. - Pt NOT yet ready for discharge - anticipate d/c to SNF in 1-2 days Ulceration left foot - resolved (08/07) - Patient recently admitted to [facility] - treated for cellulitis and failed outpatient therapy - Continue Levaquin IV - Follow wound care recommendations Hypercoagulable (followed by Dr. Atwood outpatient hematology) - Pt with history of splenic infarct, right leg thromboembolic occlusion - Continue patient's home Xarelto Hypothyroidism - Continue home levothyroxine Asthma - Duonebs as needed HTN - Continue home amlodipine 2.5 mg daily DVT prophylaxis with Xarelto - Attending Attestation Patient examined. Assessment and plan formulated with Tiana Brannon PA-C. I agree with the above. (1) Cellulitis Qualifiers: Site of cellulitis: buttock Qualified Code(s): L03.317 - Cellulitis of buttock
[2018-08-08] MEDS: Levofloxacin 250 mg Premix Inj 250 MG/50 ML PIGGYBACK IV.SIG SCH (16:21)
[2018-08-09] MEDS: oxyCODONE/Acetaminophen 10/325 Tablet PO PRN ×4 (04:05→21:32)
[2018-08-09] MEDS: Levothyroxine 150 MCG Tablet PO SCH (05:10)
[2018-08-09] MEDS: Rivaroxaban 10 MG Tablet PO SCH (08:11)
[2018-08-09] MEDS: amLODIPine 5 MG Tablet PO SCH (08:12)
[2018-08-09] MEDS: LORazepam 0.5 MG Tablet PO PRN ×2 (08:12→17:02)
[2018-08-09] MEDS: Senna/Docusate Sodium 8.6/50 MG Tablet PO SCH ×2 (08:12→21:33)
[2018-08-09] MEDS: Silver Sulfadiazine 1% Ceam 400 GM Jar TOPICAL SCH (11:27)
[2018-08-09] MEDS: Nystatin 100,000 UNITS/GM Powder 15 GM Bottle TOPICAL SCH ×4 (11:27→21:33)
[2018-08-09] MEDS ORDERED: Pharmacy Ordered Lab Info OTHER ONE (12:45)
--- NOTE | 2018-08-09 13:50 | P.PNIM ---
Subjective Interval history: Follow up: Cellulitis and open ulcerations buttocks and Ulceration left foot - resolved (08/07) Patient reports that ulcerations on buttocks and left foot are improving Offers no other complaints at this time Physical Exam Vital signs: Vital Signs 08/08/18 16:00 08/08/18 20:00 08/09/18 00:00 Temperature 98.1 F 97.8 F 98.1 F Pulse Rate 75 71 71 Respiratory Rate 18 16 16 Blood Pressure 103/59 L 105/51 L 97/54 L Pulse Oximetry 97 98 96 08/09/18 04:00 08/09/18 08:00 08/09/18 12:00 Temperature 98 F 98.1 F 98.2 F Pulse Rate 66 64 68 Respiratory Rate 16 20 18 Blood Pressure 112/52 L 107/59 L 106/56 L Pulse Oximetry 96 96 96 Intake & Output 08/08/18 08/09/18 08/09/18 18:59 06:59 18:59 Intake Total 667.5 / 667.5 480 / 480 Output Total 500 / 500 1000 / 1000 Balance 167.5 / 167.5 -520 / -520 Weight 66.3 kg Intake: IV 307.5 / 307.5 Levaquin 250 mg Premix Inj 250 50 / 50 mg In 50 ml @ 100 mls/hr IV.SIG Q24H [facility] Rx#:[id number] Vancomycin Inj 750 MG In NS Inj 257.5 / 257.5 250 ML @ 250 mls/hr IV.SIG Q24H [facility] Rx#:[id number] Oral 360 / 360 480 / 480 Output: Urine 500 / 500 1000 / 1000 Other: Date of Last Bowel Movement 08/06/18 08/08/18 # Bowel Movements 1 Narrative: GENERAL: This is a well-nourished, well-developed patient, in no acute distress. SKIN: 3 large open stage two ulcerations bilateral buttock with surrounding erythema, appears to be improving. Left anterior foot with ulceration improving. CARDIO: Regular RESP: CTA bilaterally. ABD: +BS, soft, non-tender, nondistended. EXT: R AKA Results - Labs CBC & Chem 7: 08/06/18 06:12 08/12/18 09:54 Laboratory Results - last 24 hr 08/09/18 04:52 Creatinine 0.74 Estimated GFR 76 L Assessment and Plan - Assessment (1) Cellulitis Code(s): L03.90 - Cellulitis, unspecified Status: Acute Plan: This is a 77 year old female patient with a past medical history which includes : Hypercoagulable, essential thrombocytosis, myelofibrosis, pancreatitis, splenic infarction, right leg thromboembolic occlusion, Osteoarthritis, HTN, Anemia, Hyperlipidemia, Hypothyroidism, Asthma, ckd, Anxiety/Depression, Fibromyalgia, erosive gastritis and right AKA on 01/24/[address] Forbes. Patient is a poor historian, information gathered from patient, prior computerized charting and talking with outpatient PCP DR. Oviedo. Notes from ER [facility] reports that patient was set to the hospital from wound care clinic Dr. Cardona due to failed outpatient abx therapy for LLE ulcer which had been present for 6 weeks prior to arrival on 07/20/18. Patient was admitted to [facility] from 07/20/18 to 07/23/18 treated for cellulitis of LLE. Patient was treated with Zosyn and Vancomycin. Patient then left [facility] AMA. Patient did see her PCP Dr. Oviedo after DC on 07/25/18. PCP Dr. Oviedo was able to get patient admitted to [facility] with orders for IV Vancomycin and Ancef through 08/03 as well as wound care physician. Patient then left [facility] after four days. Patient reports that she is now home with her . Patient reports that the pressure ulceration on buttock started approximately 2 weeks ago. Patient reports that the buttock ulcers are getting more painful and are now bleeding. Patient denies fevers, chills, N/V/D/C, SOB or chest pain. WBC elevated on admission was 16.7 Cellulitis and open ulcerations buttocks - Pt had a noted WBC elevated on admission was 16.7 -> 13.7 (08/01) - At admission the pt had an existing PICC line LUE which was removed - Continue Vancomycin IV with pharmacy to dose and zosyn - Continue Diflucan PO 100mg PO daily - Appreciate Wound care consultation, recommendation: 1. Manually reposition patient every 2 hours for comfort and offloading 2. Please control moisture by use of Purewic female cath and UltraSorb moisture wicking under pads. 3.Cleanse intra gluteal cleft bilateral ischium and vagina skin folds with remedy soft cloth barrier wipes or normal saline.Pat dry 4. Apply Silvadene/Lidocaine 4% , 50/50 mix to open wound base and periwound cover with Maxorb ll cut to fit wound bases secure with ABD /paper tape. 5. Change dressing daily or as needed for dislodgement/exudate management. 6. Follow up with out patient wound center. 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 - IV levaquin (08/04 - present) - b/l buttock wound appeared irritated - case d/w nurse & stock handler floorperson. I have requested close nursing care to ensure that would remains dry with care as outlined above. - (08/08) Per patient request Dr. Mosquera discussed the case in details with patient's son over the phone. Dr. Mosquera recommending SNF placement at time of DC. Patient refusing [facility] as she as recently left [facility]. Patient willing to consider [facility]. Patient's son plans to go and look at [facility]. - anticipate d/c to SNF in 1-2 days Ulceration left foot - resolved (08/07) - Patient recently admitted to [facility] - treated for cellulitis and failed outpatient therapy - Continue Levaquin IV - Follow wound care recommendations Hypercoagulable (followed by Dr. Atwood outpatient hematology) - Pt with history of splenic infarct, right leg thromboembolic occlusion - Continue patient's home Xarelto Hypothyroidism - Continue home levothyroxine Asthma - Duonebs as needed HTN - Continue home amlodipine 2.5 mg daily DVT prophylaxis with Xarelto - Attending Attestation Patient examined. Assessment and plan formulated with Tiana Brannon PA-C. I agree with the above. (1) Cellulitis Qualifiers: Site of cellulitis: buttock Qualified Code(s): L03.317 - Cellulitis of buttock
[2018-08-09] MEDS: Vancomycin Inj 750 MG in Sodium Chlor 0.9% Inj 250 ML IV.SIG SCH (13:52)
[2018-08-09 13:55] LABS: Vancomycin,Trough 8.3 mcg/mL (5.0-10.0)
[2018-08-09] MEDS: Levofloxacin 250 mg Premix Inj 250 MG/50 ML PIGGYBACK IV.SIG SCH (14:27)
[2018-08-10] MEDS: oxyCODONE/Acetaminophen 10/325 Tablet PO PRN ×4 (03:35→22:38)
[2018-08-10] MEDS: LORazepam 0.5 MG Tablet PO PRN ×2 (03:35→22:39)
[2018-08-10] MEDS: Levothyroxine 150 MCG Tablet PO SCH (05:48)
[2018-08-10] MEDS: Rivaroxaban 10 MG Tablet PO SCH (09:46)
[2018-08-10] MEDS: amLODIPine 5 MG Tablet PO SCH (09:46)
[2018-08-10] MEDS: Nystatin 100,000 UNITS/GM Powder 15 GM Bottle TOPICAL SCH ×4 (09:47→22:41)
[2018-08-10] MEDS ORDERED: Vancomycin Inj 1,000 MG in Sodium Chlor 0.9% Inj 250 ML IV.SIG SCH (11:00)
[2018-08-10] MEDS: Senna/Docusate Sodium 8.6/50 MG Tablet PO SCH ×2 (12:34→22:41)
[2018-08-10] MEDS: Silver Sulfadiazine 1% Ceam 400 GM Jar TOPICAL SCH (12:35)
[2018-08-10] MEDS: Levofloxacin 250 mg Premix Inj 250 MG/50 ML PIGGYBACK IV.SIG SCH (14:28)
--- NOTE | 2018-08-10 16:21 | P.DS ---
<Tiana Brannon W - Last Filed: 08/14/18 13:25> Date of admission: 07/31/18 16:06 Primary care physician: Derek Oviedo MD Attending physician on discharge: Austin Campbell DS: Diagnosis - Discharge Diagnosis (1) Cellulitis Status: Acute (2) Decubitus skin ulcer Status: Acute DS: Medications - Discharge Medications Prescriptions: docusate sodium [DOK] 100 mg PO BID 30 Days #60 cap lidocaine-transparent dressing [LMX 4 Plus] 1 applicatio TOPICAL PRN PRN 30 Days each PRN Reason: dressing changes nystatin 1 applicatio TOPICAL BID 30 Days g silver sulfadiazine [Silvadene] 1 applicatio TOPICAL DAILY 30 Days g DS: Summary Hospital Course: 08/11 Patient medically stable and DC'd to SNF, awaiting DC placement 08/12 Patient medically stable and orders to DC to SNF written 08/11, awaiting DC placement 08/12 Patient continues to remain medically stable DC'd 08/11 awaiting SNF placement 08/14..still awaiting snf. 08/14: Discussed at length with patient and Son Reg over the phone . Patient no longer willing to go to SNF, wants like to be discharged home with C. Patient has completed systemic abx and wounds are improving. Will DC home with HHC and close observation from Son and Dr. Oviedo. Dr. Campbell discussed with Dr. Oviedo. - Time Spent with Patient Total time spent providing and/or coordinating discharge services: Greater than 30 minutes Exam Vital signs: Vital Signs 08/13/18 16:00 08/13/18 20:00 08/14/18 00:00 Temperature 98.3 F 97.8 F 98 F Pulse Rate 95 H 75 65 Respiratory Rate 18 20 20 Blood Pressure 109/70 111/53 L 91/54 L Pulse Oximetry 96 96 95 08/14/18 04:00 08/14/18 08:00 Temperature 98 F 97.7 F Pulse Rate 69 67 Respiratory Rate 20 20 Blood Pressure 111/54 L 104/51 L Pulse Oximetry 98 95 Intake & Output 08/13/18 08/14/18 08/14/18 18:59 06:59 18:59 Intake Total 420 / 420 420 / 420 Output Total 0 / 0 Balance 420 / 420 420 / 420 Intake: Oral 420 / 420 420 / 420 Output: Urine/Stool Mix 0 / 0 Other: # Voids 4 2 Date of Last Bowel Movement 08/13/18 08/13/18 08/13/18 # Bowel Movements 2 2 Results Procedures completed during hospitalization: None <Adrian,Austin Damien - Last Filed: 08/17/18 13:40> Date of admission: 07/31/18 16:06 Primary care physician: Derek Oviedo MD DS: Diagnosis - Discharge Diagnosis (1) Cellulitis Status: Acute (2) Decubitus skin ulcer Status: Acute DS: Summary - Time Spent with Patient Total time spent providing and/or coordinating discharge services: <Herber Mosquera - Last Filed: 08/19/18 21:42> Date of admission: 07/31/18 16:06 Primary care physician: Derek Oviedo MD Attending physician on discharge: Herber Mosquera Brief History from admission: This is a 77 year old female patient with a past medical history which includes : Hypercoagulable, essential thrombocytosis, myelofibrosis, pancreatitis, splenic infarction, right leg thromboembolic occlusion, Osteoarthritis, HTN, Anemia, Hyperlipidemia, Hypothyroidism, Asthma, ckd, Anxiety/Depression, Fibromyalgia, erosive gastritis and right AKA on 01/24/[address] Forbes. Patient is a poor historian, information gathered from patient, prior computerized charting and talking with outpatient PCP DR. Oviedo. Notes from ER [facility] reports that patient was set to the hospital from wound care clinic Dr. Cardona due to failed outpatient abx therapy for LLE ulcer which had been present for 6 weeks prior to arrival on 07/20/18. Patient was admitted to [facility] from 07/20/18 to 07/23/18 treated for cellulitis of LLE. Patient was treated with Zosyn and Vancomycin. Patient then left [facility] AMA. Patient did see her PCP Dr. Oviedo after DC on 07/25/18. PCP Dr. Oviedo was able to get patient admitted to [facility] with orders for IV Vancomycin and Ancef through 08/03 as well as wound care physician. Patient then left [facility] after four days. Patient reports that she is now home with her . Patient reports that the pressure ulceration on buttock started approximately 2 weeks ago. Patient reports that the buttock ulcers are getting more painful and are now bleeding. Patient denies fevers, chills, N/V/D/C, SOB or chest pain. WBC elevated on admission was 16.7 Past Medical/Surgical History Hypercoagulable essential thrombocytosis myelofibrosis pancreatitis splenic infarction right leg thromboembolic occlusion Osteoarthritis HTN Anemia Hyperlipidemia Hypothyroidism Asthma ckd Anxiety/Depression Fibromyalgia Hx of erosive gastritis Past Surgical History: right AKA on 01/24/[address] Forbes Left total hip arthroplasty with direct anterior exposure Anterior colporrhaphy Hysterectomy Tubal ligation Breast lumpectomy (benign) Family History Mother - Hx of aneurysm, blood clot when she was Father - CAD/PR Brother - Hx of CAD, Ulcerative colitis, Diabetes Sister - Hx of colon cancer Social History no etoh/tob DS: Diagnosis - Discharge Diagnosis (1) Cellulitis Status: Acute DS: Summary Hospital Course: (1) Cellulitis Code(s): L03.90 - Cellulitis, unspecified Status: Acute Plan: This is a 77 year old female patient with a past medical history which includes : Hypercoagulable, essential thrombocytosis, myelofibrosis, pancreatitis, splenic infarction, right leg thromboembolic occlusion, Osteoarthritis, HTN, Anemia, Hyperlipidemia, Hypothyroidism, Asthma, ckd, Anxiety/Depression, Fibromyalgia, erosive gastritis and right AKA on 01/24/[address] Forbes. Patient is a poor historian, information gathered from patient, prior computerized charting and talking with outpatient PCP DR. Oviedo. Notes from ER [facility] reports that patient was set to the hospital from wound care clinic Dr. Cardona due to failed outpatient abx therapy for LLE ulcer which had been present for 6 weeks prior to arrival on 07/20/18. Patient was admitted to [facility] from 07/20/18 to 07/23/18 treated for cellulitis of LLE. Patient was treated with Zosyn and Vancomycin. Patient then left [facility] AMA. Patient did see her PCP Dr. Oviedo after DC on 07/25/18. PCP Dr. Oviedo was able to get patient admitted to [facility] with orders for IV Vancomycin and Ancef through 08/03 as well as wound care physician. Patient then left [place] [facility] after four days. Patient reports that she is now home with her . Patient reports that the pressure ulceration on buttock started approximately 2 weeks ago. Patient reports that the buttock ulcers are getting more painful and are now bleeding. Patient denies fevers, chills, N/V/D/C, SOB or chest pain. WBC elevated on admission was 16.7 Cellulitis and open ulcerations buttocks - Pt had a noted WBC elevated on admission was 16.7 -> 13.7 (08/01) - At admission the pt had an existing PICC line LUE which was removed - Continue Vancomycin IV with pharmacy to dose and zosyn - Continue Diflucan PO 100mg PO daily - Appreciate Wound care consultation, recommendation: 1. Manually reposition patient every 2 hours for comfort and offloading 2. Please control moisture by use of Purewic female cath and UltraSorb moisture wicking under pads. 3.Cleanse intra gluteal cleft bilateral ischium and vagina skin folds with remedy soft cloth barrier wipes or normal saline.Pat dry 4. Apply Silvadene/Lidocaine 4% , 50/50 mix to open wound base and periwound cover with Maxorb ll cut to fit wound bases secure with ABD /paper tape. 5. Change dressing daily or as needed for dislodgement/exudate management. 6. Follow up with out patient wound center. 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 - IV levaquin (08/04 - 08/10) - b/l buttock wound appeared irritated on 08/07, but have improved over the course of the week - case d/w nurse & retail selling floor leader. I have requested close nursing care to ensure that would remains dry with care as outlined above. - (08/08) Per patient I discussed the case in details with patient's son over the phone. I recommending SNF placement at time of DC. Patient refusing [facility] as she as recently left [facility]. Patient willing to consider [facility]. - Unfortunately there are NO beds available at [facility]. - Discharge to SNF in AM 08/11/18 - [place] Case mgmt to work with pt/son to arrange safe discharge. - Pt will need SNF placement for continued aggressive wound care and PT for strengthening. - See discharge orders - f/u PCP, Dr. Derek Oviedo, one week after discharge from SNF. - Pt's discharge orders written several days prior to departure from [place] - Accepting SNF facility was NOT found & pt requested discharge to home instead. - [facility] arrangement were made. Ulceration left foot - resolved (08/07) - Patient recently admitted to [facility] - treated for cellulitis and failed outpatient therapy - resolved Hypercoagulable (followed by Dr. Atwood outpatient hematology) - Pt with history of splenic infarct, right leg thromboembolic occlusion - Continue patient's home Xarelto Hypothyroidism - Continue home levothyroxine Asthma - Duonebs as needed HTN - Continue home amlodipine 2.5 mg daily DVT prophylaxis with Xarelto - Time Spent with Patient Total time spent providing and/or coordinating discharge services: - Quality: VTE Deep Vein Thrombosis/Pulmonary Embolism Present on Admission: No Exam Vital signs: Vital Signs 08/09/18 20:00 08/10/18 00:00 08/10/18 04:00 Temperature 97.8 F 98 F 98.1 F Pulse Rate 86 95 H 65 Respiratory Rate 18 18 18 Blood Pressure 94/44 L 103/49 L 101/52 L Pulse Oximetry 96 93 L 95 08/10/18 08:00 08/10/18 12:00 Temperature 98.2 F 98.3 F Pulse Rate 66 69 Respiratory Rate 18 18 Blood Pressure 110/50 L 104/50 L Pulse Oximetry 97 95 Intake & Output 08/09/18 08/10/18 08/10/18 18:59 06:59 18:59 Intake Total 727.5 / 727.5 240 / 240 250 / 250 Output Total 50 / 50 Balance 727.5 / 727.5 190 / 190 250 / 250 Weight 66.5 kg Intake: IV 307.5 / 307.5 250 / 250 Levaquin 250 mg Premix Inj 250 50 / 50 mg In 50 ml @ 100 mls/hr IV.SIG Q24H [facility]INO Rx#:[id number] Vancomycin Inj 1,000 MG In NS 250 / 250 Inj 250 ML @ 250 mls/hr IV.SIG Q24H [facility] Rx#:[id number] Vancomycin Inj 750 MG In NS Inj 257.5 / 257.5 250 ML @ 250 mls/hr IV.SIG Q24H [facility] Rx#:[id number] Oral 420 / 420 240 / 240 Output: Urine 50 / 50 Other: # Voids 4 2 Date of Last Bowel Movement 08/09/18 08/09/18 # Bowel Movements 1 0 Results Labs on day of discharge: Labs from last 24 hours 08/10/18 05:47 BUN 17 Creatinine 0.89 Estimated GFR 62 L Discharge Plan - Discharge Order Discharge Orders: Discharge Order (Routine); Ordered 08/11/18 Ordered By: Tiana Brannon - Discharge Details Anticipated Discharge Date: 08/11/18 - Physicians Team Primary Care Provider: Derek Oviedo Attending Provider: Austin Campbell Other Providers: [facility],Agency ; [facility],Agency
[2018-08-11] MEDS: oxyCODONE/Acetaminophen 10/325 Tablet PO PRN ×4 (02:24→23:51)
[2018-08-11] MEDS: Levothyroxine 150 MCG Tablet PO SCH (06:24)
[2018-08-11] MEDS: Rivaroxaban 10 MG Tablet PO SCH (08:38)
[2018-08-11] MEDS: amLODIPine 5 MG Tablet PO SCH (08:38)
[2018-08-11] MEDS: levoFLOXacin 500 MG Tablet PO SCH (08:38)
[2018-08-11] MEDS: Senna/Docusate Sodium 8.6/50 MG Tablet PO SCH ×2 (08:39→20:40)
[2018-08-11] MEDS: Nystatin 100,000 UNITS/GM Powder 15 GM Bottle TOPICAL SCH ×4 (08:39→20:40)
[2018-08-11] MEDS: Silver Sulfadiazine 1% Ceam 400 GM Jar TOPICAL SCH (08:39)
[2018-08-11] MEDS: LORazepam 0.5 MG Tablet PO PRN ×2 (11:57→20:40)
--- NOTE | 2018-08-11 17:21 | P.PNIM ---
Subjective Interval history: Patient offers no new concerns/complaints DC orders written awaiting placement Physical Exam Vital signs: Vital Signs 08/10/18 20:00 08/10/18 23:36 08/11/18 04:00 Temperature 97.8 F 97.8 F 97.5 F L Pulse Rate 76 69 64 Respiratory Rate 18 18 18 Blood Pressure 97/52 L 120/58 L 107/59 L Pulse Oximetry 96 93 L 94 L 08/11/18 08:00 08/11/18 12:00 Temperature 97.8 F 98.6 F Pulse Rate 62 65 Respiratory Rate 18 18 Blood Pressure 112/53 L 99/50 L Pulse Oximetry 94 L 95 Intake & Output 08/10/18 08/11/18 08/11/18 18:59 06:59 18:59 Intake Total 1396 / 1396 360 / 360 Output Total 800 / 800 450 / 450 Balance 596 / 596 -90 / -90 Weight 68 kg Intake: IV 300 / 300 Levaquin 250 mg Premix Inj 250 50 / 50 mg In 50 ml @ 100 mls/hr IV.SIG Q24H [facility] Rx#:[id number] Vancomycin Inj 1,000 MG In NS 250 / 250 Inj 250 ML @ 250 mls/hr IV.SIG Q24H [facility] Rx#:[id number] Oral 1096 / 1096 360 / 360 Output: Urine 800 / 800 450 / 450 Other: # Voids 5 Date of Last Bowel Movement 08/09/18 08/09/18 # Bowel Movements 0 0 Narrative: GENERAL: This is a well-nourished, well-developed patient, in no acute distress. SKIN: 3 large open stage two ulcerations bilateral buttock with surrounding erythema, appears to be improving. Left anterior foot with ulceration improving. CARDIO: Regular RESP: CTA bilaterally. ABD: +BS, soft, non-tender, nondistended. EXT: R AKA Results - Labs CBC & Chem 7: 08/06/18 06:12 08/12/18 09:54 Laboratory Results - last 24 hr 08/11/18 07:07 BUN 14 Creatinine 0.79 Estimated GFR 71 L Assessment and Plan - Assessment (1) Cellulitis Code(s): L03.90 - Cellulitis, unspecified Status: Acute Plan: This is a 77 year old female patient with a past medical history which includes : Hypercoagulable, essential thrombocytosis, myelofibrosis, pancreatitis, splenic infarction, right leg thromboembolic occlusion, Osteoarthritis, HTN, Anemia, Hyperlipidemia, Hypothyroidism, Asthma, ckd, Anxiety/Depression, Fibromyalgia, erosive gastritis and right AKA on 01/24/[address] Forbes. Patient is a poor historian, information gathered from patient, prior computerized charting and talking with outpatient PCP DR. Oviedo. Notes from ER [facility] reports that patient was set to the hospital from wound care clinic Dr. Cardona due to failed outpatient abx therapy for LLE ulcer which had been present for 6 weeks prior to arrival on 07/20/18. Patient was admitted to [facility] from 07/20/18 to 07/23/18 treated for cellulitis of LLE. Patient was treated with Zosyn and Vancomycin. Patient then left [facility] AMA. Patient did see her PCP Dr. Oviedo after DC on 07/25/18. PCP Dr. Oviedo was able to get patient admitted to [facility] with orders for IV Vancomycin and Ancef through 08/03 as well as wound care physician. Patient then left [facility] after four days. Patient reports that she is now home with her . Patient reports that the pressure ulceration on buttock started approximately 2 weeks ago. Patient reports that the buttock ulcers are getting more painful and are now bleeding. Patient denies fevers, chills, N/V/D/C, SOB or chest pain. WBC elevated on admission was 16.7 Cellulitis and open ulcerations buttocks - Pt had a noted WBC elevated on admission was 16.7 -> 13.7 (08/01) - At admission the pt had an existing PICC line LUE which was removed - Continue Vancomycin IV with pharmacy to dose and zosyn - Continue Diflucan PO 100mg PO daily - Appreciate Wound care consultation, recommendation: 1. Manually reposition patient every 2 hours for comfort and offloading 2. Please control moisture by use of Purewic female cath and UltraSorb moisture wicking under pads. 3.Cleanse intra gluteal cleft bilateral ischium and vagina skin folds with remedy soft cloth barrier wipes or normal saline.Pat dry 4. Apply Silvadene/Lidocaine 4% , 50/50 mix to open wound base and periwound cover with Maxorb ll cut to fit wound bases secure with ABD /paper tape. 5. Change dressing daily or as needed for dislodgement/exudate management. 6. Follow up with out patient wound center. 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 - IV levaquin (08/04 - 08/10) - b/l buttock wound appeared irritated on 08/07, but have improved over the course of the week - case d/w nurse & floor finisher helper. I have requested close nursing care to ensure that would remains dry with care as outlined above. - (08/08) Per patient I discussed the case in details with patient's son over the phone. I recommending SNF placement at time of DC. Patient refusing [facility] as she as recently left [facility]. Patient willing to consider [facility]. - Unfortunately there are NO beds available at [facility]. - Discharge to SNF in AM 08/11/18 - [place] Case mgmt to work with pt/son to arrange safe discharge. - Pt will need SNF placement for continued aggressive wound care and PT for strengthening. - See discharge orders - f/u PCP, Dr. Derek Oviedo, one week after discharge from SNF. Ulceration left foot - resolved (08/07) - Patient recently admitted to [facility] - treated for cellulitis and failed outpatient therapy - resolved Hypercoagulable (followed by Dr. Atwood outpatient hematology) - Pt with history of splenic infarct, right leg thromboembolic occlusion - Continue patient's home Xarelto Hypothyroidism - Continue home levothyroxine Asthma - Duonebs as needed HTN - Continue home amlodipine 2.5 mg daily DVT prophylaxis with Xarelto 08/11 Patient medically stable and DC'd to SNF, awaiting DC placement - Attending Attestation Patient examined. Assessment and plan formulated with Tiana Brannon PA-C. I agree with the above. (1) Cellulitis Qualifiers: Site of cellulitis: buttock Qualified Code(s): L03.317 - Cellulitis of buttock
[2018-08-12] MEDS: oxyCODONE/Acetaminophen 10/325 Tablet PO PRN ×4 (04:49→21:33)
[2018-08-12] MEDS: LORazepam 0.5 MG Tablet PO PRN ×2 (04:49→14:01)
[2018-08-12] MEDS: Levothyroxine 150 MCG Tablet PO SCH (05:32)
[2018-08-12] MEDS: Nystatin 100,000 UNITS/GM Powder 15 GM Bottle TOPICAL SCH ×4 (09:14→21:34)
[2018-08-12] MEDS: Silver Sulfadiazine 1% Ceam 400 GM Jar TOPICAL SCH (09:14)
[2018-08-12] MEDS: Senna/Docusate Sodium 8.6/50 MG Tablet PO SCH (09:14)
[2018-08-12] MEDS: amLODIPine 5 MG Tablet PO SCH (09:14)
[2018-08-12] MEDS: levoFLOXacin 500 MG Tablet PO SCH (09:14)
[2018-08-12] MEDS: Rivaroxaban 10 MG Tablet PO SCH (09:28)
[2018-08-12] MEDS ORDERED: Pharmacy Ordered Lab Info OTHER ONE (10:45)
--- NOTE | 2018-08-12 11:49 | P.PNIM ---
Subjective Interval history: Patient reports feeling comfortable Offers no new concerns/complaints Physical Exam Vital signs: Vital Signs 08/11/18 12:00 08/11/18 16:00 08/11/18 20:00 Temperature 98.6 F 97.6 F 97.8 F Pulse Rate 65 70 72 Respiratory Rate 18 18 17 Blood Pressure 99/50 L 129/76 121/57 L Pulse Oximetry 95 96 97 08/12/18 00:00 08/12/18 04:00 08/12/18 08:00 Temperature 98.6 F 97.7 F 97.7 F Pulse Rate 76 68 61 Respiratory Rate 17 20 16 Blood Pressure 127/59 L 103/51 L 115/54 L Pulse Oximetry 95 95 95 Intake & Output 08/11/18 08/12/18 08/12/18 18:59 06:59 18:59 Intake Total 720 / 720 350 / 350 Balance 720 / 720 350 / 350 Intake: Oral 720 / 720 350 / 350 Other: # Voids 2 # Incontinent Voids 4 Date of Last Bowel Movement 08/09/18 Narrative: GENERAL: This is a well-nourished, well-developed patient, in no acute distress. SKIN: 3 large open stage two ulcerations bilateral buttock with surrounding erythema, improving. Left anterior foot with ulceration improving. CARDIO: Regular RESP: CTA bilaterally. ABD: +BS, soft, non-tender, nondistended. EXT: R AKA Results - Labs CBC & Chem 7: 08/06/18 06:12 08/12/18 09:54 Laboratory Results - last 24 hr 08/12/18 08/12/18 05:32 09:54 BUN 15 Creatinine 0.76 Estimated GFR 74 L Assessment and Plan - Assessment (1) Cellulitis Code(s): L03.90 - Cellulitis, unspecified Status: Acute Plan: This is a 77 year old female patient with a past medical history which includes : Hypercoagulable, essential thrombocytosis, myelofibrosis, pancreatitis, splenic infarction, right leg thromboembolic occlusion, Osteoarthritis, HTN, Anemia, Hyperlipidemia, Hypothyroidism, Asthma, ckd, Anxiety/Depression, Fibromyalgia, erosive gastritis and right AKA on 01/24/[address] Forbes. Patient is a poor historian, information gathered from patient, prior computerized charting and talking with outpatient PCP DR. Oviedo. Notes from [facility] reports that patient was set to the hospital from wound care clinic Dr. Cardona due to failed outpatient abx therapy for LLE ulcer which had been present for 6 weeks prior to arrival on 07/20/18. Patient was admitted to [facility] from 07/20/18 to 07/23/18 treated for cellulitis of LLE. Patient was treated with Zosyn and Vancomycin. Patient then left [facility] AMA. Patient did see her PCP Dr. Oviedo after DC on 07/25/18. PCP Dr. Oviedo was able to get patient admitted to [facility] with orders for IV Vancomycin and Ancef through 08/03 as well as wound care physician. Patient then left [facility] after four days. Patient reports that she is now home with her . Patient reports that the pressure ulceration on buttock started approximately 2 weeks ago. Patient reports that the buttock ulcers are getting more painful and are now bleeding. Patient denies fevers, chills, N/V/D/C, SOB or chest pain. WBC elevated on admission was 16.7 Cellulitis and open ulcerations buttocks - Pt had a noted WBC elevated on admission was 16.7 -> 13.7 (08/01) - At admission the pt had an existing PICC line LUE which was removed - Continue Vancomycin IV with pharmacy to dose and zosyn - Continue Diflucan PO 100mg PO daily - Appreciate Wound care consultation, recommendation: 1. Manually reposition patient every 2 hours for comfort and offloading 2. Please control moisture by use of Purewic female cath and UltraSorb moisture wicking under pads. 3.Cleanse intra gluteal cleft bilateral ischium and vagina skin folds with remedy soft cloth barrier wipes or normal saline.Pat dry 4. Apply Silvadene/Lidocaine 4% , 50/50 mix to open wound base and periwound cover with Maxorb ll cut to fit wound bases secure with ABD /paper tape. 5. Change dressing daily or as needed for dislodgement/exudate management. 6. Follow up with out patient wound center. 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 - IV levaquin (08/04 - 08/10) - b/l buttock wound appeared irritated on 08/07, but have improved over the course of the week - case d/w nurse & insulation and flooring assembler. I have requested close nursing care to ensure that would remains dry with care as outlined above. - (08/08) Per patient I discussed the case in details with patient's son over the phone. I recommending SNF placement at time of DC. Patient refusing [facility] as she as recently left [facility]. Patient willing to consider [facility]. - Unfortunately there are NO beds available at [facility]. - Discharge to SNF in AM 08/11/18 - [place] Case mgmt to work with pt/son to arrange safe discharge. - Pt will need SNF placement for continued aggressive wound care and PT for strengthening. - See discharge orders - f/u PCP, Dr. Derek Oviedo, one week after discharge from SNF. Ulceration left foot - resolved (08/07) - Patient recently admitted to [facility] - treated for cellulitis and failed outpatient therapy - resolved Hypercoagulable (followed by Dr. Atwood outpatient hematology) - Pt with history of splenic infarct, right leg thromboembolic occlusion - Continue patient's home Xarelto Hypothyroidism - Continue home levothyroxine Asthma - Duonebs as needed HTN - Continue home amlodipine 2.5 mg daily DVT prophylaxis with Xarelto 08/11 Patient medically stable and DC'd to SNF, awaiting DC placement 08/12 Patient medically stable and orders to DC to SNF written 08/11, awaiting DC placement - Attending Attestation Patient examined. Assessment and plan formulated with Tiana Brannon PA-C. I agree with the above. (1) Cellulitis Qualifiers: Site of cellulitis: buttock Qualified Code(s): L03.317 - Cellulitis of buttock
[2018-08-12] MEDS: Docusate Sodium 100 MG Capsule PO SCH (21:34)
[2018-08-13] MEDS: LORazepam 0.5 MG Tablet PO PRN ×2 (06:40→15:09)
[2018-08-13] MEDS: Levothyroxine 150 MCG Tablet PO SCH (06:40)
[2018-08-13] MEDS: Nystatin 100,000 UNITS/GM Powder 15 GM Bottle TOPICAL SCH ×4 (10:06→20:27)
[2018-08-13] MEDS: Rivaroxaban 10 MG Tablet PO SCH (10:06)
[2018-08-13] MEDS: amLODIPine 5 MG Tablet PO SCH (10:06)
[2018-08-13] MEDS: Docusate Sodium 100 MG Capsule PO SCH ×2 (10:06→20:26)
[2018-08-13] MEDS: levoFLOXacin 500 MG Tablet PO SCH (10:06)
[2018-08-13] MEDS: Silver Sulfadiazine 1% Ceam 400 GM Jar TOPICAL SCH (10:07)
[2018-08-13] MEDS: oxyCODONE/Acetaminophen 10/325 Tablet PO PRN ×3 (10:09→20:26)
--- NOTE | 2018-08-13 11:15 | P.PNIM ---
Subjective Interval history: No new complaints/concerns DC'd to SNF 08/11 awaiting placement Physical Exam Vital signs: Vital Signs 08/12/18 12:00 08/12/18 16:00 08/12/18 20:00 Temperature 98.0 F 98.2 F 97.7 F Pulse Rate 66 62 69 Respiratory Rate 16 16 17 Blood Pressure 101/52 L 107/53 L 107/52 L Pulse Oximetry 95 96 97 08/13/18 00:00 08/13/18 04:00 08/13/18 08:00 Temperature 97.7 F 97.9 F 97.9 F Pulse Rate 70 80 70 Respiratory Rate 17 16 18 Blood Pressure 122/56 L 131/59 L 118/54 L Pulse Oximetry 97 98 95 Intake & Output 08/12/18 08/13/18 08/13/18 18:59 06:59 18:59 Intake Total 420 / 420 120 / 120 Output Total 3 / 3 Balance 417 / 417 120 / 120 Weight 68.7 kg Intake: Oral 420 / 420 120 / 120 Output: Urine 3 / 3 Other: # Voids 1 # Incontinent Voids 1 Date of Last Bowel Movement 08/11/18 # Bowel Movements 1 Narrative: GENERAL: This is a well-nourished, well-developed patient, in no acute distress. SKIN: 3 large open stage two ulcerations bilateral buttock with surrounding erythema, improving. Left anterior foot with ulceration improving. CARDIO: Regular RESP: CTA bilaterally. ABD: +BS, soft, non-tender, nondistended. EXT: R AKA Results - Labs CBC & Chem 7: 08/06/18 06:12 08/12/18 09:54 Assessment and Plan - Assessment (1) Cellulitis Code(s): L03.90 - Cellulitis, unspecified Status: Acute Plan: This is a 77 year old female patient with a past medical history which includes : Hypercoagulable, essential thrombocytosis, myelofibrosis, pancreatitis, splenic infarction, right leg thromboembolic occlusion, Osteoarthritis, HTN, Anemia, Hyperlipidemia, Hypothyroidism, Asthma, ckd, Anxiety/Depression, Fibromyalgia, erosive gastritis and right AKA on 01/24/[address] Forbes. Patient is a poor historian, information gathered from patient, prior computerized charting and talking with outpatient PCP DR. Oviedo. Notes from [facility] reports that patient was set to the hospital from wound care clinic Dr. Cardona due to failed outpatient abx therapy for LLE ulcer which had been present for 6 weeks prior to arrival on 07/20/18. Patient was admitted to [facility] from 07/20/18 to 07/23/18 treated for cellulitis of LLE. Patient was treated with Zosyn and Vancomycin. Patient then left [facility] AMA. Patient did see her PCP Dr. Oviedo after DC on 07/25/18. PCP Dr. Oviedo was able to get patient admitted to [facility] with orders for IV Vancomycin and Ancef through 08/03 as well as wound care physician. Patient then left [facility] AM after four days. Patient reports that she is now home with her . Patient reports that the pressure ulceration on buttock started approximately 2 weeks ago. Patient reports that the buttock ulcers are getting more painful and are now bleeding. Patient denies fevers, chills, N/V/D/C, SOB or chest pain. WBC elevated on admission was 16.7 Cellulitis and open ulcerations buttocks - Pt had a noted WBC elevated on admission was 16.7 -> 13.7 (08/01) - At admission the pt had an existing PICC line LUE which was removed - Continue Vancomycin IV with pharmacy to dose and zosyn - Continue Diflucan PO 100mg PO daily - Appreciate Wound care consultation, recommendation: 1. Manually reposition patient every 2 hours for comfort and offloading 2. Please control moisture by use of Purewic female cath and UltraSorb moisture wicking under pads. 3.Cleanse intra gluteal cleft bilateral ischium and vagina skin folds with remedy soft cloth barrier wipes or normal saline.Pat dry 4. Apply Silvadene/Lidocaine 4% , 50/50 mix to open wound base and periwound cover with Maxorb ll cut to fit wound bases secure with ABD /paper tape. 5. Change dressing daily or as needed for dislodgement/exudate management. 6. Follow up with out patient wound center. 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 - IV levaquin (08/04 - 08/10) - b/l buttock wound appeared irritated on 08/07, but have improved over the course of the week - case d/w nurse & inspector floor sub assembly. I have requested close nursing care to ensure that would remains dry with care as outlined above. - (08/08) Per patient I discussed the case in details with patient's son over the phone. I recommending SNF placement at time of DC. Patient refusing [facility] as she as recently left [facility]. Patient willing to consider [facility] - Unfortunately there are NO beds available at [facility]. - Discharge to SNF in AM 08/11/18 - [facility] mg[facility] to work with pt/son to arrange safe discharge. - Pt will need SNF placement for continued aggressive wound care and PT for strengthening. - See discharge orders - f/u PCP, Dr. Derek Oviedo, one week after discharge from SNF. Ulceration left foot - resolved (08/07) - Patient recently admitted to [facility] - treated for cellulitis and failed outpatient therapy - resolved Hypercoagulable (followed by Dr. Atwood outpatient hematology) - Pt with history of splenic infarct, right leg thromboembolic occlusion - Continue patient's home Xarelto Hypothyroidism - Continue home levothyroxine Asthma - Duonebs as needed HTN - Continue home amlodipine 2.5 mg daily DVT prophylaxis with Xarelto 08/11 Patient medically stable and DC'd to SNF, awaiting DC placement 08/12 Patient medically stable and orders to DC to SNF written 08/11, awaiting DC placement 08/12 Patient continues to remain medically stable DC'd 08/11 awaiting SNF placement - Attending Attestation Patient examined. Assessment and plan formulated with Tiana Brannon PA-C. I agree with the above. (1) Cellulitis Qualifiers: Site of cellulitis: buttock Qualified Code(s): L03.317 - Cellulitis of buttock
[2018-08-13 23:13] VITALS: RESP 20
[2018-08-14] MEDS: oxyCODONE/Acetaminophen 10/325 Tablet PO PRN ×2 (05:52→10:56)
[2018-08-14] MEDS: Levothyroxine 150 MCG Tablet PO SCH (05:52)
[2018-08-14] MEDS: Rivaroxaban 10 MG Tablet PO SCH (08:22)
[2018-08-14] MEDS: amLODIPine 5 MG Tablet PO SCH (08:22)
[2018-08-14] MEDS: Docusate Sodium 100 MG Capsule PO SCH (08:23)
[2018-08-14] MEDS: Nystatin 100,000 UNITS/GM Powder 15 GM Bottle TOPICAL SCH ×2 (08:23→12:43)
[2018-08-14] MEDS: Silver Sulfadiazine 1% Ceam 400 GM Jar TOPICAL SCH (08:24)
[2018-08-14 09:59] VITALS: O2SAT 95
--- NOTE | 2018-08-14 11:16 | P.PNIM ---
Subjective Interval history: pt now pushing dc to home instead of snf. Physical Exam Vital signs: Vital Signs 08/13/18 12:00 08/13/18 16:00 08/13/18 20:00 Temperature 97.9 F 98.3 F 97.8 F Pulse Rate 64 95 H 75 Respiratory Rate 18 18 20 Blood Pressure 128/60 109/70 111/53 L Pulse Oximetry 95 96 96 08/14/18 00:00 08/14/18 04:00 08/14/18 08:00 Temperature 98 F 98 F 97.7 F Pulse Rate 65 69 67 Respiratory Rate 20 20 20 Blood Pressure 91/54 L 111/54 L 104/51 L Pulse Oximetry 95 98 95 Intake & Output 08/13/18 08/14/18 08/14/18 18:59 06:59 18:59 Intake Total 420 / 420 420 / 420 Output Total 0 / 0 Balance 420 / 420 420 / 420 Intake: Oral 420 / 420 420 / 420 Output: Urine/Stool Mix 0 / 0 Other: # Voids 4 2 Date of Last Bowel Movement 08/13/18 08/13/18 08/13/18 # Bowel Movements 2 2 heart reg lung cta abd s/nt ext buttock excoriations.superficial ulcerations improving left dorsal foot superficial ulceration improving. right aka Results - Labs CBC & Chem 7: 08/06/18 06:12 08/12/18 09:54 Assessment and Plan - Assessment (1) Cellulitis Code(s): L03.90 - Status: Acute Plan: This is a 77 year old female patient with a past medical history which includes : Hypercoagulable, essential thrombocytosis, myelofibrosis, pancreatitis, splenic infarction, right leg thromboembolic occlusion, Osteoarthritis, HTN, Anemia, Hyperlipidemia, Hypothyroidism, Asthma, ckd, Anxiety/Depression, Fibromyalgia, erosive gastritis and right AKA on 01/24/[address] Forbes. Patient is a poor historian, information gathered from patient, prior computerized charting and talking with outpatient PCP DR. Oviedo. Notes from [facility] reports that patient was set to the hospital from wound care clinic Dr. Cardona due to failed outpatient abx therapy for LLE ulcer which had been present for 6 weeks prior to arrival on 07/20/18. Patient was admitted to [facility] from 07/20/18 to 07/23/18 treated for cellulitis of LLE. Patient was treated with Zosyn and Vancomycin. Patient then left [facility]. Patient did see her PCP Dr. Oviedo after DC on 07/25/18. PCP Dr. Oviedo was able to get patient admitted to [facility] with orders for IV Vancomycin and Ancef through 08/03 as well as wound care physician. Patient then left [facility] after four days. Patient reports that she is now home with her . Patient reports that the pressure ulceration on buttock started approximately 2 weeks ago. Patient reports that the buttock ulcers are getting more painful and are now bleeding. Patient denies fevers, chills, N/V/D/C, SOB or chest pain. WBC elevated on admission was 16.7 Cellulitis and open ulcerations buttocks - Pt had a noted WBC elevated on admission was 16.7 -> 13.7 (08/01) - At admission the pt had an existing PICC line LUE which was removed - Continue Vancomycin IV with pharmacy to dose and zosyn - Continue Diflucan PO 100mg PO daily - Appreciate Wound care consultation, recommendation: 1. Manually reposition patient every 2 hours for comfort and offloading 2. Please control moisture by use of Purewic female cath and UltraSorb moisture wicking under pads. 3.Cleanse intra gluteal cleft bilateral ischium and vagina skin folds with remedy soft cloth barrier wipes or normal saline.Pat dry 4. Apply Silvadene/Lidocaine 4% , 50/50 mix to open wound base and periwound cover with Maxorb ll cut to fit wound bases secure with ABD /paper tape. 5. Change dressing daily or as needed for dislodgement/exudate management. 6. Follow up with out patient wound center. 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 - IV levaquin (08/04 - 08/10) - b/l buttock wound appeared irritated on 08/07, but have improved over the course of the week - case d/w nurse & floor helper. I have requested close nursing care to ensure that would remains dry with care as outlined above. - (08/08) Per patient I discussed the case in details with patient's son over the phone. I recommending SNF placement at time of DC. Patient refusing [facility] as she as recently [facility]. - [facility] mgmt to work with pt/son to arrange safe discharge. - Pt will need SNF placement for continued aggressive wound care and PT for strengthening. - f/u PCP, Dr. Derek Oviedo, one week after discharge from SNF. Pt still awaiting dc to snf. today she is asking more about dc directly to home with hhc/wound care...We still prefer snf as her would be unable to help her at home. Ulceration left foot - resolved (08/07) - Patient recently admitted to [facility] - treated for cellulitis and failed outpatient therapy - resolved Hypercoagulable (followed by Dr. Atwood outpatient hematology) - Pt with history of splenic infarct, right leg thromboembolic occlusion - Continue patient's home Xarelto Hypothyroidism - Continue home levothyroxine Asthma - Duonebs as needed HTN - Continue home amlodipine 2.5 mg daily DVT prophylaxis with Xarelto 08/11 Patient medically stable and DC'd to SNF, awaiting DC placement 08/12 Patient medically stable and orders to DC to SNF written 08/11, awaiting DC placement 08/12 Patient continues to remain medically stable DC'd 08/11 awaiting SNF placement 08/14..still awaiting snf. (1) Cellulitis Qualifiers: Site of cellulitis: buttock Qualified Code(s): L03.317 - Cellulitis of buttock
--- NOTE | 2018-08-14 13:09 | P.DCO ---
- Diagnosis (1) Cellulitis (2) Decubitus skin ulcer - Physical Therapy Order: Evaluate and treat - Home Health Nursing Order: Medical education, Signs/symptoms of disease process, Wound care and dressing changes, Nursing assessment with vital signs Instructions: Requesting daily C visits Recommendation: 1. Manually reposition patient every 2 hours for comfort and offloading to left and right side. 2. Pleas control moisture by use of Purewic female cath and UltraSorb moisture wicking underpads. 3. Cleanse intra gluteal cleft bilateral ischium and vagina skin folds with remedy soft cloth barrier wipes or normal saline.Pat dry 4. Apply Silvadene/Lidocaine 4% , 50/50 mix to open wound base and periwound cover with Maxorb ll cut to fit wound bases secure with ABD /paper tape. 5. Change dressing daily or as needed for dislodgement/exudate management. 6. Apply thin even layer of remedy antifungal powder to pannus/groin skin folds. 7. Follow up with out patient wound center. - Health Informatics Specialist Order: To evaluate: Living conditions/environment, Support services Order: To provide: Long range planning, Community services - Case Management Consult Yes - Certification I have seen patient Sheila Villa on 08/14/18. My clinical findings support the need for the requested home health care services because: Limited mobility due to disease progression, Deconditioned with increased weakness, Limited ability to care for self I certify that my clinical findings support that this patient is homebound because: Unsteady gait/balance, Unsafe to leave home unassisted (1) Cellulitis Qualifiers: Site of cellulitis: buttock Qualified Code(s): L03.317 - Cellulitis of buttock (2) Decubitus skin ulcer Qualifiers: Pressure injury location: buttock Pressure injury stage: stage 2 Laterality : unspecified laterality Qualified Code(s): L89.302 - Pressure ulcer of unspecified buttock, stage 2
[2018-08-14 20:08] VITALS: BP 111/74; PULSE 70; TEMP 98
--- NOTE | 2018-08-20 14:41 | P.DS ---
Date of admission: 07/31/18 16:06 Primary care physician: Derek Oviedo MD Brief History from admission: This is a 77 year old female patient with a past medical history which includes : Hypercoagulable, essential thrombocytosis, myelofibrosis, pancreatitis, splenic infarction, right leg thromboembolic occlusion, Osteoarthritis, HTN, Anemia, Hyperlipidemia, Hypothyroidism, Asthma, ckd, Anxiety/Depression, Fibromyalgia, erosive gastritis and right AKA on 01/24/[address] Forbes. Patient is a poor historian, information gathered from patient, prior computerized charting and talking with outpatient PCP DR. Oviedo. Notes from [facility] reports that patient was set to the hospital from wound care clinic Dr. Cardona due to failed outpatient abx therapy for LLE ulcer which had been present for 6 weeks prior to arrival on 07/20/18. Patient was admitted to [facility] from 07/20/18 to 07/23/18 treated for cellulitis of LLE. Patient was treated with Zosyn and Vancomycin. Patient then left [facility] AMA. Patient did see her PCP Dr. Oviedo after DC on 07/25/18. PCP Dr. Oviedo was able to get patient admitted to [facility] with orders for IV Vancomycin and Ancef through 08/03 as well as wound care physician. Patient then left [facility] after four days. Patient reports that she is now home with her . Patient reports that the pressure ulceration on buttock started approximately 2 weeks ago. Patient reports that the buttock ulcers are getting more painful and are now bleeding. Patient denies fevers, chills, N/V/D/C, SOB or chest pain. WBC elevated on admission was 16.7 Past Medical/Surgical History Hypercoagulable essential thrombocytosis myelofibrosis pancreatitis splenic infarction right leg thromboembolic occlusion Osteoarthritis HTN Anemia Hyperlipidemia Hypothyroidism Asthma ckd Anxiety/Depression Fibromyalgia Hx of erosive gastritis Past Surgical History: right AKA on 01/24/[address] Forbes Left total hip arthroplasty with direct anterior exposure Anterior colporrhaphy Hysterectomy Tubal ligation Breast lumpectomy (benign) Family History Mother - Hx of aneurysm, blood clot when she was Father - CAD/[place] Brother - Hx of CAD, Ulcerative colitis, Diabetes Sister - Hx of colon cancer Social History no etoh/tob DS: Diagnosis - Discharge Diagnosis (1) Cellulitis Status: Acute (2) Decubitus skin ulcer Status: Acute DS: Medications - Discharge Medications Prescriptions: docusate sodium [DOK] 100 mg PO BID 30 Days #60 cap lidocaine-transparent dressing [LMX 4 Plus] 1 applicatio TOPICAL PRN PRN 30 Days each PRN Reason: dressing changes nystatin 1 applicatio TOPICAL BID 30 Days g silver sulfadiazine [Silvadene] 1 applicatio TOPICAL DAILY 30 Days g DS: Summary Hospital Course: - Assessment (1) Cellulitis Code(s): L03.90 - Status: Acute Plan: This is a 77 year old female patient with a past medical history which includes : Hypercoagulable, essential thrombocytosis, myelofibrosis, pancreatitis, splenic infarction, right leg thromboembolic occlusion, Osteoarthritis, HTN, Anemia, Hyperlipidemia, Hypothyroidism, Asthma, ckd, Anxiety/Depression, Fibromyalgia, erosive gastritis and right AKA on 01/24/[address] Forbes. Patient is a poor historian, information gathered from patient, prior computerized charting and talking with outpatient PCP DR. Oviedo. Notes from ER [facility] reports that patient was set to the hospital from wound care clinic Dr. Cardona due to failed outpatient abx therapy for LLE ulcer which had been present for 6 weeks prior to arrival on 07/20/18. Patient was admitted to [facility] from 07/20/18 to 07/23/18 treated for cellulitis of LLE. Patient was treated with Zosyn and Vancomycin. Patient then left [facility] AMA. Patient did see her PCP Dr. Oviedo after DC on 07/25/18. PCP Dr. Oviedo was able to get patient admitted to [facility] with orders for IV Vancomycin and Ancef through 08/03 as well as wound care physician. Patient then left [facility] after four days. Patient reports that she is now home with her . Patient reports that the pressure ulceration on buttock started approximately 2 weeks ago. Patient reports that the buttock ulcers are getting more painful and are now bleeding. Patient denies fevers, chills, N/V/D/C, SOB or chest pain. WBC elevated on admission was 16.7 Cellulitis and open ulcerations buttocks - Pt had a noted WBC elevated on admission was 16.7 -> 13.7 (08/01) - At admission the pt had an existing PICC line LUE which was removed - Continue Vancomycin IV with pharmacy to dose and zosyn - Continue Diflucan PO 100mg PO daily - Appreciate Wound care consultation, recommendation: 1. Manually reposition patient every 2 hours for comfort and offloading 2. Please control moisture by use of Purewic female cath and UltraSorb moisture wicking under pads. 3.Cleanse intra gluteal cleft bilateral ischium and vagina skin folds with remedy soft cloth barrier wipes or normal saline.Pat dry 4. Apply Silvadene/Lidocaine 4% , 50/50 mix to open wound base and periwound cover with Maxorb ll cut to fit wound bases secure with ABD /paper tape. 5. Change dressing daily or as needed for dislodgement/exudate management. 6. Follow up with out patient wound center. 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 - IV levaquin (08/04 - 08/10) - b/l buttock wound appeared irritated on 08/07, but have improved over the course of the week - case d/w nurse & floor attendant. I have requested close nursing care to ensure that would remains dry with care as outlined above. - (08/08) Per patient I discussed the case in details with patient's son over the phone. I recommending SNF placement at time of DC. Patient refusing [facility] as she as recently left [facility]. - [facility] mgmt to work with pt/son to arrange safe discharge. - Pt will need SNF placement for continued aggressive wound care and PT for strengthening. - f/u PCP, Dr. Derek Oviedo, one week after discharge from SNF. Pt still awaiting dc to snf. today she is asking more about dc directly to home with hhc/wound care...We still prefer snf as her would be unable to help her at home. After refusal from snf and discussing with her son...Pt will go home with HHC/ PT. discussed with her pcp. needs wound care per [facility] Ulceration left foot - resolved (08/07) - Patient recently admitted to [facility] - treated for cellulitis and failed outpatient therapy - resolved Hypercoagulable (followed by Dr. Atwood outpatient hematology) - Pt with history of splenic infarct, right leg thromboembolic occlusion - Continue patient's home Xarelto Hypothyroidism - Continue home levothyroxine Asthma - Duonebs as needed HTN - Continue home amlodipine 2.5 mg daily DVT prophylaxis with Xarelto 08/11 Patient medically stable and DC'd to SNF, awaiting DC placement 08/12 Patient medically stable and orders to DC to SNF written 08/11, awaiting DC placement 08/12 Patient continues to remain medically stable DC'd 08/11 awaiting SNF placement 08/14..still awaiting snf. SEE above...home with [facility]. (1) Cellulitis Qualifiers: Site of cellulitis: buttock Qualified Code(s): L03.317 - Cellulitis of buttock - Time Spent with Patient Total time spent providing and/or coordinating discharge services: Greater than 30 minutes - Quality: VTE Deep Vein Thrombosis/Pulmonary Embolism Present on Admission: No Exam Vital signs: heart reg lung cta abd s/nt ext rigiht aka buttock excoriations/ulcerations much improved no cellulitis or drainage left dorsal foot superficial ulceration minimal. no drainage or redness Results Procedures completed during hospitalization: None Discharge Plan - Discharge Disposition Patient Disposition: W/Home Health Service - Discharge Condition Condition: Stable - Discharge Order Discharge Orders: Discharge Order (Routine); Ordered 08/11/18 Ordered By: Tiana Brannon - Discharge Details Anticipated Discharge Date: 08/11/18 - Physicians Team Primary Care Provider: Derek Oviedo Attending Provider: Austin Campbell Other Providers: [facility],Agency ; [facility],Agency
== END 2018-08-14 17:09 | disposition home health service (06) ==
LOC: NEDAMB 11:40 → NEDA 11:40 → NEPFCDU 17:44 → N04 08-02 11:49
PROVIDERS: ADMIT Hospitalist; ATTEND Hospitalist